=== PATIENT | male | born 1990 | race Caucasian/White ===

== ENCOUNTER 2021-10-15 11:33 | Emergency (ER) | payer SELFPAY ==
[2021-10-15 12:36] LABS: Basophils % 1.3 % (0-1.3); Hematocrit 43.5 % (39.6-49.0); Lymphocytes % 14.2 % (15.3-44.8); MPV 7.9 fL (7.6-11.3); RBC Red Blood Cell Count 4.84 M/uL (4.33-5.43)
--- NOTE | 2021-10-15 12:53 | RAD REPORT ---
EXAM DESCRIPTION: CT - Abdomen Pelvis W Contrast - 10/15/2021 12:36 pm CLINICAL HISTORY: Abdominal pain COMPARISON: none. TECHNIQUE: Computed axial tomography of the abdomen pelvis was obtained. 100 cc Isovue-300 was admin istered intravenously. Oral contrast was not requested which limits evaluation of bowel. All CT scans are performed using dose optimization technique as appropriate and may include automated exposure control or mA/KV adjustment according to patient size. FINDINGS: Mild fatty infiltration of the liver Spleen, pancreas, adrenal and kidneys appear unremarkable. There is no evidence of diverticulitis. Normal appendix 7 millimeter sclerosis right femoral neck. 14 millimeter sclerosis left acetabulum. Bladder is distended IMPRESSION: Sclerosis right femoral neck and left acetabulum is nonspecific. These may represent [place]. Blastic metastases can also have this appearance. This should be correlated clinically. Fo llowup x-ray in 3 months recommended to assess stability. Bladder distention
[2021-10-15 13:09] LABS: ALT/SGPT 154 U/L (12-78); AST/SGOT 71 U/L (15-37); Albumin 3.3 g/dL (3.4-5.0); Alkaline Phosphatase 190 U/L (45-117); BUN Blood Urea Nitrogen 8 mg/dL (7-18); Bicarbonate 29 mmol/L (21-32); Bilirubin Direct 0.2 mg/dL (0-0.2); Bilirubin Total 0.5 mg/dL (0.2-1.0); Glucose Level 101 mg/dL (74-106); Lipase 74 U/L (73-393); Potassium 3.7 mmol/L (3.5-5.1); Protein, Total 7.9 g/dL (6.4-8.2); Sodium Level 136 mmol/L (136-145)
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
--- NOTE | 2021-10-15 13:50 | EDPHYS ---
Physician Documentation [facility] Name: Sukhwinder Lorenzo Age: 31 yrs Sex: Male : 1990 Arrival Date: 10/15/2021 Time: 11:33 Bed 14 Private MD: ED Physician Raf Menon HPI: 10/15 17:09 This 31 yrs old Male presents to ER via Ambulatory with complaints of Swollen Glands, kb Abdominal Pain. 17:09 The patient presents with abdominal pain. Onset: The symptoms/episode began/occurred 2 kb day(s) ago. The symptoms do not radiate. Associated signs and symptoms: none. The symptoms are described as constant. Modifying factors: The symptoms are alleviated by nothing, the symptoms are aggravated by pressure. Severity of pain: At its worst the pain was moderate in the emergency department the pain is unchanged. The patient has not experienced similar symptoms in the past. The patient has not recently seen a physician. Pt reports LUQ pain that started 2 days ago. Concerned about abscess because he had one on the right side that felt similar. Historical: - Allergies: 11:43 No Known Allergies; vg1 - Home Meds: 11:43 None [Active]; vg1 - PMHx: 11:43 Hep C; vg1 - PSHx: 11:43 Abscess Drain from RUQ; vg1 - Immunization history:: Client reports receiving the 2nd dose of the Covid vaccine. - Social history:: Smoking status: Patient reports the use of cigarette tobacco products, smokes one-half pack cigarettes per day. ROS: 17:07 Constitutional: Negative for fever, chills, and weight loss. kb 17:07 Abdomen/GI: Positive for abdominal pain, Negative for nausea, vomiting, and diarrhea. 17:07 All other systems are negative. Exam: 17:07 Constitutional: This is a well developed, well nourished patient who is awake, alert, kb and in no acute distress. Head/Face: Normocephalic, atraumatic. ENT: Moist Mucous membranes Cardiovascular: Regular rate and rhythm with a normal S1 and S2. No gallops, murmurs, or rubs. No pulse deficits. Respiratory: Respirations even and unlabored. No increased work of breathing, no retractions or nasal flaring. Skin: Warm, dry with normal turgor. Normal color. MS/ Extremity: Pulses equal, no cyanosis. Neurovascular intact. Full, normal range of motion. Neuro: Awake and alert, GCS 15, oriented to person, place, time, and situation. Moves all extremities. Normal gait. Psych: Awake, alert, with orientation to person, place and time. Behavior, mood, and affect are within normal limits. 17:07 Abdomen/GI: Inspection: abdomen appears normal, Bowel sounds: normal, Palpation: soft, in all quadrants, moderate abdominal tenderness, in the left upper quadrant. Vital Signs: 11:41 BP 165 / 98; Pulse 89; Resp 16; Temp 97.9; Pulse Ox 100% ; Weight 62.6 kg; Height 5 ft. vg1 9 in. (175.26 cm); Pain 6/10; 12:43 BP 116 / 54; Pulse 77; Resp 18; Pulse Ox 100% ; Pain 8/10; jh6 11:41 Body Mass Index 20.38 (62.60 kg, 175.26 cm) vg1 MDM: 11:47 Patient medically screened. kb 17:07 Data reviewed: vital signs, nurses notes. Data interpreted: Pulse oximetry: on room air kb is 100 %. Interpretation: normal. Counseling: I had a detailed discussion with the patient and/or guardian regarding: the historical points, exam findings, and any diagnostic results supporting the discharge/admit diagnosis, lab results, radiology results, the need for outpatient follow up, a family practitioner, to return to the emergency department if symptoms worsen or persist or if there are any questions or concerns that arise at home. ED course: Discussed incidental finding of sclerosis and pt given copy of report. Pt educated to follow up with PCP for further evaluation. 10/15 12:00 Order name: Basic Metabolic Panel kb 10/15 12:00 Order name: CBC with Diff kb 10/15 12:00 Order name: Hepatic Function kb 10/15 12:00 Order name: Lipase kb 10/15 12:00 Order name: Basic Metabolic Panel; Complete Time: 13:13 EDMS 10/15 12:01 Order name: CBC with Automated Diff; Complete Time: 12:37 EDMS 10/15 12:00 Order name: IV Saline Lock; Complete Time: 12:23 kb 10/15 12:00 Order name: Labs collected and sent; Complete Time: 12:23 kb 10/15 12:00 Order name: CT Abd/Pelvis - IV Contrast Only; Complete Time: 12:54 kb 10/15 12:01 Order name: Liver (Hepatic) Function; Complete Time: 13:13 EDMS 10/15 12:01 Order name: Lipase; Complete Time: 13:13 EDMS Administered Medications: 13:50 CANCELLED (Patient Refused): morphine 4 mg IVP once; RASS on ADMIN: Combtv4, Very kb Agttd3, Agttd2, Rstlss1, AlertClm0, Drwsy-1, Lt Sdtn-2, Mod Sdtn-3, Dp Sdtn-4, UnArsble-5 14:00 Drug: Zofran (Ondansetron) 4 mg Route: IVP; Site: right antecubital; [facility] 14:10 Follow up: Response: No adverse reaction [facility] 14:00 Drug: Ketorolac 15 mg Route: IVP; Site: right antecubital; [facility] 14:10 Follow up: Response: No adverse reaction [facility] Disposition: 17:59 Co-signature as Attending Physician, Raf Menon MD I agree with the assessment and rn plan of care. Attestation: The patient's history, exam findings, diagnostics, and a summary of any interventions or procedures was reviewed in detail with Naty HELLER. Disposition Summary: 10/15/21 13:49 Discharge Ordered Location: Home kb Condition: Stable kb Diagnosis - Upper abdominal pain, unspecified kb Followup: kb - With: Emergency Department - When: As needed - Reason: Worsening of condition Followup: kb - With: Private Physician - When: 2 - 3 days - Reason: Recheck today's complaints, Continuance of care, Re-evaluation by your physician Discharge Instructions: - Discharge Summary Sheet kb - Abdominal Pain, Adult, Llyc-us-Ecph kb Forms: - Medication Reconciliation Form kb - Thank You Letter kb - Antibiotic Education kb - Prescription Opioid Use kb Prescriptions: - Diclofenac Sodium 75 mg Oral tablet,delayed release (DR/EC) - take 1 tablet by ORAL route 2 times per day As needed; 30 tablet; Refills: 0, kb Product Selection Permitted Signatures: Dispatcher [employer] Naty Campbell FNP-C FNP-Raf Guerrero MD MD rn Garcia, Victoria, RN RN [facility] Aminata Kelsey RN RN jh6 Corrections: (The following items were deleted from the chart) 13:50 13:33 morphine 4 mg IVP once; RASS on ADMIN: Combtv4, Very Agttd3, Agttd2, Rstlss1, kb AlertClm0, Drwsy-1, Lt Sdtn-2, Mod Sdtn-3, Dp Sdtn-4, UnArsble-5 ordered. kb
[2021-10-15] MEDS ORDERED: KETOROLAC 30 MG/ML INJ ONE (13:54)
[2021-10-15] MEDS ORDERED: ONDANSETRON 4 MG/2 ML VIAL ONE (13:54)
[2021-10-15 14:29] VITALS: TEMP 97.9; O2SAT 100
[2021-10-15 14:31] VITALS: BP 116/54
== END 2021-10-15 14:18 | disposition home or self-care (01) ==
LOC: ER 11:33
DX: R10.10 Upper abdominal pain, unspecified (principal); F17.210 Nicotine dependence, cigarettes, uncomplicated
CPT/HCPCS: 36415; 74177; 80048; 80076; 82565; 83690; 85025; 96374; 96375; 99284; J2405; Q9967

== ENCOUNTER 2021-11-12 03:02 | Emergency (ER) | payer SELFPAY ==
--- OUTSIDE RECORDS SUMMARY | 2021-11-12 03:05 | XMS REPORT | Continuity of Care Document ---
:[address] [facility] t Address [address] [place] [address] Care Team Providers Name Role Phone Pcp, Does Not Have A Primary Care Physician Therapy, Covid Infusion Attending Clinician Unavailable Braulio DRUMMOND, Lela Attending Clinician Lela RAMSEY Attending Clinician Unavailable Problems This patient has no known problems. Allergies, Adverse Reactions, Alerts Allergy Allergy Status Severity Reaction(s) Onset Inactive Treating Comm ents Source Name Type Date Date Clinician NO KNOWN Drug Active [facility] ALLERGIE Class ity of S [facility] Social History Social Habit Start Date Stop Date Quantity Comments Source Sex Assigned At [birth year] [facility] 00:00:00 00:00:00 [facility] Smoking Status Start Date Stop Date Source Unknown if ever smoked [facility] Medications Ordered Filled Start Stop Current Ordering Indication Dosage Frequency Signature Comments Components Source Medication Medication Date Date Medication? Clinician (SIG) Name Name casirivimab 2020-11- No [id number] 1200mg 1,200 mg, [facility] -imdevimab 12-28 Subcutaneo it y of (REGEN-COV 23:45: 22:33 [place], ONCE, [place] (EUA)) 00 :00 1 dose, On Medical injection [facility] (CO-FORMULA 10/27/21 TION) 1,200 at 1745, mg Routine Vital Signs Vital Name Observation Time Observation Value Comments Source Diastolic blood 2021-10-27 23:18:00 77 mm[Hg] Unive rsity of pressure [facility] Heart rate 2021-10-27 23:18:00 89 /min [facility] Body temperature 2021-10-27 23:18:00 37.22 [facility] 2021-10-27 23:18:00 20 /min [facility] Oxygen saturation in 2021-10-27 23:18:00 99 /min [facility] Arterial blood by [facility] Pulse oximetry [place] Systolic blood 2021-10-27 23:18:00 131 mm[Hg] Univer sity of pressure [facility] Body height 2021-10-27 22:30:00 170.2 cm [facility] Body weight 2021-10-27 22:30:00 61.689 kg [facility] BMI 2021-10-27 22:30:00 21.30 kg/m2 [facility] Procedures This patient has no known procedures. Encounters Start End Encounter Admission Attending Care Care Encounter Source Date/Time Date/Time Type Type Clinicians Facility Department ID 2021-10-27 2021-10-27 Nurse Therapy, Adc Covid Infusion [facility] [id number] [facility] 16:00:00 17:00:00 Visit Archie Ramsey [id number] ayden [facility] [id number] [facility] s SURGICAL [id number] [facility] [address] 2021-10-27 2021-10-27 Outpatient Rea RAMSEY [facility] [id number] [facility] 16:00:00 16:00:00 ARCHIE hensley [facility] Results This patient has no known results.
--- NOTE | 2021-11-12 04:57 | ER ---
Nurse's Notes [facility] Name: Sukhwinder Lorenzo Age: 31 yrs Sex: Male : 1990 Arrival Date: 11/12/2021 Time: 03:05 Bed Waiting Private MD: Diagnosis: ED Course: 11/12 03:05 Patient arrived in ED. 04:56 Patient's name was called from ER lobby. No response. Unable to locate patient. Will bb disposition as left without being seen by a provider. Administered Medications: No medications were administered Outcome: 04:56 Patient left the ED. bb Signatures: Yajaira Bullard RN RN bb Renetta Bejarano
== END 2021-11-12 04:56 | disposition left against medical advice (07) ==
LOC: ER 03:02
DX: Z02.89 Encounter for other administrative examinations (principal)

== ENCOUNTER 2021-11-13 12:09 | Emergency (ER) | payer SELFPAY ==
--- OUTSIDE RECORDS SUMMARY | 2021-11-13 12:12 | XMS REPORT | Continuity of Care Document ---
:1990 Author Organization [facility] t Address [address] [place] [address] Care Team Providers Name Role Phone Pcp, Does Not Have A Primary Care Physician Therapy, Covid Infusion Attending Clinician Unavailable Braulio DRUMMOND, Lela Attending Clinician Lela RAMSEY Attending Clinician Unavailable Problems This patient has no known problems. Allergies, Adverse Reactions, Alerts Allergy Allergy Status Severity Reaction(s) Onset Inactive Treating Comm ents Source Name Type Date Date Clinician NO KNOWN Drug Active [facility] ALLERGIE Class ity [facility] Social History Social Habit Start Date Stop Date Quantity Comments Source Sex Assigned At [birth year] [facility] 00:00:00 00:00:00 [facility] Smoking Status Start Date Stop Date Source Unknown if ever smoked [facility] Medications Ordered Filled Start Stop Current Ordering Indication Dosage Frequency Signature Comments Components Source Medication Medication Date Date Medication? Clinician (SIG) Name Name casirivimab 2020-11- No [id number] 1200mg 1,200 mg, [facility] -imdevimab 12-28 Subcutaneo it y of (REGEN-COV 23:45: 22:33 us, ONCE, [place] (EUA)) 00 :00 1 dose, On Medical injection [facility] (CO-FORMULA 10/27/21 TION) 1,200 at 1745, mg Routine Vital Signs Vital Name Observation Time Observation Value Comments Source Diastolic blood 2021-10-27 23:18:00 77 mm[Hg] Unive rsity of pressure [facility] Heart rate 2021-10-27 23:18:00 89 /min [facility] Body temperature 2021-10-27 23:18:[address] [facility] rate 2021-10-27 23:18:00 20 /min [facility] Oxygen saturation in 2021-10-27 23:18:00 99 /min [facility] Arterial blood by [facility] Pulse oximetry [place] Systolic blood 2021-10-27 23:18:00 131 mm[Hg] Univer sity of pressure [facility] Body height 2021-10-27 22:30:00 170.2 cm [facility] Body weight 2021-10-27 22:30:00 61.689 kg [facility] BMI 2021-10-27 22:30:00 21.30 kg/m2 [facility] Procedures This patient has no known procedures. Encounters Start End Encounter Admission Attending Care Care Encounter Source Date/Time Date/Time Type Type Clinicians Facility Department ID 2021-10-27 2021-10-27 Nurse Therapy, Adc Covid Infusion [facility] [id number] [facility] 16:00:00 17:00:00 Visit Archie Ramsey [id number] ayden [facility] [id number] [facility] SURGICAL [id number] [facility] [address] 2021-10-27 2021-10-27 Outpatient R BARULIO [facility] [id number] [facility] 16:00:00 16:00:00 ARCHIE hensley [facility] Results This patient has no known results.
[2021-11-13 13:35] LABS: Absolute Lymphocytes (CBC) 0.7 K/uL (0.7-4.9); Hematocrit 36.5 % (39.6-49.0); MPV 7.7 fL (7.6-11.3)
[2021-11-13 13:45] LABS: ALT/SGPT 138 U/L (12-78); AST/SGOT 102 U/L (15-37); Albumin 2.6 g/dL (3.4-5.0); Alkaline Phosphatase 415 U/L (45-117); BUN Blood Urea Nitrogen 11 mg/dL (7-18); Bicarbonate 26 mmol/L (21-32); Bilirubin Direct 0.5 mg/dL (0-0.2); Bilirubin Total 0.9 mg/dL (0.2-1.0); Glucose Level 91 mg/dL (74-106); Lipase 135 U/L (73-393); Potassium 3.8 mmol/L (3.5-5.1); Protein, Total 8.1 g/dL (6.4-8.2); Sodium Level 135 mmol/L (136-145)
[2021-11-13] MEDS ORDERED: MORPHINE 4 MG/ML SYR ONE (14:05)
[2021-11-13] MEDS ORDERED: ONDANSETRON 4 MG/2 ML VIAL ONE (14:06)
--- NOTE | 2021-11-13 14:26 | RAD REPORT ---
EXAM DESCRIPTION: CT - Soft Tissue Neck W/Contr CLINICAL HISTORY: thorat swelling COMPARISON: No comparisonsAbdomen Pelvis W Contrast dated 11/13/[address] scans are performed using dose optimization technique as appropriate and may includ e automated exposure control or mA/KV adjustment according to patient size. FINDINGS: Bilateral enlarged submental lymph nodes. Enlarged cervical chain lymph nodes noted as wel l. Example, there is a left level 2 cervical chain lymph node measuring 14 millimeters. A left submen juliana lymph node measures 15 millimeters. A right lower cervical chain/supraclavicular lymph node measu res 15 millimeters. Nasopharyngeal tissues are normal in appearance. Fossa Rosenmller are normal. Parapharyngeal fat triangles are symmetric. Tongue base structures are normal. Epiglottis and aryepiglottic folds are normal. Piriform sinuses are well aerated. The vocal cords are normal in appearance. Salivary glands are normal in appearance. Upper lung durant are clear. Included intracranial contents are unremarkable. IMPRESSION: Bilateral cervical chain lymphadenopathy which may refer either infection or inflammatio n versus a lymphoproliferative process.
--- NOTE | 2021-11-13 14:31 | RAD REPORT ---
EXAM DESCRIPTION: CTAbdomen Pelvis W Contrast - 11/13/2021 2:12 pm CLINICAL HISTORY: abdominal pain COMPARISON: Abdomen Pelvis W Contrast dated 10/15/2021 TECHNIQUE: CT of the abdomen and pelvis was performed. All CT scans are performed using dose optimization technique as appropriate and may include automated exposure control or mA/KV adjustment according to patient size. FINDINGS: Lower chest: Small lower lung pulmonary nodules, the largest measuring 4 millimeters in th e medial aspect of the right lower lobe. These are most certainly benign. Liver: No acute abnormality or suspicious lesions. Biliary: No biliary ductal dilatation. Stomach: No significant focal abnormality. Duodenum: No significant focal abnormality. Pancreas: No significant abnormality. Spleen: Borderline splenomegaly. Adrenal: No suspicious lesions. Kidney/ureter: No hydronephrosis. No renal calculi. Retroperitoneum: No retroperitoneal adenopathy. Vascular: No aneurysm. Bowel: No significant focal abnormality. Normal appendix. Peritoneum: No ascites or free air. Bladder: Grossly unremarkable. Reproductive: No adnexal masses. Bones: No acute fracture. Other: n/a IMPRESSION: No acute intra-abdominal or pelvic finding. Normal appendix.
--- NOTE | 2021-11-13 14:40 | EDPHYS ---
Physician Documentation [facility] Name: Sukhwinder Lorenzo Age: 31 yrs Sex: Male : 1990 Arrival Date: 11/13/2021 Time: 12:15 Bed DIS4 Private MD: ED Physician Darshan Yang HPI: 11/13 13:15 This 31 yrs old Male presents to ER via Ambulatory with complaints of Throat Swelling. jmm 13:15 The patient presents with abdominal pain. Onset: The symptoms/episode began/occurred. jmm The symptoms do not radiate. Associated signs and symptoms: Pertinent positives: nausea. The symptoms are described as achy. Modifying factors: The symptoms are alleviated by nothing, the symptoms are aggravated by nothing. The patient has experienced similar episodes in the past, chronically. Historical: - Allergies: 12:50 No Known Allergies; iw - Home Meds: 12:50 None [Active]; iw - PMHx: 12:50 HEP C; iw 14:31 Drug abuse; iw - PSHx: 12:50 Abscess Drain from RUQ; iw - Immunization history:: Client reports receiving the 2nd dose of the Covid vaccine. - Social history:: Smoking status: Patient reports the use of cigarette tobacco products. ROS: 13:15 Constitutional: Negative for fever, chills, and weight loss, Eyes: Negative for injury, jmm pain, redness, and discharge, ENT: Negative for injury, pain, and discharge, Neck: Negative for injury, pain, and swelling, Cardiovascular: Negative for chest pain, palpitations, and edema, Respiratory: Negative for shortness of breath, cough, wheezing, and pleuritic chest pain. 13:15 Skin: Negative for injury, rash, and discoloration, Neuro: Negative for headache, weakness, numbness, tingling, and seizure, Psych: Negative for depression, anxiety, suicide ideation, homicidal ideation, and hallucinations, Allergy/Immunology: Negative for hives, rash, and allergies. 13:15 Abdomen/GI: Positive for abdominal pain, nausea. 13:15 All other systems are negative. Exam: 13:15 Constitutional: This is a well developed, well nourished patient who is awake, alert, jmm and in no acute distress. Head/Face: atraumatic. Eyes: EOMI, no conjunctival erythema appreciated ENT: Moist Mucus Membranes Neck: Trachea midline, Supple Chest/axilla: Normal chest wall appearance and motion. Cardiovascular: Regular rate and rhythm. No edema appreciated Respiratory: Normal respirations, no respiratory distress appreciated 13:15 Back: Normal ROM Skin: General appearance color normal MS/ Extremity: Moves all extremities, no obvious deformities appreciated, no edema noted to the lower extremities Neuro: Awake and alert, normal gait Psych: Behavior is normal, Mood is normal, Patient is cooperative and pleasant 13:15 Abdomen/GI: Inspection: abdomen appears normal, Bowel sounds: normal, Palpation: soft, mild abdominal tenderness, in all quadrants. Vital Signs: 12:48 BP 138 / 80; Pulse 100; Resp 16; Temp 98.3; Pulse Ox 100% on R/A; Weight 62.14 kg; iw Height 5 ft. 8 in. (172.72 cm); 12:48 Body Mass Index 20.83 (62.14 kg, 172.72 cm) iw MDM: 13:22 Patient medically screened. zaira 14:38 Data reviewed: vital signs, nurses notes. Counseling: I had a detailed discussion with zaira the patient and/or guardian regarding: the historical points, exam findings, and any diagnostic results supporting the discharge/admit diagnosis, lab results, radiology results, the need for outpatient follow up, to return to the emergency department if symptoms worsen or persist or if there are any questions or concerns that arise at home. ED course: Is alert and nontoxic in appearance in the ED. Pain is decreased in the ED. Patient advised to follow gastroenterology for further evaluation. Lymph nodes could be secondary to immunocompromise state. Patient is otherwise given strict return precautions. Patient understood and agrees plan of care.. 11/13 13:15 Order name: Basic Metabolic Panel; Complete Time: 13:48 [facility] 11/13 13:15 Order name: CBC with Diff; Complete Time: 13:48 [facility] 11/13 13:15 Order name: Hepatic Function; Complete Time: 13:48 [facility] 11/13 13:15 Order name: Lipase; Complete Time: 13:48 [facility] 11/13 13:15 Order name: CT Soft Tissue Neck W/contr; Complete Time: 14:32 [facility] 11/13 13:15 Order name: CT Abd/Pelvis - IV Contrast Only; Complete Time: 14:32 [facility] 11/13 13:15 Order name: IV Saline Lock; Complete Time: 13:24 [facility] 11/13 13:15 Order name: Labs collected and sent; Complete Time: 13:24 [facility] Administered Medications: 14:26 Drug: morphine 4 mg Route: IVP; Site: left forearm; iw 14:50 Follow up: Response: No adverse reaction iw 14:26 Drug: Zofran (Ondansetron) 4 mg Route: IVP; Site: left forearm; iw 14:50 Follow up: Response: No adverse reaction iw Disposition: 18:53 Co-signature as Attending Physician, Darshan Yang MD I agree with the assessment and kdr plan of care. Disposition Summary: 11/13/21 14:39 Discharge Ordered Location: Home [facility] Condition: Stable [facility] Diagnosis - Abdominal pain, unspecified [facility] - Localized enlarged lymph nodes [facility] Followup: [facility] - With: Blanca Valencia MD - When: 2 - 3 days - Reason: Recheck today's complaints, Continuance of care, Re-evaluation by your physician Discharge Instructions: - Discharge Summary Sheet [facility] - Abdominal Pain, Adult jm - Lymphadenopathy [facility] Forms: - Medication Reconciliation Form [facility] - Thank You Letter [facility] - Antibiotic Education [facility] - Prescription Opioid Use [facility] Prescriptions: - ondansetron 4 mg Oral tablet,disintegrating - place 1 tablet by TRANSLINGUAL route every 4-6 hours; 20 tablet; Refills: 0, [facility] Product Selection Permitted - Pepcid 20 mg Oral Tablet - take 1 tablet by ORAL route every 12 hours for 10 days; 20 tablet; Refills: 0, [facility] Product Selection Permitted - Augmentin 875-125 mg Oral Tablet - take 1 tablet by ORAL route every 12 hours for 10 days; 20 tablet; Refills: 0, [facility] Product Selection Permitted - dicyclomine 20 mg Oral Tablet - take 1 tablet by ORAL route 4 times per day; 30 tablet; Refills: 0, Product [facility] Selection Permitted Signatures: Dispatcher [employer] Darshan Cox MD MD kdr Mickail, Joel, PA PA [facility] Amaya Patino RN RN iw
--- NOTE | 2021-11-13 14:40 | ER ---
Nurse's Notes [facility] Name: Sukhwinder Lorenzo Age: 31 yrs Sex: Male : 1990 Arrival Date: 11/13/2021 Time: 12:15 Bed DIS4 Private MD: Diagnosis: Abdominal pain, unspecified;Localized enlarged lymph nodes Presentation: 11/13 12:48 Chief complaint: Patient states: swelling to left side of neck started a week ago, is iw having chills, pain with swallowing, getting bigger , has been septic in past from and abscess under his ribs. Coronavirus screen: At this time, the client does not indicate any symptoms associated with coronavirus-19. Ebola Screen: Patient negative for fever greater than or equal to 101.5 degrees Fahrenheit, and additional compatible Ebola Virus Disease symptoms Patient denies exposure to infectious person. Patient denies travel to an Ebola-affected area in the 21 days before illness onset. No symptoms or risks identified at this time. Initial Sepsis Screen: Does the patient meet any 2 criteria? HR > 90 bpm. Does the patient have a suspected source of infection?. Risk Assessment: Do you want to hurt yourself or someone else? Patient reports no desire to harm self or others. Onset of symptoms was November 06, 2021. 12:48 Method Of Arrival: Ambulatory iw 12:48 Acuity: PARISA 3 iw Historical: - Allergies: 12:50 No Known Allergies; iw - Home Meds: 12:50 None [Active]; iw - PMHx: 12:50 HEP C; iw 14:31 Drug abuse; iw - PSHx: 12:50 Abscess Drain from RUQ; iw - Immunization history:: Client reports receiving the 2nd dose of the Covid vaccine. - Social history:: Smoking status: Patient reports the use of cigarette tobacco products. Screenin:42 Abuse screen: Denies threats or abuse. Denies injuries from another. Nutritional iw screening: No deficits noted. Tuberculosis screening: No symptoms or risk factors identified. Fall Risk IV access (20 points). Assessment: 13:41 General: Appears in no apparent distress. Behavior is calm, cooperative. Pain: iw Complains of pain in neck. Neuro: Level of Consciousness is awake, alert, obeys commands, Oriented to person, place, time, situation, Moves all extremities. Full function. Cardiovascular: Patient's skin is warm and dry. Respiratory: Respiratory effort is even, unlabored, Respiratory pattern is regular, symmetrical. Derm: Skin is intact, is healthy with good turgor. Vital Signs: 12:48 BP 138 / 80; Pulse 100; Resp 16; Temp 98.3; Pulse Ox 100% on R/A; Weight 62.14 kg; iw Height 5 ft. 8 in. (172.72 cm); 12:48 Body Mass Index 20.83 (62.14 kg, 172.72 cm) iw ED Course: 12:15 Patient arrived in ED. mr 12:28 John Fabian PA is PHCP. [facility] 12:28 Darshan Yang MD is Attending Physician. [facility] 12:50 Triage completed. iw 12:50 Arm band placed on. iw 13:25 Initial lab(s) drawn, by ms, sent to lab. Inserted saline lock: 20 gauge in left kj1 forearm, using aseptic technique. Blood collected. 13:41 Amaya Patino, RN is Primary Nurse. iw 13:41 Patient has correct armband on for positive identification. iw 14:12 CT Soft Tissue Neck W/contr In Process Unspecified. EDMS 14:12 CT Abd/Pelvis - IV Contrast Only In Process Unspecified. EDMS 14:38 Blanca Valencia MD is Referral Physician. [facility] 15:08 No provider procedures requiring assistance completed. Patient did not have IV access iw during this emergency room visit. Administered Medications: 14:26 Drug: morphine 4 mg Route: IVP; Site: left forearm; iw 14:50 Follow up: Response: No adverse reaction iw 14:26 Drug: Zofran (Ondansetron) 4 mg Route: IVP; Site: left forearm; iw 14:50 Follow up: Response: No adverse reaction iw Outcome: 14:39 Discharge ordered by . jmm 15:08 Discharged to home ambulatory, with family. iw 15:08 Condition: good 15:08 Discharge instructions given to patient, Instructed on discharge instructions, follow up and referral plans. Demonstrated understanding of instructions, follow-up care. 15:09 Patient left the ED. iw Signatures: Dispatcher [employer] EDMS John Fabian PA PA Zaira Rangel mr Amaya Patino, NELY RN iw Hannah Ying kj1
[2021-11-13 15:20] VITALS: BP 138/80; TEMP 98.3; O2SAT 100
== END 2021-11-13 15:09 | disposition home or self-care (01) ==
LOC: ER 12:09
DX: R10.9 Unspecified abdominal pain (principal); R59.0 Localized enlarged lymph nodes
CPT/HCPCS: 36415; 70491; 74177; 80048; 80076; 83690; 85025; 96374; 96375; 99284; J2405; Q9967

== ENCOUNTER 2021-11-14 15:34 | Emergency (ER) | payer SELFPAY ==
--- OUTSIDE RECORDS SUMMARY | 2021-11-14 15:37 | XMS REPORT | Continuity of Care Document ---
:1990 Author Organization [facility] t Address [address] [place] [address] Care Team Providers Name Role Phone Pcp, Does Not Have A Primary Care Physician Therapy, Covid Infusion Attending Clinician Unavailable Braulio DRUMMOND, Lela Attending Clinician Lela RAMSEY Attending Clinician Unavailable Problems This patient has no known problems. Allergies, Adverse Reactions, Alerts Allergy Allergy Status Severity Reaction(s) Onset Inactive Treating Comm ents Source Name Type Date Date Clinician NO KNOWN Drug Active [facility] ALLERGIE Class ity of S [facility] Social History Social Habit Start Date Stop Date Quantity Comments Source Sex Assigned At [birth year] [facility] 00:00:00 00:00:00 [facility] Smoking Status Start Date Stop Date Source Unknown if ever smoked [facility] Medications Ordered Filled Start Stop Current Ordering Indication Dosage Frequency Signature Comments Components Source Medication Medication Date Date Medication? Clinician (SIG) Name Name casirivimab 2020-11- No [id number] 1200mg 1,200 mg, Univers -imdevimab 12-28 Subcutaneo it y of (REGEN-COV 23:45: 22:33 [place], ONCE, [place] (EUA)) 00 :00 1 dose, On Medical injection [facility] (CO-FORMULA 10/27/21 TION) 1,200 at 1745, mg Routine Vital Signs Vital Name Observation Time Observation Value Comments Source Diastolic blood 2021-10-27 23:18:00 77 mm[Hg] Unive rsity of pressure [facility] Heart rate 2021-10-27 23:18:00 89 /min [facility] Body temperature 2021-10-27 23:18:00 37.22 [facility] Respiratory rate 2021-10-27 23:18:00 20 /min [facility] Oxygen saturation in 2021-10-27 23:18:00 99 /min [facility] Arterial blood by [facility] Pulse oximetry [place] Systolic blood 2021-10-27 23:18:00 131 mm[Hg] Univer sity of pressure [facility] Body height 2021-10-27 22:30:00 170.2 cm [facility] Body weight 2021-10-27 22:30:00 61.689 kg [facility] BMI 2021-10-27 22:30:00 21.30 kg/m2 [facility] Procedures This patient has no known procedures. Encounters Start End Encounter Admission Attending Care Care Encounter Source Date/Time Date/Time Type Type Clinicians Facility Department ID 2021-10-27 2021-10-27 Nurse Therapy, Adc Covid Infusion [facility] [[email or web address] [id number] [facility] 16:00:00 17:00:00 Visit Archie Ramsey [id number] ayden [facility] [id number] [facility] SURGICAL [id number] [facility] CENTER [address] 2021-10-27 2021-10-27 Outpatient Rea RAMSEY [facility] [id number] [facility] 16:00:00 16:00:00 ARCHIE hensley [facility] Results This patient has no known results.
[2021-11-14 17:53] LABS: Protime INR 1.19
[2021-11-14 18:02] LABS: Absolute Lymphocytes (CBC) 0.4 K/uL (0.7-4.9); Hematocrit 33.8 % (39.6-49.0); MPV 8.1 fL (7.6-11.3); RBC Red Blood Cell Count 3.71 M/uL (4.33-5.43)
[2021-11-14 18:08] LABS: ALT/SGPT 115 U/L (12-78); AST/SGOT 89 U/L (15-37); Albumin 2.4 g/dL (3.4-5.0); Alkaline Phosphatase 446 U/L (45-117); BUN Blood Urea Nitrogen 11 mg/dL (7-18); Bicarbonate 23 mmol/L (21-32); Bilirubin Direct 0.6 mg/dL (0-0.2); Glucose Level 142 mg/dL (74-106); NT PRO-BNP 190 pg/mL (<125); Potassium 3.9 mmol/L (3.5-5.1); Protein, Total 7.5 g/dL (6.4-8.2); Sodium Level 135 mmol/L (136-145); Troponin (Emerg Dept Use Only) < 0.02 ng/mL (0.0-0.045)
--- NOTE | 2021-11-14 18:08 | RAD REPORT ---
EXAM DESCRIPTION: RAD - Chest Single View - 11/14/2021 6:00 pm CLINICAL HISTORY: CHEST PAIN Chest pain. COMPARISON: No comparisons FINDINGS: Portable technique limits examination quality. Mild bilateral interstitial lung markings are seen suggesting a viral pneumonitis. The heart is darrell l in size. No displaced fractures.
[2021-11-14] MEDS ORDERED: NA CHLORIDE 0.9% 1,000 ML ONE (20:03)
[2021-11-14] MEDS ORDERED: KETOROLAC 30 MG/ML INJ ONE (20:03)
--- NOTE | 2021-11-14 20:36 | ER ---
Nurse's Notes [facility] Name: Sukhwinder Lorenzo Age: 31 yrs Sex: Male : 1990 Arrival Date: 11/14/2021 Time: 15:35 Bed 10 Private MD: Diagnosis: Abdominal pain, unspecified;Chest pain, unspecified Presentation: 11/14 15:58 Chief complaint: Patient states: upper abd pain that started 6 days ago and has gotten iw worse. Coronavirus screen: Vaccine status: Patient reports receiving the 2nd dose of the covid vaccine. Ebola Screen: Patient negative for fever greater than or equal to 101.5 degrees Fahrenheit, and additional compatible Ebola Virus Disease symptoms Patient denies exposure to infectious person. Patient denies travel to an Ebola-affected area in the 21 days before illness onset. No symptoms or risks identified at this time. Initial Sepsis Screen: Does the patient meet any 2 criteria? No. Patient's initial sepsis screen is negative. Does the patient have a suspected source of infection? No. Patient's initial sepsis screen is negative. Risk Assessment: Do you want to hurt yourself or someone else? Patient reports no desire to harm self or others. Onset of symptoms was November 09, 2021. 15:58 Method Of Arrival: Ambulatory iw 15:58 Acuity: PARISA 3 iw Triage Assessment: 16:00 General: Appears in no apparent distress. comfortable, Behavior is calm, cooperative. iw Pain: Complains of pain in right upper quadrant and left upper quadrant Pain currently is 8 out of 10 on a pain scale. GI:. GI: Reports upper abdominal pain. Historical: - Allergies: 15:59 No Known Allergies; iw - Home Meds: 15:59 None [Active]; iw - PMHx: 15:59 HEP C; drug abuse; iw - PSHx: 15:59 Abscess Drain from RUQ; iw - Immunization history:: Adult Immunizations up to date, Client reports receiving the 2nd dose of the Covid vaccine. - Social history:: Smoking status: Patient reports the use of cigarette tobacco products, smokes one-half pack cigarettes per day. Screenin:17 Abuse screen: Denies threats or abuse. Nutritional screening: No deficits noted. al4 Tuberculosis screening: No symptoms or risk factors identified. Fall Risk None identified. Assessment: 20:06 General: Appears in no apparent distress. comfortable, Behavior is calm, cooperative, al4 patient is complaining of pain in his abdomen that has been going on for 5-6 days. abdomen is flat, non tender. . Pain: Complains of pain in abdomen Pain currently is 8 out of 10 on a pain scale. Neuro: Level of Consciousness is awake, alert, obeys commands, Oriented to person, place, time. Cardiovascular: Heart tones present Capillary refill < 3 seconds Patient's skin is warm and dry. Respiratory: Airway is patent Respiratory effort is even, unlabored, Respiratory pattern is regular, symmetrical, Breath sounds are clear bilaterally. GI: Abdomen is non-distended, Bowel sounds present X 4 quads. Abd is soft and non tender. : No signs and/or symptoms were reported regarding the genitourinary system. EENT: No signs and/or symptoms were reported regarding the EENT system. Derm: No signs and/or symptoms reported regarding the dermatologic system. Musculoskeletal: No signs and/or symptoms reported regarding the musculoskeletal system. 20:59 Reassessment: No changes from previously documented assessment. Patient and/or family al4 updated on plan of care and expected duration. Pain level reassessed. Vital Signs: 16:01 BP 126 / 69; Pulse 118; Resp 20; Temp 99.3; Pulse Ox 100% ; Weight 62.14 kg; Height 5 iw ft. 8 in. (172.72 cm); Pain 8/10; 19:54 BP 101 / 56; Pulse 86; Resp 18; Pulse Ox 99% ; Pain 8/10; al4 20:59 BP 109 / 59; Pulse 87; Resp 18; Pulse Ox 100% ; al4 16:01 Body Mass Index 20.83 (62.14 kg, 172.72 cm) iw ED Course: 15:35 Patient arrived in ED. as 15:58 Triage completed. iw 16:00 Arm band placed on left wrist. iw 17:05 Jan Serna NP is PHCP. pm1 17:05 Bravo Mora MD is Attending Physician. pm1 17:35 Initial lab(s) drawn, by me, sent to lab. Inserted saline lock: 20 gauge in right kj1 antecubital area, using aseptic technique. Blood collected. 18:01 XRAY Chest (1 view) In Process Unspecified. EDMS 20:07 Patel Boyle is Primary Nurse. al4 21:17 Patient has correct armband on for positive identification. al4 21:17 No provider procedures requiring assistance completed. IV discontinued, intact, al4 bleeding controlled, No redness/swelling at site. Pressure dressing applied. Administered Medications: 20:06 Drug: NS 0.9% 1000 ml Route: IV; Rate: 1000 ml; Site: right antecubital; al4 21:22 Follow up: Response: No adverse reaction; IV Status: Completed infusion al4 20:06 Drug: Ketorolac 30 mg Route: IVP; Site: right antecubital; al4 21:22 Follow up: Response: No adverse reaction al4 20:59 Drug: GI Cocktail without - (Maalox Suspension 30 ml, Lidocaine Liquid 2 % 15 al4 ml) Route: PO; 21:22 Follow up: Response: No adverse reaction al4 Outcome: 20:35 Discharge ordered by MD. pm1 21:17 Discharged to home ambulatory, with ride al4 21:17 Condition: stable 21:17 Discharge instructions given to patient, friend, Instructed on discharge instructions, follow up and referral plans. Demonstrated understanding of instructions, follow-up care. 21:22 Patient left the ED. al4 Signatures: Dispatcher [employer] EDMS Mary Boone Irene, RN RN Jan Harris NP [employer] pm1 Hannah Ying kj1 Patel Boyle al4 Corrections: (The following items were deleted from the chart) 21:21 20:06 General: Appears in no apparent distress. comfortable, Behavior is calm, al4 cooperative, al4
--- NOTE | 2021-11-14 20:36 | EDPHYS ---
Physician Documentation [facility] Name: Sukhwinder Lorenzo Age: 31 yrs Sex: Male : 1990 Arrival Date: 11/14/2021 Time: 15:35 Bed 10 Private MD: ED Physician Bravo Mora HPI: 11/14 17:19 This 31 yrs old Male presents to ER via Ambulatory with complaints of Abdominal Pain. pm1 17:19 The patient presents with abdominal pain in the upper abdomen. Onset: The pm1 symptoms/episode began/occurred 3 day(s) ago. The symptoms do not radiate. Associated signs and symptoms: Pertinent positives: chest pain, Pertinent negatives: nausea, vomiting, and diarrhea, dysuria, fever, shortness of breath. The symptoms are described as sharp. Modifying factors: The symptoms are alleviated by nothing, the symptoms are aggravated by nothing. Severity of pain: in the emergency department the pain is actually worse. The patient has experienced similar episodes in the past, a few times. The patient has been recently seen at the [facility] Emergency Department, yesterday, for similar complaints labs were performed, CT scan was performed, was given a prescription for antibiotics, was given a prescription for pain medications. Historical: - Allergies: 15:59 No Known Allergies; iw - Home Meds: 15:59 None [Active]; iw - PMHx: 15:59 HEP C; drug abuse; iw - PSHx: 15:59 Abscess Drain from RUQ; iw - Immunization history:: Adult Immunizations up to date, Client reports receiving the 2nd dose of the Covid vaccine. - Social history:: Smoking status: Patient reports the use of cigarette tobacco products, smokes one-half pack cigarettes per day. ROS: 17:19 Constitutional: Negative for fever, chills, and weight loss. pm1 17:19 Respiratory: Negative for shortness of breath, cough, wheezing, and pleuritic chest pain. 17:19 Back: Negative for injury and pain, MS/Extremity: Negative for injury and deformity, Skin: Negative for injury, rash, and discoloration, Neuro: Negative for headache, weakness, numbness, tingling, and seizure. 17:19 Cardiovascular: Positive for chest pain, Negative for palpitations. 17:19 Abdomen/GI: Positive for abdominal pain, of the right upper quadrant and left upper quadrant, Negative for nausea, vomiting, and diarrhea, constipation. 17:19 All other systems are negative. Exam: 17:19 Constitutional: This is a well developed, well nourished patient who is awake, alert, pm1 and in no acute distress. Head/Face: Normocephalic, atraumatic. Chest/axilla: Normal chest wall appearance and motion. Nontender with no deformity. No lesions are appreciated. Cardiovascular: Regular rate and rhythm with a normal S1 and S2. No gallops, murmurs, or rubs. Normal PMI, no JVD. No pulse deficits. Respiratory: Lungs have equal breath sounds bilaterally, clear to auscultation and percussion. No rales, rhonchi or wheezes noted. No increased work of breathing, no retractions or nasal flaring. 17:19 Back: No spinal tenderness. No costovertebral tenderness. Full range of motion. Skin: Warm, dry with normal turgor. Normal color with no rashes, no lesions, and no evidence of cellulitis. MS/ Extremity: Pulses equal, no cyanosis. Neurovascular intact. Full, normal range of motion. 17:19 Abdomen/GI: Inspection: abdomen appears normal, Palpation: abdomen is soft and non-tender, in all quadrants. 17:19 Neuro: Exam negative for acute changes, Orientation: is normal, Mentation: is normal, Motor: is normal, moves all fours. Vital Signs: 16:01 BP 126 / 69; Pulse 118; Resp 20; Temp 99.3; Pulse Ox 100% ; Weight 62.14 kg; Height 5 iw ft. 8 in. (172.72 cm); Pain 8/10; 19:54 BP 101 / 56; Pulse 86; Resp 18; Pulse Ox 99% ; Pain 8/10; al4 20:59 BP 109 / 59; Pulse 87; Resp 18; Pulse Ox 100% ; al4 16:01 Body Mass Index 20.83 (62.14 kg, 172.72 cm) iw MDM: 17:10 ED course: Patient was seen in the ER yesterday with abdominal work up, which included pm1 CT abd/pelvis and labs. Patient no acute findings yesterday, elevated LFTs with history of hepatitis C and drug abuse. Patient reports continued abdominal pain and chest pain. Will repeat blood work and add cardiac evaluation. 17:26 Patient medically screened. pm1 20:20 Data reviewed: vital signs. pm1 20:33 ED course: Patient was discharged home with Bentyl, Pepcid, and Augmentin which are pm1 appropriate medications for the patient to go home with. Patient with history of drug abuse, therefore I will not prescribe the patient any narcotics. 11/14 17:07 Order name: Basic Metabolic Panel pm1 11/14 17:07 Order name: CBC with Diff pm1 11/14 17:07 Order name: LFT's pm1 11/14 17:07 Order name: Magnesium; Complete Time: 18:13 pm1 11/14 17:07 Order name: NT PRO-BNP; Complete Time: 18:13 pm1 11/14 17:07 Order name: PT-INR; Complete Time: 18:13 pm1 11/14 17:07 Order name: Troponin (emerg Dept Use Only); Complete Time: 18:13 pm1 11/14 17:07 Order name: XRAY Chest (1 view); Complete Time: 18:13 pm1 11/14 17:07 Order name: Burt Screen Profile; Complete Time: 18:39 pm1 11/14 17:08 Order name: Basic Metabolic Panel; Complete Time: 18:13 EDMS 11/14 17:08 Order name: CBC with Automated Diff; Complete Time: 18:13 EDMS 11/14 17:08 Order name: Liver (Hepatic) Function; Complete Time: 18:13 EDMS 11/14 17:07 Order name: EKG; Complete Time: 17:08 pm1 11/14 17:07 Order name: EKG - Nurse/Tech; Complete Time: 20:30 pm1 11/14 17:07 Order name: IV Saline Lock; Complete Time: 18:18 pm1 11/14 17:07 Order name: Labs collected and sent; Complete Time: 18:18 pm1 11/14 17:07 Order name: O2 Per Protocol; Complete Time: 20:07 pm1 11/14 17:07 Order name: O2 Sat Monitoring; Complete Time: 20:07 pm1 Administered Medications: 20:06 Drug: NS 0.9% 1000 ml Route: IV; Rate: 1000 ml; Site: right antecubital; al4 21:22 Follow up: Response: No adverse reaction; IV Status: Completed infusion al4 20:06 Drug: Ketorolac 30 mg Route: IVP; Site: right antecubital; al4 21:22 Follow up: Response: No adverse reaction al4 20:59 Drug: GI Cocktail without - (Maalox Suspension 30 ml, Lidocaine Liquid 2 % 15 al4 ml) Route: PO; 21:22 Follow up: Response: No adverse reaction al4 Disposition: 11/15 08:48 Co-signature as Attending Physician, Bravo Mora MD I agree with the assessment and tom plan of care. Disposition Summary: 11/14/21 20:35 Discharge Ordered Location: Home pm1 Problem: new pm1 Symptoms: have improved pm1 Condition: Stable pm1 Diagnosis - Abdominal pain, unspecified pm1 - Chest pain, unspecified pm1 Followup: pm1 - With: Emergency Department - When: As needed - Reason: Worsening of condition Followup: pm1 - With: Private Physician - When: 2 - 3 days - Reason: Recheck today's complaints, Continuance of care, Re-evaluation by your physician Discharge Instructions: - Discharge Summary Sheet pm1 - Abdominal Pain, Adult pm1 - Nonspecific Chest Pain, Adult pm1 Forms: - Medication Reconciliation Form pm1 - Thank You Letter pm1 - Antibiotic Education pm1 - Prescription Opioid Use pm1 Signatures: Dispatcher [employer] Bravo Carter MD MD cha Williams, Irene, RN RN iw Marinas, Patrick, NP BUSINESS CENTER MANAGER pm1 Patel Boyle al4
[2021-11-14] MEDS ORDERED: LIDOCAINE VISCOUS 2% SOLN 15 ML UDC ONE (20:52)
[2021-11-14] MEDS ORDERED: MAGNES/ALUMIN/SIMET 30ML UCUP ONE (20:52)
[2021-11-14 21:30] VITALS: TEMP 99.3
[2021-11-14 21:33] VITALS: BP 109/59; O2SAT 100
--- NOTE | 2021-11-15 11:16 | EKG ---
Test Date: 2021-11-14 Test Time: 20:30:34 Toy Maker: ALL MEASUREMENT RESULTS: Intervals: Rate: 75 HI: 110 QRSD: 76 QT: 360 QTc: 402 [place]: P: 64 HI: 110 QRS: 78 T: -4 INTERPRETIVE STATEMENTS: Sinus rhythm with short HI Septal infarct, age undetermined T wave abnormality, consider inferior ischemia Abnormal ECG No previous ECG available for comparison Electronically Signed On 11-15-21 11:14:09 [employer] by Robert Barragan
== END 2021-11-14 21:22 | disposition home or self-care (01) ==
LOC: ER 15:34
DX: R07.9 Chest pain, unspecified (principal); F17.210 Nicotine dependence, cigarettes, uncomplicated
CPT/HCPCS: 36415; 71045; 80048; 80076; 83735; 83880; 84484; 85025; 85610; 86308; 93005; 96361; 96374; 99284; J7030

== ENCOUNTER 2022-02-24 15:37 | Emergency (ER) | payer SELFPAY ==
--- OUTSIDE RECORDS SUMMARY | 2022-02-24 15:42 | XMS REPORT | Continuity of Care Document ---
:1990 Author Organization [facility] t Address [address] [place] [address] Care Team Providers Name Role Phone Pcp, Does Not Have A Primary Care Physician Arley DARNELL Attending Clinician GILBERTO ADDISON Attending Clinician Unavailable Patel DACSOTA, B Attending Clinician Forrest DRUMMOND, C Attending Clinician Gilberto Addison MD Attending Clinician Hunter Mendoza MD Attending Clinician Therapy, Covid Infusion Attending Clinician Unavailable Braulio DRUMMOND, Emely Attending Clinician Emely RAMSEY Attending Clinician Unavailable Doctor Unassigned, Name Attending Clinician Unavailable HUNTER MENDOZA Admitting Clinician Unavailable Hunter Mendoza MD Admitting Clinician Problems Condition Condition Condition Status Onset Resolution Last Treating Co mments Source Name Details Category Date Date Treatment Clinician Date Lip lesion Lip lesion Disease Active U nivers 1-11 ity of 00:00: [address] Syphilis, Syphilis, Disease Active Uni vers secondary secondary -07 ity of 00:00: [address] Chronic Chronic Disease Active Univers hepatitis hepatitis -07 ity of B virus B virus 00:00: [place] infection infection [address] [place] [address] Acute Acute Disease Active Univers hyponatrem hyponatrem -07 it y of ia ia 00:00: [address] 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 Chronic Chronic Disease Active [facility] hepatitis hepatitis 11-18 ity of C without C without 00:00: [place] m[place] hepatic hepatic [facility] coma coma Branch Reactive Reactive Disease Active Unive rs cervical cervical 11-17 ity of lymphadeno [place]adeno [place] alla alla [facility] Allergies, Adverse Reactions, Alerts Allergy Allergy Status Severity Reaction(s) Onset Inactive Treating Comm ents Source Name Type Date Date Clinician NO KNOWN Drug Active Univers ALLERGIE Class ity of S [facility] Social History Social Habit Start Date Stop Date Quantity Comments Source Exposure to Not sure [facility] SARS-CoV-2 (event) [facility] Sex Assigned At [birth year] [facility] 00:00:00 00:00:00 [facility] Smoking Status Start Date Stop Date Source Unknown if ever smoked [facility] Medications Ordered Filled Start Stop Current Ordering Indication Dosage Frequency Signature Comments Components Source Medication Medication Date Date Medication? Clinician (SIG) Name Name bisacodyL No 10mg 10 mg, Unive rs (DULCOLAX) 11-22 Rectal, ity o f suppository 20:45: 20:55 [place]CE[place] 1 [place] 10 [place] 00 :00 dose, On Medical [facility] 11/22/21 at 1445, Routine enoxaparin Yes 40mg 40 mg, Unive rs (LOVENOX) 11-22 Subcutaneo ity of injection 15:00: [place], [place]ILY, [place] 40 mg 00 First dose Medical on [facility] 11/22/21 at 0900, Until Discontinu ed, Routine acetaminoph 2021- No [id number] 1{tbl} Take 1 U nivers en-codeine 11-22 tablet by ity of 300-30 mg 00:00: 05:59 mouth [place] tablet 00 :00 every 8 Medical (eight) Branch hours as needed for Pain (scale 7-10) for up to 7 days. Indication s: acute pain acetaminoph 2021- No 4647 1{tbl} Take 1 U nivers en-codeine 11-22 tablet by ity of 300-30 mg 00:00: 05:59 mouth [place] tablet 00 :00 every 8 Medical (eight) Branch hours as needed for Pain (scale 7-10) for up to 7 days. Indication s: acute pain acyclovir 2021- No [id number] 400mg Take 2 Univers 200 mg 11-22 capsules ity of capsule 00:00: 05:59 by mouth [place] 00 :00 every 8 Medical (eight) Branch hours for 5 days. acyclovir 2021- No [id number] 400mg Take 2 Univers 200 mg 11-22 capsules ity of capsule 00:00: 05:59 by mouth [place] 00 :00 every 8 Medical (eight) Branch hours for 5 days. acyclovir 2021- No [id number] 400mg Take 2 Univers 200 mg 11-22 capsules ity of capsule 00:00: 00:00 by mouth [place] 00 :00 every 8 Medical (eight) Branch hours for 7 days. acetaminoph 2021-0 Yes 650mg 650 mg, Un nhi en 1-10 Oral, ity of (TYLENOL) 22:01: Q8HPRN, [place] tablet 650 04 Starting Medic al mg on Sun11/21/21 at 1601, Until Discontinu ed, Routine, Pain (scale 1-3) HYDROcodone 2021-0 Yes 1{tbl} 1 tablet, Univers -acetaminop 1-10 Oral, ity of hen (NORCO 22:00: Q6HPRN, [place] [facility] 5) 5-325 mg 00 Starting Medi jonathan tablet 1 on Sun tablet 11/21/21 at 1600, Until Discontinu ed, Routine, Pain (scale 4-6), Pain (scale 7-10) morpHINE 2021-0 Yes 4mg 4 mg, Slow Uni vers injection 4 1-10 IV Push, ity of mg 22:00: Q4HPRN, [place] 00 Starting Medical on Sun11/21/21 at 1600, Until Discontinu ed, Routine, can give w norco if neccesary for breakthrou gh pain glycerin/mi 2021-0 Yes 225mL 225 mL, Un nhi neral oil 1-10 Rectal, ity of (AGLO 21:58: PRN, [place] ENEMA) 57 Starting Medical (COMPOUNDED on Sun ) Enem 225 11/21/21 at mL 1558, Until Discontinu ed, Routine, Constipati on unresolved by oral medication s magnesium Yes 30mL 30 mL, Univer s hydroxide -10 Oral, BID, ity of (MILK OF 02:00: First dose [place] as MAGNESIA) 00 on [place] [facility] 400 mg/5 mL 11/20/21 at Bra [facility] suspension 2000, 30 mL Until Discontinu ed, Routine bisacodyL 2021- No 10mg 10 mg, Unive rs (DULCOLAX) 11-21- Oral, ity of tablet 10 00:45: 14:11 DAILY, 2 [place] as mg 00 :00 doses, Medical First dose Branch on [place] 11/20/21 at 1845, Last dose on [facility] 11/21/21 at 0900, Routine acyclovir Yes 400mg 400 mg, Univ ers (ZOVIRAX) 09 Oral, Q8H, ity of capsule 400 12:00: First dose [place] mg 00 on [facility] 11/20/21 at Branch 0600, Until Discontinu ed, VANGIE doxycycline No 100mg 100 mg, U nivers hyclate 11-2011 Oral, ity of (Vibramycin 12:00: 08:08 Q12HA2, [place] capsule 00 :27 First dose Medi jonathan 100 mg on [facility] 11/20/21 at 0600, Until Discontinu ed, VANGIE
Re ason for Anti-Infec tive: Documented Infection< br>Documen janey Infection Site: Other
O ther site: syphillis< br>Duratio n of Therapy: 10 days nicotine Yes 1{patch 1 Patch, Un nhi (NICODERM) -09 } Topical, ity o f 21 mg/24 hr 01:00: Administer [place] patch 1 00 over 24 Medical Patch Hours, Branch Q24H, First dose on 11/19/21 at 1900, Until Discontinu ed, Routine penicillin 2021-2021- No 310 3,000,000 U nivers GK 3 11-19 01-09 Units (3 ity of million 03:30: 05:37 Million [place] units in NS 00 :29 Units), IV Me dical 50 mL IV Piggyback, Branc h infusion Q4H ABX, (CNR) First dose on 11/18/21 at 2130, Until Discontinu ed, Administer over 60 Minutes, 50 mL
Reas on for Anti-Infec tive: Empiric Therapy for Suspected Infection< br>Empiric Therapy Site: Blood
D uration of therapy: 7 days bisacodyL No 5mg 5 mg, Univer s (DULCOLAX) 11-19 Oral, ity of tablet 5 mg 02:45: 13:52 DAILY, 2 [place] 00 :00 doses, Medical First dose Branch on Sun11/18/21 at 2045, Last dose on 11/19/21 at 0900, Routine lactated No 1000mL at 100 Univ ers ringers IV 11-19-09 mL/hr, ity of infusion 00:30: 00:29 1,000 mL, [place] as 1,000 mL 00 :00 IV Medical Infusion, Branch CONTINUOUS , Starting on Sun11/18/21 at 1830, Until 11/19/21 at 1829, VANGIE hydrOXYzine Yes 25mg 25 mg, Univ ers (ATARAX) 11-18 Oral, ity of tablet 25 23:27: Q6HPRN, [place] mg 50 Starting Medical on Fri Branch 11/18/21 at 1727, Until Discontinu ed, Routine, Anxiety FENTanyl PF No 50ug 50 mcg, Un nhi (SUBLIMAZE 11-18 Slow IV ity o f (PF)) 23:20: 00:14 Push, [place] injection 00 :00 ONCE, 1 Medical 50 mcg dose, On Branch 11/18/21 at 1730, Routine piperacilli 2021- No 4.5g 4.5 g, IV Univers n-tazobacta 11-18 Piggyback, i ty of m (ZOSYN) 22:45: 23:03 Q6H ABX, [place] 4.5 g in 00 :49 First dose Medic al NaCl 0.9% on Fri Branch (NS) 100 mL 11/18/21 at MINI-BAG 1645, Until Discontinu ed, Administer over 30 Minutes, 100 mL
Reas on for Anti-Infec tive: Documented Infection< br>Documen janey Infection Site: Abdominal< br>Duratio n of Therapy: 7 days sennosides- Yes 1{tbl} 1 tablet, Univers docusate 11-18 Oral, ity of sodium 21:45: DAILY, [place] (SENOKOT-S) 00 First dose Me dical 8.6-50 mg on Sun per tablet 11/18/21 at 1 tablet 1545, Until Discontinu ed, Routine polyethylen Yes 17g 17 g, Unive rs e glycol 07 Oral, BID, ity o f 3350 powder 21:45: First dose [place] [address] [facility] 11/18/21 at Branch 1545, Until Discontinu ed, Routine morpHINE 2021- No 6mg 6 mg, Slow Un nhi injection 6 11-1810 IV Push, ity of mg 21:31: 21:58 Q3HPRN, [place] 05 :01 Starting Medical on Sun Branch 11/18/21 at 1531, Until 11/21/21 at 1558, Routine, Pain (scale 4-6), Pain (scale 7-10), can give w norco if neccesary for breakthrou gh pain ondansetron Yes 4mg 4 mg, Slow Univers (ZOFRAN 11-18 IV Push, ity of (PF)) 21:30: Q6HPRN, [place] injection 4 02 Starting Medi jonathan mg on Sun Branch 11/18/21 at 1530, Until Discontinu ed, Routine, Nausea and Vomiting (N/V) morpHINE 2021- No PRN, Univers injection 11-18 Starting ity o f 19:16: 21:29 on Sun [place] 10 :46 11/18/21 at Medical 1316, Branch Until Sun11/18/21 at 1529, Routine tc 2021- No [id number] [facility] 10 [facility] 99m-mebrofe 11-18 millicurie i ty of amadeo 16:15: 17:45 , [place] injection 00 :00 Intravenou Medi jonathan 10 s, ONCE, 1 Branch millicurie dose, On 11/18/21 at 1015, Routine penicillin 2021- No 2.410 2.4 Unive rs g 11-18 Million ity of benzathine 06:15: 08:32 Units, [place] (BICILLIN 00 :00 Intramuscu Medi jonathan L-A) lar, ONCE, Branch injection 1 dose, On 2.4 Million 11/18/21 Units at 0015, VANGIE
Re ason for Anti-Infec tive: Documented Infection< br>Documen janey Infection Site: Blood
D uration of Therapy: Other (see Comments) HYDROcodone 2021- No 1{tbl} 1 tablet, Univers -acetaminop 11-18 Oral, Q6H, i ty of hen (NORCO 02:45: 21:58 First dose [place] 5) 5-325 mg 00 :01 on [facility] Medica l tablet 1 11/17/21 at [place] tablet 2044, Until Discontinu ed, Routine morpHINE 2021- No 5mg 5 mg, Slow Un hni injection 5 11-18 IV Push, ity of mg 02:32: 21:31 Q3HPRN, [place] 20 :17 Starting Medical on [place] Branch 11/17/21 at 203, Until Sun11/18/21 at 1531, Routine, Pain (scale 4-6), Pain (scale 7-10), can give w norco if neccesary for breakthrou gh pain ibuprofen Yes 600mg 600 mg, Univ ers (IBU) 11-18 Oral, ity of tablet 600 02:30: Q8HPRN, [place] mg 45 Starting Medical on [place] 11/17/21 at 2030, Until Discontinu ed, Routine, Temp > 38.5 C lidocaine 2021- No 10mL 10 mL, Unive rs PF 2% 11-18 Subcutaneo ity of (XYLOCAINE- 01:15: 01:15 us, ONCE [place] MPF) 00 :00 NOW, 1 Medical injection dose, On Branch 10 mL [place] 11/17/21 at 1915, Routine morpHINE 2021- No 4mg 4 mg, Slow Un nhi injection 4 11-1707 IV Push, ity of mg 18:47: 02:31 Q4HPRN, [place] 23 :29 Starting Medical on [place] Branch 11/17/21 at 1247, Until [facility] 11/17/21 at 2031, Routine, Pain (scale 7-10) acetaminoph 2021- No 650mg 650 mg, U nivers en 11-17 Oral, ity of (TYLENOL) 18:47: 22:01 Q8HPRN, [place] tablet 650 00 :15 Starting Medic al mg on [place] Branch 11/17/21 at 1247, Until [facility] 11/21/21 at 1601, Routine, Pain (scale 1-3), Temp > 38.5 C morpHINE 2021- No 2mg 2 mg, Slow Un nhi injection 2 11-17 IV Push, ity of mg 14:53: 18:47 Q4HPRN, [address] [place] [address] 08 :58 doses, Medical Starting Branch on [place] 11/17/21 at 0853, Until [facility] 11/17/21 at 1247, Routine, Pain (scale 7-10) heparin 2021- No 5000U 5,000 Univers (porcine) 11-17 Units, ity of injection 14:00: 21:59 Subcutaneo [place] 5,000 Units 00 :38 us, Q12H, Med ical First dose Branch on [place] 11/17/21 at 0800, Until Discontinu ed, Routine ibuprofen 2021- No 400mg 400 mg, Uni vers (IBU) 11-17 Oral, ity of tablet 400 10:14: 18:47 Q6HPRN, [place] mg 06 :58 Starting Medical on [place] Branch 11/17/21 at 0414, Until [facility] 11/17/21 at 1247, Routine, Pain (scale 1-3), Temp > 38.5 C ampicillin- 2021- No 3g 3 g, IV Un nhi sulbactam 11-17 Piggyback, ity of (UNASYN) 3 09:30: 04:58 Q6H ABX, [place] g in NaCl 00 :28 First dose Medi jonathan 0.9% (NS) on [place] 100 mL 11/17/21 at MINI-BAG 0330, Until Discontinu ed, Administer over 30 Minutes, 100 mL
Reas on for Anti-Infec tive: Empiric Therapy for Suspected Infection< br>Empiric Therapy Site: HEENT
D uration of therapy: 7 days traMADoL No 50mg 50 mg, Univer s (ULTRAM) 11-17 Oral, ity of tablet 50 08:25: 02:31 Q8HPRN, [place] mg 50 :29 Starting Medical on [place] Branch 11/17/21 at 0225, Until [place] 11/17/21 at 2031, Routine, Pain (scale 4-6) ibuprofen 2021- No 600mg 600 mg, Uni vers (IBU) 11-17 Oral, ity of tablet 600 04:00: 02:53 ONCE, 1 [place] mg 00 :00 dose, On Medical 11/16/21 Branch at 2200, VANGIE vancomycin 2021- No 1000mg 1,000 mg, Univers (VANCOCIN) 11-17 IV ity of 1,000 mg in 03:00: 03:53 PiggyArbon, [place] NaCl 0.9% 00 :00 ONCE, 1 Medical (NS) 250 mL dose, On [facility] VIAL-MATE 11/16/21 IV at 2100, piggyback Administer over 60 Minutes, 250 mL
Reas on for Anti-Infec tive: Empiric Therapy for Suspected Infection< br>Empiric Therapy Site: Blood
D uration of therapy: 72 hours cefTRIAXone No 1000mg 1,000 mg, Univers (ROCEPHIN) 11-17 IV ity of 1,000 mg in 03:00: 03:11 [place], [place] NaCl 0.9% 00 :00 ONCE, 1 Medical (NS) 50 mL dose, On [facility] h MINI-BAG 11/16/21 at 2100, Administer over 30 Minutes, 50 mL
R lynette for Anti-Infec tive: Empiric Therapy for Suspected Infection< br>Empiric Therapy Site: Blood
D uration of therapy: 72 hours iopamidol 2021- No [id number] 100mL 100 mL, Univers (ISOVUE 11-17 Intravenou ity o f 370-500 mL) 02:17: 02:18 s, ONCE, 1 [place] injection 00 :00 dose, On Medica l 100 mL Sun11/16/21 Branch at 2030, Routine morpHINE 2021- No 4mg 4 mg, Slow Un nhi injection 4 11-17 IV Push, ity of mg 02:15: 01:38 ONCE, 1 [place] 00 :00 dose, On Medical Sun11/16/21 Branch at 2015, STAT NaCl 0.9% 2021- No 1000mL at 999 Uni vers (NS) IV 11-17 mL/hr, IV ity of infusion 01:15: 01:46 Infusion, [place] as 1,000 mL 00 :00 ONCE, 1 Medical dose, On Branch Sun11/16/21 at 1915, Routine NaCl 0.9% 2021- No 1000mL at 999 Uni vers (NS) bolus 11-1606 mL/hr, ity of infusion 23:45: 00:14 1,000 mL, [place] as 1,000 mL 00 :00 IV Medical Infusion, Branch ONCE, 1 dose, On Sun11/16/21 at 1745, VANGIE ketorolac 2021- No 30mg 30 mg, Unive rs (TORADOL) 11-16 Slow IV ity of injection 23:26: 23:27 Push, [place] 30 mg 00 :00 ONCE, 1 Medical dose, On Branch Sun11/16/21 at 1730, VANGIE casirivimab 2020-11- No [id number] 1200mg 1,200 mg, Univers -imdevimab 12-28 Subcutaneo it y of (REGEN-COV 23:45: 22:33 us, ONCE, [place] (EUA)) 00 :00 1 dose, On Medical injection [place] Branch (CO-FORMULA 10/27/21 TION) 1,200 at 1745, mg Routine Vital Signs Vital Name Observation Time Observation Value Comments Source Systolic blood 2021-11-22 18:00:00 113 mm[Hg] Univer sity of pressure [facility] Diastolic blood 2021-11-22 18:00:00 69 mm[Hg] Unive rsity of pressure [facility] Heart rate 2021-11-22 18:00:00 83 /min Universi ty of [facility] Body temperature 2021-11-22 18:00:00 35.83 Christen Univ ersity of [facility] Oxygen saturation in 2021-11-22 18:00:00 99 /min University of Arterial blood by [place] [facility] jonathan Pulse oximetry Branch Respiratory rate 2021-11-22 09:55:00 16 /min Univ ersity of [facility] Body height 2021-11-17 07:45:00 170.2 cm Universi ty of [facility] Body weight 2021-11-17 07:45:00 65.318 kg Universi ty of [facility] BMI 2021-11-17 07:45:00 22.55 kg/m2 Universi ty of [facility] Systolic blood 2021-10-27 23:18:00 131 mm[Hg] Univer sity of pressure [facility] Diastolic blood 2021-10-27 23:18:00 77 mm[Hg] Unive rsity of pressure [facility] Heart rate 2021-10-27 23:18:00 89 /min Universi ty of [facility] Body temperature 2021-10-27 23:18:00 37.22 Christen Univ ersity of [facility] Respiratory rate 2021-10-27 23:18:00 20 /min Univ ersity of [facility] Oxygen saturation in 2021-10-27 23:18:00 99 /min University of Arterial blood by [place] [facility] jonathan Pulse oximetry Branch Body height 2021-10-27 22:30:00 170.2 cm Universi ty of [facility] Body weight 2021-10-27 22:30:00 61.689 kg Universi ty of [facility] BMI 2021-10-27 22:30:00 21.30 kg/m2 Universi ty of [facility] Procedures Procedure Date / Time Performing Clinician Source Performed XR KUB 2021-11-22 08:53:00 Lisa Fofana o [facility] GC & CHLAMYDIA AMPLIFIED 2021-11-20 16:21:00 Lisa Fofana [facility] GC & CHLAMYDIA AMPLIFIED 2021-11-20 16:19:00 FofanaLisa [facility] ASSAY [facility] COMP. METABOLIC PANEL 2021-11-20 12:36:00 Sheaantonio Bita [facility] ([id number]) Medical [place] GC & CHLAMYDIA AMPLIFIED 2021-11-20 07:24:00 FofanaRaymondah [facility] HSV 1&2, VZV NAAT 2021-11-20 07:24:00 Lisa Fofana [facility] US ABDOMEN LIMITED 2021-11-19 15:45:14 [facility] COMP. METABOLIC PANEL 2021-11-19 11:36:00 [facility] ([id number] CBC WITH DIFF 2021-11-19 11:36:00 [facility] HEPATITIS B VIRUS (HBV) 2021-11-19 11:36:00 [facility] BY QUANTITATIVE NAAT [facility] XR ABDOMEN 2 VW 2021-11-19 01:05:00 [facility] HB ECG ROUTINE & RHYTHM 2021-11-18 23:18:53 [facility] STRIP [facility] NM HEPATOBILIARY W 2021-11-18 20:00:00 [facility] INTERVENTION [facility] FERRITIN SERUM 2021-11-18 11:07:00 [facility] IRON 2021-11-18 11:07:00 [facility] BILI UNCONJUGATED/BILI 2021-11-18 11:07:00 [facility] CONJUG [facility] COMP. METABOLIC PANEL 2021-11-18 11:07:00 [facility] ([id number] CBC WITH DIFF 2021-11-18 11:07:00 Shun [place] o [place] [facility] [place] [facility] CEREBROSPINAL FLUID 2021-11-18 03:31:00 Junior Silva [facility] PROTEIN [facility] CEREBROSPINAL FLUID 2021-11-18 03:31:00 Junior Silva [facility] GLUCOSE [facility] BODY FLUID DIRECT COUNT 2021-11-18 03:31:00 Junior Silva [facility] CSF/OFFICE ADMINISTRATION SHUNT CULTURE 2021-11-18 03:31:00 Junior Silva [facility] FUNGUS (ROUTINE) CULTURE 2021-11-18 03:31:00 [facility] 2021-11-18 03:31:00 Junior Silva [facility] TRANSTHORACIC ECHO (TTE) 2021-11-17 21:37:[facility] BY [facility] 2021-11-17 15:25:00 Junior Silva [facility] GALV ONLY - SYPHILIS 2021-11-17 10:00:00 Junior Silva [facility] IGG/IGM [facility] HEPATITIS B SURFACE 2021-11-17 10:00:00 Junior Silva [facility] ANTIBODY [facility] RPR (QUANTITATIVE) 2021-11-17 10:00:00 Junior Silva [facility] MRSA / MSSA SCREEN BY 2021-11-17 09:25:00 Junior Silva [facility] PCR, NARES [facility] THROAT CULTURE 2021-11-17 09:16:00 Junior Silva [facility] HAPTOGLOBIN, SERUM 2021-11-17 09:13:00 [facility] C-REACTIVE PROTEIN 2021-11-17 09:13:00 Junior Silva [facility] HEPATIC FUNCTION PANEL 2021-11-17 09:13:00 Junior Silva [facility] ([id number]) (ALB,T.PRO,BILI [facility] T,BU/BC,ALT,AST,ALK PHOS) BASIC METABOLIC PANEL 2021-11-17 09:13:00 Junior Silva [facility] (NA, K, CL, CO2, GLUCOSE, Medica l Branch BUN, CREATININE, CA) SEDIMENTATION RATE 2021-11-17 09:13:00 Junior Silva [facility] DIFF CONSULT 2021-11-17 09:13:00 [facility] CBC WITH DIFF 2021-11-17 09:13:00 [facility] D-DIMER 2021-11-17 09:13:00 Junior Silva [facility] HEPATITIS B SURFACE 2021-11-17 09:13:00 Junior Silva [facility] ANTIGEN [facility] HCV ANTIBODY 2021-11-17 09:13:00 [facility] HEPATITIS A VIRUS 2021-11-17 09:13:00 Junior Silva [facility] ANTIBODY IGM [facility] HEPATITIS B CORE ANTIBODY 2021-11-17 09:13:00 Junior Silva [facility] IGM [facility] HEPATITIS C VIRUS (HCV) 2021-11-17 09:13:00 Junior Silva [facility] BY QUANTITATIVE NAAT [facility] QUANTIFERON-TB ASSAY 2021-11-17 09:13:00 Junior Silva [facility] TYPHUS FEVER AB, IGM 2021-11-17 09:13:00 Junior Silva [facility] URINE DRUG (IMMUNOASSAY) 2021-11-17 09:00:00 Junior Silva [facility] - COMPREHENSIVE DRUG [facility] SCREEN URINE DRUG (LCMSMS) - 2021-11-17 09:00:00 Junior Silva [facility] SYNTHETIC OPIATES PANEL Medical Branch CT ABDOMEN PELVIS W 2021-11-17 02:22:48 Javan Sweeney [facility] CONTRAST [facility] CT SOFT TISSUE NECK W 2021-11-17 02:22:48 Javan Sweeney [facility] CONTRAST [facility] CT CHEST PULMONARY 2021-11-17 02:22:48 Javan Sweeney [facility] ANGIOGRAM [facility] US GALL BLADDER 2021-11-17 01:24:40 Javan Sweeney [facility] XR CHEST 1 VW 2021-11-17 00:32:07 Javan Sweeney [facility] URINALYSIS 2021-11-16 23:30:00 Javan Sweeney [facility] URINE CULTURE 2021-11-16 23:30:00 Javan Sweeney [facility] HB ECG ROUTINE & RHYTHM 2021-11-16 23:28:50 Javan Sweeney [facility] ASSIGNMENT OF BENEFITS 2021-11-16 23:13:59 Doctor Unassigned, Un [facility] [place] [facility] LACTIC ACID WHOLE BLOOD 2021-11-16 23:08:00 Javan Sweeney [facility] BLOOD CULTURE SCREEN 2021-11-16 23:07:00 [facility] CREATINE KINASE 2021-11-16 23:07:00 Junior Silva [facility] LIPASE 2021-11-16 23:07:00 Dwayne Johns [place] o f [facility] TROPONIN I 2021-11-16 23:07:00 Javan Sweeney [facility] THYROID STIMULATING 2021-11-16 23:07:00 Junior Silva [facility] HORMONE [facility] COMP. METABOLIC PANEL 2021-11-16 23:07:00 [facility] ([id number] Branch ACETAMINOPHEN 2021-11-16 23:07:00 Junior Silva [facility] ETHANOL 2021-11-16 23:07:00 Junior Silva [facility] CBC WITH DIFF 2021-11-16 23:07:00 Javan Sweeney [facility] EBV-MONONUCLEOSIS SCREEN 2021-11-16 23:07:00 Dwayne Johns [facility] N-TERMINAL PRO-BNP 2021-11-16 23:07:00 Junior Silva [facility] HIV 1/2 AG-AB WITH REFLEX 2021-11-16 23:07:00 Junior Silva [facility] [place] [facility] RAPID INFLUENZA A/B 2021-11-16 23:06:00 Javan Sweeney [facility] COVID-19 (ID NOW RAPID 2021-11-16 23:06:00 Javan Sweeney [facility] TESTING) Medical [place] LAB ONLY COVID 2021-11-16 23:06:00 Javan Sweeney [facility] INTERPRETATION [facility] CONSENT/REFUSAL FOR 2021-11-16 22:25:40 Doctor Unassigned, [facility] DIAGNOSIS AND TREATMENT [place] [facility] NOTICE OF PRIVACY 2021-11-16 22:24:32 Doctor Unassigned, [facility] PRACTICES [place] [facility] [id number] CONSENT 2021-10-27 06:01:00 Doctor Unassigned, [facility] [place] [facility] Encounters Start End Encounter Admission Attending Care Care Encounter Source Date/Time Date/Time Type Type Clinicians Facility Department ID 2021-11-23 2021-11-23 Transition ZENON Tubbs 1.2.840.114 [id number] Univers 00:00:00 00:00:00 of Care Angelika LAMAS 350.1.13.10 [facility] 4.2.7.2.686 [facility] [id number] [place] [address] Branch 2021-11-16 2021-11-22 Inpatient X NICK ADDISON [facility] IVA [id number] Univers 16:45:00 16:48:00 [facility] 2021-11-16 2021-11-22 [facility] Javan Sweeney 1.2.840. 114 [id number] Univers 16:45:00 16:48:00 Encounter Gelacio Clayton [facility]1.1 3.10 [facility] 4.2.7.2.686 Lencho De Leon [phone] Medical 096 Branch 2021-10-27 2021-10-27 Nurse Therapy, Adc Covid Infusion [facility] [id number] Univers 16:00:00 17:00:00 Visit Archie Ramsey 350.1.13.10 [place] [id number] [place] [id number] Branch 2021-10-27 2021-10-27 Outpatient R BRAULIO [facility] [id number] Univers 16:00:00 16:00:00 ARCHIE ity of [facility] 2021-10-27 2021-10-27 Orders Doctor LALO [id number] Univers 00:00:00 00:00:00 Only Unassigned, SHAHRIAR 350.1.13.10 ity of [place] [facility] 4.2.7.2.686 Brendon as [id number] [address] Results Test Description Test Time Test Comments Results Result Comments Source Blood Culture - Peripheral # 1 2021-11-22 00:01:47 Test Item Value Reference Range Interpretation Comme nts Blood Culture-Aerobic (test No organisms isolated No growth Previous preliminary code = 65843-8) verified res ult was Culture In Prog ress on 11/16/2021 at 210 1 CSTPrevious pre liminary verified result was No growth at 24 ho urs on 11/17/2021 at 180 1 CSTPrevious pre liminary verified result was No growth at 48 ho urs on 11/18/2021 at 180 1 CSTPrevious pre liminary verified result was No growth at 72 ho urs on 11/19/2021 at 180 1 DATA CONSULTANT Blood Culture-Anaerobic No organisms isolated No growth Previous preliminary (test code = 88018-3) verifi ed result was Culture In Prog ress on 11/16/2021 at 210 1 CSTPrevious pre liminary verified result was No growth at 24 ho urs on 11/17/2021 at 180 1 CSTPrevious pre liminary verified result was No growth at 48 ho urs on 11/18/2021 at 180 1 CSTPrevious pre liminary verified result was No growth at 72 ho urs on 11/19/2021 at 180 1 DATA CONSULTANT Lab Interpretation (test Normal code = 10464-4) [facility] # [id number] 00:01:47 Test Item Value Reference Range Interpretation Comments Blood Culture-Aerobic No organisms No growth Previo us (test code = 06383-2) isolated prelim inary verified result was Culture In Progress on 11/16/2021 at 210 1 CSTPrevious preliminary verified result was No growth a t 24 hours on 11/17/2021 at 180 1 CSTPrevious preliminary verified result was No growth a t 48 hours on 11/18/2021 at 180 1 CSTPrevious preliminary verified result was No growth a t 72 hours on 11/19/2021 at 180 1 DATA CONSULTANT Blood No organisms No growth Previous Culture-Anaerobic isolated preliminar y (test code = 65386-7) verifi ed result was Culture In Progress on 11/16/2021 at 210 1 CSTPrevious preliminary verified result was No growth a t 24 hours on 11/17/2021 at 180 1 CSTPrevious preliminary verified result was No growth a t 48 hours on 11/18/2021 at 180 1 CSTPrevious preliminary verified result was No growth a t 72 hours on 11/19/2021 at 180 1 DATA CONSULTANT Lab Interpretation Normal (test code = 73234-4) [facility] (HCV) BY QUANTITATIVE NAAT 2021-11-20 21:17:20 Test Item Value Reference Range Interpretation Comments HCV Quantitative NAAT <1.00 Not Detected log - log IU/mL (test code IU/mL = 88068-6) HCV Quantitative NAAT <10 Not Detected - IU/mL (test code = IU/mL 20294-1) HCV Quantitative Detected, not Not Detected A Interpretation (test Quantifiable code = 6819535839) STAR (test code = STAR) The Aptima HCV Quant Dx assay is an FDA-approved real-time emergency medical service coordinator-mediated amplification (TMA) test used for both detection and quantitation of hepatitis C virus (HCV) RNA in human serum and plasma from HCV-infected individuals. ?It is intended for use as an aid in the diagnosis of active HCV infection and the management of HCV-infected patients undergoing HCV antiviral drug therapy. ?It is not approved for use as a screening test for the presence of HCV RNA in blood or blood products. The quantitative range of this assay is 1.00 - 8.00 log IU/mL or 10 - 100,000,000 IU/mL. An interpretation of "Not Detected" does not rule out the presence of inhibitors in the patient specimen or HCV RNA concentration below the level of detection of the test. ?Care should be taken when interpreting any single viral load determination. Detected, not Quantifiable: HCV RNA detected, but at a level below 10 IU/mL (1.0 log IU/mL). ?HCV RNA concentration is below the lower limit of quantitation of the assay. Indeterminate: Error indicated in the generation of the result. ?Please submit a new specimen for repeat testing if clinically indicated. Lab Interpretation Abnormal (test code = 68131-5) [facility] Alice[facility]ANTIFERON-TB [id number] 19:50:52 Test Item Value Reference Range Interpretation Comments Nil (test code = IU/mL 37580-0) TB1 minus Nil (test IU/mL code = 87504-2) TB2 minus Nil (test IU/mL code = 6870724234) Mitogen minus Nil IU/mL (test code = 71693-0) QFT Gold Plus Negative Negative Result (test code = 18343-2) STAR (test code = The QuantiFERON? TB Gold STAR) Plus (in Tube) assay is intended for use as an aid in diagnosis of TB infection. A qualitative result (i.e., Negative, Positive, or Indeterminate) is based on interpretation of the four values, Nil, TB1 minus Nil, TB2 minus Nil, and Mitogen minus Nil. ?The Nil value represents nonspecific reactivity produced by the patient specimen. ?The TB1 minus Nil value indicates the interferon-gamma response of CD4+ T lymphocytes, specifically stimulated by the TB1 antigens. ?The TB2 minus Nil value indicates interferon-gamma response of both CD4+ and CD8+ T lymphocytes, stimulated by TB2 antigens. ?The Mitogen minus Nil value serves as the positive control, demonstrating the successful responsiveness of the T lymphocytes in patient specimen. A negative result suggests that M. tuberculosis infection is unlikely. ?However, in patients with high suspicion of exposure, a negative test should be repeated on a new sample. A positive result indicates an interferon-gamma response to M. tuberculosis antigens, suggesting infection with M. tuberculosis. Positive results in patients at low-risk for tuberculosis should be interpreted with caution and repeat testing on a new sample is advised. ?If repeat testing is positive, treatment may be indicated. ?Consult Infectious Disease Services for further recommendations. False positive results may occur in patients with prior infection with M. marinum, M. szulgai, or M. kansasii. For an indeterminate result, the likelihood of determining infection with M. tuberculosis cannot be determined. ?If clinically indicated, repeat testing on a new sample is advised. For further information, refer to http://www.cdc.gov/mmwr/pd f/rr/wn9958.pdf and https://doi.org/10.1093/ci d/rip124. [facility] Alice[facility]. METABOLIC PANEL ([id number])2021-11-20 13:01:28 Test Item Value Reference Range Interpretation Comments NA (test code = 135 mmol/L 135-145 7803273735) K (test code = 4.4 mmol/L 3.5-5.0 3381569004) CL (test code = 102 mmol/L 98-108 5906723955) CO2 TOTAL (test code = 29 mmol/L 23-31 5659788073) AGAP (test code = 2-16 0093366760) BUN (test code = 10 mg/dL 7-23 0496091026) GLUCOSE (test code = 86 mg/dL 70-110 1653941168) CREATININE (test code = 0.67 mg/dL 0.60-1.25 4023168119) TOTAL BILI (test code = 2.1 mg/dL 0.1-1.1 H 9408609568) CALCIUM (test code = 8.2 mg/dL 8.6-10.6 L 6717476657) T PROTEIN (test code = 7.4 g/dL 6.3-8.2 7207025646) ALBUMIN (test code = 3.2 g/dL 3.5-5.0 L 8755550525) ALK PHOS (test code = 443 U/L 34-122 H 9283426046) ALTv (test code = 120 U/L 5-50 H 1742-6) AST(SGOT) (test code = 107 U/L 13-40 H 0574844086) eGFR (test code = mL/min/1.73m2 1163306462) STAR (test code = STAR) Association of Glomerular Filtration Rate (GFR) and Staging of Kidney Disease* + --+ --+ ------+| GFR (mL/min/1.73 m2) ?| With Kidney Damage ?| ?Without Kidney Damage+ --------+ --------+ +| ?>90 ?| ?Stage one ?| ? Normal ?+ ---+ ---+ -------+| ?60-89 ?| ?Stage two ?| ? Decreased GFR ? + --+ --+ ------+| ?30-59 ?| ?Stage three ?| ? Stage three ? + --+ --+ ------+| ?15-29 ?| ?Stage four ? | ? Stage four ?+ ---+ ---+ -------+| ?<15 (or dialysis) ? ?| ?Stage five ? | ? Stage five ?+ ---+ ---+ -------+ *Each stage assumes the associated GFR level has been in effect for at least three months. ?Stages 1 to 5, with or without kidney disease, indicate chronic kidney disease. Notes: Determination of stages one and two (with eGFR >59mL/min/1.73 m2) requires estimation of kidney damage for at least three months as defined by structural or functional abnormalities of the kidney, manifested by either:Pathological abnormalities or Markers of kidney damage (including abnormalities in the composition of the blood or urine or abnormalities in imaging tests). Lab Interpretation Abnormal (test code = 42880-2) [facility] Alice[facility]phus Fever Ab, [id number] 04:58:33 Test Item Value Reference Range Interpretation Comments Typhus Fever Ab, IgM <1:64 See_Comment INTERPR ETIVE INFORMATION: (test code = 5325-6) Typhus Fever Antibody, IgM ?Less than 1:64 ...... Negative-No sig nificant level of ?IgM antibody detected. ?1:64 or venturae r ..... Positive-Presen ce of IgM antibody ?detected, wh ich may indicate a ?current or recent infection; ?however, l ow levels of IgM ?antibodies may occasionally persist ?for more tiffanie n 12 months ?post-infection . Antibody reactivity to R ickettsia typhi antigen s hould be considered grou p-reactive for the Typhus Fever group, which includes Rickettsia prowazekii. Se roconversion between acute a nd convalescent se ra is considered stro ng evidence of recent infec tion. The best evidence i s a significant tom nge (fourfold difference in t iter) on two appropriately t imed specimens, wher e both tests are done in the same laboratory at t he same time. Acute-phase spe cimens are collected durin g the first week of illness and convalescent-ph ase samples are generally o btained 2-4 weeks after res olution of illness. Ideall y these samples should be tested simultaneously at the same facility. If th e sample submitted was c ollected during the actu e-phase of illness, submit a marked convalescent sa mple within 25 days for andrez red testing.Perform ed By: [employer] [place] [id number] Director: Yola Agustin MD [Automated mess age] The system which ge nerated this result transmit janey reference range: <1:64. T he reference range was not u sed to interpret this result as normal/abnormal . [facility] (HBV) BY QUANTITATIVE NAAT 2021-11-19 22:42:32 Test Item Value Reference Range Interpretation Comments HBV Quantitative NAAT Not Detected log - log IU/mL (test code IU/mL = 5850439082) HBV Quantitative NAAT Not Detected IU/ml (test code = IU/mL 64341-1) HBV Quantitative Detected Not Detected A Interpretation (test code = 95775-4) STAR (test code = STAR) The Aptima HBV Quant assay is an FDA-approved in vitro nucleic acid amplification test for the quantitation of hepatitis B virus (HBV) DNA in human plasma and serum. ?It is intended for use as an aid in the management of patients with chronic HBV infections undergoing HBV antiviral drug therapy. ?It is not approved for use as a screening test for the presence of HBV DNA in blood or blood products or as a diagnostic test to confirm the presence of HBV infection. The quantitative range of this assay is 1.00 - 9.00 log IU/mL or 10 - 1,000,000,000 IU/mL. An interpretation of "Not Detected" does not rule out the presence of inhibitors in the patient specimen or HBV DNA concentration below the level of detection of the test. ?Care should be taken when interpreting any single viral load determination. Detected, not Quantifiable: HBV DNA detected, but at a level below 10 IU/mL (1.0 log IU/mL). ?HBV DNA concentration is below the lower limit of quantitation of the assay. Indeterminate: Error indicated in the generation of the result. ?Please submit a new specimen for repeat testing if clinically indicated. Lab Interpretation Abnormal (test code = 35294-9) [facility] METABOLIC PANEL ([id number])2021-11-19 12:29:46 Test Item Value Reference Range Interpretation Comments NA (test code = 131 mmol/L 135-145 L 3542493725) K (test code = 4.1 mmol/L 3.5-5.0 2483737796) CL (test code = 98 mmol/L 98-108 0012135956) CO2 TOTAL (test code = 27 mmol/L 23-31 6151823960) AGAP (test code = 2-16 6094281481) BUN (test code = 9 mg/dL 7-23 3721668867) GLUCOSE (test code = 90 mg/dL 70-110 0664605394) CREATININE (test code = 0.79 mg/dL 0.60-1.25 0052073801) TOTAL BILI (test code = 2.3 mg/dL 0.1-1.1 H 0163139832) CALCIUM (test code = 8.1 mg/dL 8.6-10.6 L 9722491872) T PROTEIN (test code = 7.7 g/dL 6.3-8.2 4276827123) ALBUMIN (test code = 3.3 g/dL 3.5-5.0 L 3115988365) ALK PHOS (test code = 508 U/L 34-122 H 2723120041) ALTv (test code = 138 U/L 5-50 H 1742-6) AST(SGOT) (test code = 121 U/L 13-40 H 5280388557) eGFR (test code = mL/min/1.73m2 8343345500) STAR (test code = STAR) Association of Glomerular Filtration Rate (GFR) and Staging of Kidney Disease* + --+ --+ ------+| GFR (mL/min/1.73 m2) ?| With Kidney Damage ?| ?Without Kidney Damage+ --------+ --------+ +| ?>90 ?| ?Stage one ?| ? Normal ?+ ---+ ---+ -------+| ?60-89 ?| ?Stage two ?| ? Decreased GFR ? + --+ --+ ------+| ?30-59 ?| ?Stage three ?| ? Stage three ? + --+ --+ ------+| ?15-29 ?| ?Stage four ? | ? Stage four ?+ ---+ ---+ -------+| ?<15 (or dialysis) ? ?| ?Stage five ? | ? Stage five ?+ ---+ ---+ -------+ *Each stage assumes the associated GFR level has been in effect for at least three months. ?Stages 1 to 5, with or without kidney disease, indicate chronic kidney disease. Notes: Determination of stages one and two (with eGFR >59mL/min/1.73 m2) requires estimation of kidney damage for at least three months as defined by structural or functional abnormalities of the kidney, manifested by either:Pathological abnormalities or Markers of kidney damage (including abnormalities in the composition of the blood or urine or abnormalities in imaging tests). Lab Interpretation Abnormal (test code = 25750-4) [facility] WITH [id number] 12:04:01 Test Item Value Reference Range Interpretation Comments WBC (test code = See_Comment [Automated 2190-2) message] The sy stem which generated this result transmitted reference range : 4.20 - 10.70 10*3/?L. The reference range was not used to interpret this result as normal/abnormal . RBC (test code = See_Comment L [Automated 599-8) message] The sy stem which generated this result transmitted reference range : 4.26 - 5.52 10*6/?L. The reference range was not used to interpret this result as normal/abnormal . HGB (test code = 9.7 g/dL 12.2-16.4 L 718-7) HCT (test code = 29.2 % 38.4-49.3 L 4544-3) MCV (test code = 89.6 fL 81.7-95.6 787-2) MCH (test code = 29.8 pg 26.1-32.7 785-6) MCHC (test code = 33.2 g/dL 31.2-35.0 786-4) RDW-SD (test code = 55.9 fL 38.5-51.6 H 10779-4) RDW-CV (test code = 17.0 % 12.1-15.4 H 788-0) PLT (test code = See_Comment H [Automated 777-3) message] The sy stem which generated this result transmitted reference range : 150 - 328 10*3/ ?L. The reference r jalyn was not used to interpret this result as normal/abnormal . MPV (test code = 9.5 fL 9.8-13.0 L 37868-0) NRBC/100 WBC (test See_Comment [Automat ed code = 9984137343) message] The system which generated this result transmitted reference range : 0.0 - 10.0 /100 WBCs. The refer ence range was not u sed to interpret th is result as normal/abnormal . NRBC x10^3 (test code <0.01 See_Comment [Auto mated = 9446354409) message] The s ystem which generated this result transmitted reference range : 10*3/?L. The reference range was not used to interpret this result as normal/abnormal . GRAN MAT (NEUT) % 77.6 % (test code = 770-8) IMM GRAN % (test code 0.90 % = 2567174203) LYMPH % (test code = 9.7 % 736-9) MONO % (test code = 9.5 % 5905-5) EOS % (test code = 1.8 % 713-8) BASO % (test code = 0.5 % 706-2) GRAN MAT x10^3(ANC) 5.99 10*3/uL 1.99-6.95 (test code = 2932442290) IMM GRAN x10^3 (test 0.07 10*3/uL 0.00-0.06 H code = 6778970924) LYMPH x10^3 (test code 0.75 10*3/uL 1.09-3.23 L = 731-0) MONO x10^3 (test code 0.73 10*3/uL 0.36-1.02 = 742-7) EOS x10^3 (test code = 0.14 10*3/uL 0.06-0.53 711-2) BASO x10^3 (test code 0.04 10*3/uL 0.01-0.09 = 704-7) Lab Interpretation Abnormal (test code = 92755-1) [facility] BY [id number] 21:33:53 Test Item Value Reference Range Interpretation Comments Specimen Tested Plasma (test code = 5844511960) CMV PCR - log <2.5 See_Comment [Automated IU/mL (test message] The code = 84350-4) system which generated this result transmitted reference range : <2.5 log IU/mL. The reference range was not used to interpr et this result as normal/abnormal . CMV PCR - IU/mL <300 See_Comment [Automated (test code = message] The 33762-0) system which generated this result transmitted reference range : <300 IU/mL. The reference range was not used to interpret this result as normal/abnormal . CMV PCR - log <2.7 See_Comment [Automated copies/mL (test message] The code = 49733-8) system which generated this result transmitted reference range : <2.7 log copies/mL. The reference range was not used to interpret this result as normal/abnormal . CMV PCR - <516 See_Comment [Automated copies/mL (test message] The code = 40882-6) system which generated this result transmitted reference range : <516 copies/mL. The reference range was not used to interpr et this result as normal/abnormal . STAR (test code Test Information: = STAR) Cytomegalovirus (CMV) DNA, Quantitation. The quantitative range of this assay is 2.5 - 6.5 log IU/mL (300 - 3,000,000 IU/mL) ?or 2.7 - 6.7 log copies/mL (516 - 5,160,000 copies/mL). ?One IU/mL of CMV DNA is approximately 1.72 copies/mL. ?A negative result (less than 2.5 log IU/mL or less than 300 IU/mL) does not rule out the presence of PCR inhibitors in the patient specimen or CMV DNA concentrations below the level of detection by the assay. Inhibition may also lead to underestimation of viral quantitation. ?The limit of quantification for this DNA assay is 2.5 log IU/mL (300 IU/mL) or 2.7 log copies/mL (516 copies/mL). ?If the assay DID NOT DETECT the virus, the test result will be reported as "<2.5 log IU/mL (<300 IU/mL)" and "<2.7 log copies/mL (<516 copies/mL)." ?If the assay DETECTED the presence of the virus but was not able to accurately quantify the number of copies, the test result will be reported as "Detected, not quantifiable." Indeterminate: ?Unable to generate a valid test result on this specimen. ?Please submit a new specimen for repeat testing if clinically indicated. This is a laboratory-developed test using a still runner labeled ASR (Analyte Specific Reagent) as the reagent providing the specificity of the assay. ?This test was developed and its performance characteristics determined by [facility] Clinical Microbiology Laboratory. It has not been cleared or approved by the U.S. Food and Drug Administration; however, the FDA has determined that such clearance or approval is not necessary. This test is used for clinical purposes. It should not be regarded as investigational or for research. This laboratory is certified under the Clinical Laboratory Improvement Amendments of 1988 (CLIA-88) as qualified to perform high complexity clinical laboratory testing. [facility] Alice[facility]APTOGLOBIN, [id number] 19:59:34 Test Item Value Reference Range Interpretation Comments HAPTOGLOB (test code = 9850547537) 234 mg/dL 16-200 H Lab Interpretation (test code = Abnormal 18379-3) [facility] AliceFERRITIN [id number] 17:58:12 Test Item Value Reference Range Interpretation Comments FERRITIN (test code = 135.0 ng/mL 18.0-464.0 3002453991) STAR (test code = STAR) Biotin has been reported to cause a negative bias, interpret results relative to patient's use of biotin. Lab Interpretation (test Normal code = 23608-3) [facility] AliceIRON2022-01-07 17:19:26 Test Item Value Reference Range Interpretation Comments IRON (test code = 6984852515) 50 ug/dL 50-160 Lab Interpretation (test code = Normal 80315-0) [facility]. METABOLIC PANEL ([id number])2021-11-18 11:54:31 Test Item Value Reference Range Interpretation Comments NA (test code = 132 mmol/L 135-145 L 9753007433) K (test code = 3.6 mmol/L 3.5-5.0 6952178041) CL (test code = 101 mmol/L 98-108 9090196473) CO2 TOTAL (test code = 24 mmol/L 23-31 0458549195) AGAP (test code = 2-16 9872801043) BUN (test code = 8 mg/dL 7-23 3360732617) GLUCOSE (test code = 115 mg/dL 70-110 H 6384963935) CREATININE (test code = 0.75 mg/dL 0.60-1.25 0789803463) TOTAL BILI (test code = 1.8 mg/dL 0.1-1.1 H 2643428778) CALCIUM (test code = 7.9 mg/dL 8.6-10.6 L 0826364435) T PROTEIN (test code = 7.2 g/dL 6.3-8.2 1674468503) ALBUMIN (test code = 3.1 g/dL 3.5-5.0 L 5046064182) ALK PHOS (test code = 471 U/L 34-122 H 3312942726) ALTv (test code = 128 U/L 5-50 H 1742-6) AST(SGOT) (test code = 104 U/L 13-40 H 4518093154) eGFR (test code = mL/min/1.73m2 1927536246) STAR (test code = STAR) Association of Glomerular Filtration Rate (GFR) and Staging of Kidney Disease* + --+ --+ ------+| GFR (mL/min/1.73 m2) ?| With Kidney Damage ?| ?Without Kidney Damage+ --------+ --------+ +| ?>90 ?| ?Stage one ?| ? Normal ?+ ---+ ---+ -------+| ?60-89 ?| ?Stage two ?| ? Decreased GFR ? + --+ --+ ------+| ?30-59 ?| ?Stage three ?| ? Stage three ? + --+ --+ ------+| ?15-29 ?| ?Stage four ? | ? Stage four ?+ ---+ ---+ -------+| ?<15 (or dialysis) ? ?| ?Stage five ? | ? Stage five ?+ ---+ ---+ -------+ *Each stage assumes the associated GFR level has been in effect for at least three months. ?Stages 1 to 5, with or without kidney disease, indicate chronic kidney disease. Notes: Determination of stages one and two (with eGFR >59mL/min/1.73 m2) requires estimation of kidney damage for at least three months as defined by structural or functional abnormalities of the kidney, manifested by either:Pathological abnormalities or Markers of kidney damage (including abnormalities in the composition of the blood or urine or abnormalities in imaging tests). Lab Interpretation Abnormal (test code = 57682-4) [facility]I [id number] 11:54:31 Test Item Value Reference Range Interpretation Comments BILI CONJ (test code = 2089005547) 0.1 mg/dL 0.0-0.3 BILI UNCON (test code = 5484530936) 0.5 mg/dL 0.1-1.1 Lab Interpretation (test code = Normal 86768-7) [facility] WITH [id number] 11:27:05 Test Item Value Reference Range Interpretation Comments WBC (test code = See_Comment [Automated 7090-2) message] The sy stem which generated this result transmitted reference range : 4.20 - 10.70 10*3/?L. The reference range was not used to interpret this result as normal/abnormal . RBC (test code = See_Comment L [Automated 149-8) message] The sy stem which generated this result transmitted reference range : 4.26 - 5.52 10*6/?L. The reference range was not used to interpret this result as normal/abnormal . HGB (test code = 9.6 g/dL 12.2-16.4 L 718-7) HCT (test code = 29.3 % 38.4-49.3 L 4544-3) MCV (test code = 89.1 fL 81.7-95.6 787-2) MCH (test code = 29.2 pg 26.1-32.7 785-6) MCHC (test code = 32.8 g/dL 31.2-35.0 786-4) RDW-SD (test code = 55.4 fL 38.5-51.6 H 51688-3) RDW-CV (test code = 17.0 % 12.1-15.4 H 788-0) PLT (test code = See_Comment H [Automated 777-3) message] The sy stem which generated this result transmitted reference range : 150 - 328 10*3/ ?L. The reference r jalyn was not used to interpret this result as normal/abnormal . MPV (test code = 9.3 fL 9.8-13.0 L 74558-1) NRBC/100 WBC (test See_Comment [Automat ed code = 6577084005) message] The system which generated this result transmitted reference range : 0.0 - 10.0 /100 WBCs. The refer ence range was not u sed to interpret th is result as normal/abnormal . NRBC x10^3 (test code <0.01 See_Comment [Auto mated = 9057883892) message] The s ystem which generated this result transmitted reference range : 10*3/?L. The reference range was not used to interpret this result as normal/abnormal . GRAN MAT (NEUT) % 66.5 % (test code = 770-8) IMM GRAN % (test code 1.70 % = 2309242951) LYMPH % (test code = 14.9 % 736-9) MONO % (test code = 14.3 % 5905-5) EOS % (test code = 1.9 % 713-8) BASO % (test code = 0.7 % 706-2) GRAN MAT x10^3(ANC) 4.99 10*3/uL 1.99-6.95 (test code = 8590412966) IMM GRAN x10^3 (test 0.13 10*3/uL 0.00-0.06 H code = 8897703067) LYMPH x10^3 (test code 1.12 10*3/uL 1.09-3.23 = 731-0) MONO x10^3 (test code 1.07 10*3/uL 0.36-1.02 H = 742-7) EOS x10^3 (test code = 0.14 10*3/uL 0.06-0.53 711-2) BASO x10^3 (test code 0.05 10*3/uL 0.01-0.09 = 704-7) Lab Interpretation Abnormal (test code = 36662-0) [facility] [id number] 20:30:26 Test Item Value Reference Range Interpretation Comments CRP (test code = 9460277739) 8.4 mg/dL <0.8 H Lab Interpretation (test code = Abnormal 67207-6) [facility] PALLIDUM PARTICLE [id number] 20:05:03 Test Item Value Reference Range Interpretation Comments T. pallidum Particle Reactive Nonreactive A Agglutination (test code = 4341495572) STAR (test code = STAR) Based on IgG/IgM, RPR, and TPPA results, probable active T. pallidum infection. ? Lab Interpretation (test Abnormal code = 87684-9) [facility] Alice[facility] (QUANTITATIVE)2021-11-17 19:56:12 Test Item Value Reference Range Interpretation Comments RPR (Quantitative) (test code = 1:256 Nonreactive A 33678-5) Lab Interpretation (test code = Abnormal 69556-7) [facility] AliceDIFF CONSULT [id number] 19:03:09 LEUKOCYTES ARE UNREMARKABLE. FEW REACTIVE LYMPHOCYTES IDENTIFIED. MILD NORMOCYTIC NORMOCHROMIC ANEMIA. PLATELETS ARE UNREMARKABLE.[facility] AliceGALV ONLY - SYPHILIS [id number] 16:58:56 Test Item Value Reference Range Interpretation Comments Syphilis IgG/IgM (test Reactive Non-reactive A code = 36003-1) STAR (test code = STAR) Non-reactive - No serologic evidence of T. pallidum infection. Cannot exclude incubating or early syphilis. Submit a second specimen in 2-4 weeks if syphilis is clinically suspected. Equivocal - Further testing to follow. Reactive - Further testing to follow. Lab Interpretation (test Abnormal code = 37192-9) [facility] AliceHCV [id number] 15:42:39 Test Item Value Reference Range Interpretation Comments HCV Ab (test code = Positive 50550-7) HCV Semi-Quantitative (test code = 62713-1) APRI (test code = 5624882675) STAR (test code = Positive for HCV antibody STAR) with a high signal to cutoff ratio (s/c). ?Supplementary test for Hepatitis C Virus RNA Real-Time PCR is recommended if clinically indicated. ?If any questions, please contact Clinical Chemistry Director piped buttonhole machine operator at [phone].APRI score < 0.5: Suggestive of little to no fibrosisAPRI score > 1.5: Suggestive of moderate to severe fibrosisAPRI score > 2.0: Highly suggestive of cirrhosis. [facility] WITH [id number] 14:43:40 Test Item Value Reference Range Interpretation Comments WBC (test code = See_Comment [Automated 6690-2) message] The sy stem which generated this result transmitted reference range : 4.20 - 10.70 10*3/?L. The reference range was not used to interpret this result as normal/abnormal . RBC (test code = See_Comment L [Automated 789-8) message] The sy stem which generated this result transmitted reference range : 4.26 - 5.52 10*6/?L. The reference range was not used to interpret this result as normal/abnormal . HGB (test code = 11.8 g/dL 12.2-16.4 L 718-7) HCT (test code = 34.7 % 38.4-49.3 L 4544-3) MCV (test code = 89.0 fL 81.7-95.6 787-2) MCH (test code = 30.3 pg 26.1-32.7 785-6) MCHC (test code = 34.0 g/dL 31.2-35.0 786-4) RDW-SD (test code = 57.9 fL 38.5-51.6 H 43497-4) RDW-CV (test code = 18.0 % 12.1-15.4 H 788-0) PLT (test code = See_Comment [Automated 777-3) message] The sy stem which generated this result transmitted reference range : 150 - 328 10*3/ ?L. The reference r jalyn was not used to interpret this result as normal/abnormal . MPV (test code = 10.8 fL 9.8-13.0 36833-1) NRBC/100 WBC (test See_Comment [Automat ed code = 9231470562) message] The system which generated this result transmitted reference range : 0.0 - 10.0 /100 WBCs. The refer ence range was not u sed to interpret th is result as normal/abnormal . NRBC x10^3 (test code <0.01 See_Comment [Auto mated = 5461184637) message] The s ystem which generated this result transmitted reference range : 10*3/?L. The reference range was not used to interpret this result as normal/abnormal . GRAN MAT (NEUT) % 68.8 % (test code = 770-8) IMM GRAN % (test code 1.20 % = 2327798926) LYMPH % (test code = 16.6 % 736-9) MONO % (test code = 11.0 % 5905-5) EOS % (test code = 1.6 % 713-8) BASO % (test code = 0.8 % 706-2) GRAN MAT x10^3(ANC) 5.06 10*3/uL 1.99-6.95 (test code = 0720735871) IMM GRAN x10^3 (test 0.09 10*3/uL 0.00-0.06 H code = 0392260265) LYMPH x10^3 (test code 1.22 10*3/uL 1.09-3.23 = 731-0) MONO x10^3 (test code 0.81 10*3/uL 0.36-1.02 = 742-7) EOS x10^3 (test code = 0.12 10*3/uL 0.06-0.53 711-2) BASO x10^3 (test code 0.06 10*3/uL 0.01-0.09 = 704-7) Lab Interpretation Abnormal (test code = 07483-2) [facility] AliceHEPATITIS B SURFACE [id number] 11:33:57 Test Item Value Reference Range Interpretation Comments HBsAB (test code = Negative 6801942525) HBsAb mIU/mL Semi-Quantitative (test code = 6728073471) STAR (test code = Interpretation: STAR) ?Hepatitis B Surface Antibody ? Negative - Patient is considered to be not immune to infection with HBV. ? ? Positive - Anti-HBs detected at greater than or equal to 12 mIU/mL. ?Patient is considered to be immune to infection with HBV. ? [facility] [id number] 10:57:13 Test Item Value Reference Range Interpretation Comments HBCM Negative Semi-Quantitative (test code = 26090-1) STAR (test code = Biotin has been reported STAR) to cause a negative bias, interpret results relative to patient's use of biotin. [facility] AliceHETRISTAR [facility] A VIRUS ANTIBODY [id number] 10:57:13 Test Item Value Reference Range Interpretation Comments HAVM Negative Semi-Quantitative (test code = 81391-9) STAR (test code = HAVAb IgM Interpretative STAR) Information: Reactive greater than or equal to 1.2 Biotin has been reported to cause a negative bias, interpret results relative to patient's use of biotin. [facility] B SURFACE [id number] 10:52:05 Test Item Value Reference Range Interpretation Comments HBsAg Semi-Quantitative (test code = Positive Negative A 5195-3) Lab Interpretation (test code = Abnormal 93400-6) [facility] AliceSEDIMENTATION [id number] 10:30:25 Test Item Value Reference Range Interpretation Comments ESR (test code = See_Comment H [Automated message] 3613784633) The system [employer] generated this result transmitted ref erence range: 0 - 10 m m/HR. The reference r jalyn was not used to interpret this result as normal/abnor mal. Lab Interpretation (test Abnormal code = 03003-5) [facility] AliceHIV 1/2 AG-AB WITH [id number] 10:27:44 Test Item Value Reference Range Interpretation Comments HIV Negative Negative Semi-quantitative (test code = 07455-6) STAR (test code = Non-reactive for HIV-1 STAR) antigen and HIV-1/HIV-2 antibodies. ?No laboratory evidence of HIV infection. ?Repeat in 2-4 weeks if acute HIV infection is suspected. [facility] AliceHEPATIC FUNCTION PANEL (52470) (ALB,T.PRO,BILI T,BU/BC,ALT,AST,ALK PHOS)2021-11-17 10:06:02 Test Item Value Reference Range Interpretation Comments TOTAL BILI (test code = 5810769477) 2.1 mg/dL 0.1-1.1 H BILI UNCON (test code = 5986353997) 0.5 mg/dL 0.1-1.1 BILI CONJ (test code = 0833929556) 0.4 mg/dL 0.0-0.3 H T PROTEIN (test code = 8451701229) 7.7 g/dL 6.3-8.2 ALBUMIN (test code = 2233181174) 3.3 g/dL 3.5-5.0 L ALK PHOS (test code = 8683786620) 544 U/L 34-122 H ALTv (test code = 1742-6) 150 U/L 5-50 H AST(SGOT) (test code = 5927237551) 153 U/L 13-40 H Lab Interpretation (test code = Abnormal 11404-7) [facility] METABOLIC PANEL (NA, K, CL, CO2, GLUCOSE, BUN, CREATININE, CA)2021-11-17 10:06:02 Test Item Value Reference Range Interpretation Comments NA (test code = 136 mmol/L 135-145 3612068756) K (test code = 4.2 mmol/L 3.5-5.0 1646941358) CL (test code = 106 mmol/L 98-108 4989635115) CO2 TOTAL (test code = 23 mmol/L 23-31 5355950592) AGAP (test code = 2-16 5086663472) BUN (test code = 10 mg/dL 7-23 7953037189) GLUCOSE (test code = 74 mg/dL 70-110 0987897625) CREATININE (test code = 0.78 mg/dL 0.60-1.25 5374169383) CALCIUM (test code = 7.9 mg/dL 8.6-10.6 L 9529563032) eGFR (test code = mL/min/1.73m2 6910649793) STAR (test code = STAR) Association of Glomerular Filtration Rate (GFR) and Staging of Kidney Disease* + --+ --+ ------+| GFR (mL/min/1.73 m2) ?| With Kidney Damage ?| ?Without Kidney Damage+ --------+ --------+ +| ?>90 ?| ?Stage one ?| ? Normal ?+ ---+ ---+ -------+| ?60-89 ?| ?Stage two ?| ? Decreased GFR ? + --+ --+ ------+| ?30-59 ?| ?Stage three ?| ? Stage three ? + --+ --+ ------+| ?15-29 ?| ?Stage four ? | ? Stage four ?+ ---+ ---+ -------+| ?<15 (or dialysis) ? ?| ?Stage five ? | ? Stage five ?+ ---+ ---+ -------+ *Each stage assumes the associated GFR level has been in effect for at least three months. ?Stages 1 to 5, with or without kidney disease, indicate chronic kidney disease. Notes: Determination of stages one and two (with eGFR >59mL/min/1.73 m2) requires estimation of kidney damage for at least three months as defined by structural or functional abnormalities of the kidney, manifested by either:Pathological abnormalities or Markers of kidney damage (including abnormalities in the composition of the blood or urine or abnormalities in imaging tests). Lab Interpretation Abnormal (test code = 06405-2) [facility] AliceD-[id number] 09:54:02 Test Item Value Reference Interpretation Comments Range D-DIMER (test code = See_Comment H [Autom ated 0805488779) message] The system which generated this result transmitted reference range : <0.50 ?g/mL (FEU). The reference range was not used to interpret this result as normal/abnormal . STAR (test code = This test may be STAR) used in conjunction with a clinical pretest probability (PTP) assessment model to exclude venous thromboembolism (VTE) in patients suspected of deep venous thrombosis (DVT) and pulmonary embolism (PE) A D-Dimer value less than 0.50 ?g/ml (FEU) has a negative predicative value of 96 to 100% (95% CI)and 97 to 100% (95% CI) as an aid in the diagnosis of deep vein thrombosis (DVT) and pulmonary embolism when there is low or moderate pretest probability of PE or DVT. D-Dimer values are expressed in initial fibrinogen equivalent units (FEU)" The assay results should be used with other information, including the clinical context, in forming a diagnosis. Lab Interpretation Abnormal (test code = 55117-9) [facility] AliceCREATINE [id number] 09:42:22 Test Item Value Reference Range Interpretation Comments CK (test code = 8778511098) <20 33-194 L Lab Interpretation (test code = Abnormal 57773-9) [facility] AliceTHYROID STIMULATING [id number] 08:58:33 Test Item Value Reference Range Interpretation Comments TSH (test code = See_Comment [Automated message] 3842962477) The system [employer] generated this result transmitted ref erence range: 0.45 - 4 .70 mIU/L. The refe rence range was not u sed to interpret this result as normal/abnor mal. Lab Interpretation (test Normal code = 25132-5) [facility] AliceN-TERMINAL [id number] 08:37:09 Test Item Value Reference Range Interpretation Comments NT-proBNP (test code 373 pg/mL See_Comment H [Autom ated = 4813501029) message] The system which generated this result transmitted reference range : <=125. The reference range was not used to interpret this result as normal/abnormal . STAR (test code = STAR) Biotin has been reported to cause a negative bias, interpret results relative to patient's use of biotin. Lab Interpretation Abnormal (test code = 10937-1) [facility] AliceETHANOL2022-01-06 08:34:12 Test Item Value Reference Range Interpretation Comments ALCOHOL (test code = <10 mg/dL 7670800796) STAR (test code = Toxic Greater than or STAR) equal to 80 mg/dL. NOTE: Whole blood values are approximately 10% to 15% lower than serum and plasma. [facility] AliceACETAMINOPHEN2022-01-06 08:34:02 Test Item Value Reference Range Interpretation Comments ACETAMINOP (test code = <10.0 10.0-30.0 L 3896503189) STAR (test code = STAR) Toxic: Greater than 200 ug/mL @ 4 hour post ingestion or greater than 50 ug/mL @ 12 hour post ingestion Lab Interpretation (test Abnormal code = 90176-7) [facility] AliceLIPASE2022-01-06 02:53:35 Test Item Value Reference Range Interpretation Comments LIPASE (test code = 6303607036) 160 U/L 0-220 Lab Interpretation (test code = Normal 26876-7) [facility] AliceEBV-MONONUCLEOSIS [id number] 02:03:45 Test Item Value Reference Range Interpretation Comments EBV Mononucleosis Screen (test code Negative Negative = 7333098911) Lab Interpretation (test code = Normal 02623-5) [facility] AliceTROPONIN [id number] 23:56:57 Test Item Value Reference Interpretation Comments Range TROPONIN I (test 0.001 ng/mL See_Comment [Automated code = 2493260041) message] The system which generated this result transmitted reference range : <=0.034. The reference range was not used to interpret this result as normal/abnormal . STAR (test code = Reference (Normal) STAR) Range (defined by the 99th percentile reference limit): <= 0.034 ng/mL Note: Cardiac troponin begins to rise 3-4 hours after the onset of ischemia. Repeat in 4-6 hours if the sample was drawn within 3-4 hours of the onset of the symptom and found normal. Diagnosis of myocardial injury is made with acute changes in cTn concentrations with at least one serial sample above the 99th percentile upper reference limit (URL), taken together with the patient's clinical presentation. Biotin has been reported to cause a negative bias, interpret results relative to patient's use of biotin. Lab Interpretation Normal (test code = 76998-2) [facility]. METABOLIC PANEL (65953)2021-11-16 23:45:32 Test Item Value Reference Range Interpretation Comments NA (test code = 133 mmol/L 135-145 L 5977588020) K (test code = 4.3 mmol/L 3.5-5.0 8437310185) CL (test code = 102 mmol/L 98-108 9379409118) CO2 TOTAL (test code = 23 mmol/L 23-31 5529330315) AGAP (test code = 2-16 3857701475) BUN (test code = 14 mg/dL 7-23 1529332860) GLUCOSE (test code = 112 mg/dL 70-110 H 0487403333) CREATININE (test code = 0.74 mg/dL 0.60-1.25 8420201477) TOTAL BILI (test code = 1.2 mg/dL 0.1-1.1 H 4546783865) CALCIUM (test code = 7.9 mg/dL 8.6-10.6 L 6560386614) T PROTEIN (test code = 7.4 g/dL 6.3-8.2 8868635249) ALBUMIN (test code = 3.2 g/dL 3.5-5.0 L 9701941161) ALK PHOS (test code = 602 U/L 34-122 H 6276177622) ALTv (test code = 154 U/L 5-50 H 1742-6) AST(SGOT) (test code = 207 U/L 13-40 H 8336175369) eGFR (test code = mL/min/1.73m2 9625562113) STAR (test code = STAR) Association of Glomerular Filtration Rate (GFR) and Staging of Kidney Disease* + --+ --+ ------+| GFR (mL/min/1.73 m2) ?| With Kidney Damage ?| ?Without Kidney Damage+ --------+ --------+ +| ?>90 ?| ?Stage one ?| ? Normal ?+ ---+ ---+ -------+| ?60-89 ?| ?Stage two ?| ? Decreased GFR ? + --+ --+ ------+| ?30-59 ?| ?Stage three ?| ? Stage three ? + --+ --+ ------+| ?15-29 ?| ?Stage four ? | ? Stage four ?+ ---+ ---+ -------+| ?<15 (or dialysis) ? ?| ?Stage five ? | ? Stage five ?+ ---+ ---+ -------+ *Each stage assumes the associated GFR level has been in effect for at least three months. ?Stages 1 to 5, with or without kidney disease, indicate chronic kidney disease. Notes: Determination of stages one and two (with eGFR >59mL/min/1.73 m2) requires estimation of kidney damage for at least three months as defined by structural or functional abnormalities of the kidney, manifested by either:Pathological abnormalities or Markers of kidney damage (including abnormalities in the composition of the blood or urine or abnormalities in imaging tests). Lab Interpretation Abnormal (test code = 98216-7) [facility] WITH [id number] 23:28:46 Test Item Value Reference Range Interpretation Comments WBC (test code = See_Comment [Automated 6690-2) message] The sy stem which generated this result transmitted reference range : 4.20 - 10.70 10*3/?L. The reference range was not used to interpret this result as normal/abnormal . RBC (test code = See_Comment L [Automated 789-8) message] The sy stem which generated this result transmitted reference range : 4.26 - 5.52 10*6/?L. The reference range was not used to interpret this result as normal/abnormal . HGB (test code = 11.3 g/dL 12.2-16.4 L 718-7) HCT (test code = 34.0 % 38.4-49.3 L 4544-3) MCV (test code = 90.9 fL 81.7-95.6 787-2) MCH (test code = 30.2 pg 26.1-32.7 785-6) MCHC (test code = 33.2 g/dL 31.2-35.0 786-4) RDW-SD (test code = 59.5 fL 38.5-51.6 H 43679-1) RDW-CV (test code = 17.9 % 12.1-15.4 H 788-0) PLT (test code = See_Comment H [Automated 777-3) message] The sy stem which generated this result transmitted reference range : 150 - 328 10*3/ ?L. The reference r jalyn was not used to interpret this result as normal/abnormal . MPV (test code = 9.8 fL 9.8-13.0 08494-6) NRBC/100 WBC (test See_Comment [Automat ed code = 2609446322) message] The system which generated this result transmitted reference range : 0.0 - 10.0 /100 WBCs. The refer ence range was not u sed to interpret th is result as normal/abnormal . NRBC x10^3 (test code <0.01 See_Comment [Auto mated = 8606563569) message] The s ystem which generated this result transmitted reference range : 10*3/?L. The reference range was not used to interpret this result as normal/abnormal . GRAN MAT (NEUT) % 74.8 % (test code = 770-8) IMM GRAN % (test code 1.20 % = 7476770116) LYMPH % (test code = 13.3 % 736-9) MONO % (test code = 8.4 % 5905-5) EOS % (test code = 1.5 % 713-8) BASO % (test code = 0.8 % 706-2) GRAN MAT x10^3(ANC) 5.58 10*3/uL 1.99-6.95 (test code = 9981133692) IMM GRAN x10^3 (test 0.09 10*3/uL 0.00-0.06 H code = 6008565267) LYMPH x10^3 (test code 0.99 10*3/uL 1.09-3.23 L = 731-0) MONO x10^3 (test code 0.63 10*3/uL 0.36-1.02 = 742-7) EOS x10^3 (test code = 0.11 10*3/uL 0.06-0.53 711-2) BASO x10^3 (test code 0.06 10*3/uL 0.01-0.09 = 704-7) Lab Interpretation Abnormal (test code = 38630-1) [facility]
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
[2022-02-24 17:19] LABS: Absolute Lymphocytes (CBC) 2.7 K/uL (0.7-4.9); Hematocrit 45.5 % (39.6-49.0); Lymphocytes % 21.4 % (15.3-44.8); RBC Red Blood Cell Count 5.07 M/uL (4.33-5.43)
[2022-02-24 17:23] LABS: Protime INR 1.04
[2022-02-24] MEDS ORDERED: MORPHINE 4 MG/ML SYR ONE (17:23)
[2022-02-24] MEDS ORDERED: ONDANSETRON 4 MG/2 ML VIAL ONE (17:23)
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
[2022-02-24 17:34] LABS: Albumin 4.1 g/dL (3.4-5.0); Bilirubin Total 0.8 mg/dL (0.2-1.0); Potassium 3.8 mmol/L (3.5-5.1); Protein, Total 8.6 g/dL (6.4-8.2)
[2022-02-24] MEDS ORDERED: LEVETIRACETAM 500 MG/5 ML VIAL IV ONE (17:35)
[2022-02-24] MEDS ORDERED: NA CHLORIDE 0.9% 100 ML IV ONE (17:36)
[2022-02-24] MEDS ORDERED: Nicardipine/NS 25 MG/250 ML KIT IV ONE (18:12)
[2022-02-24] MEDS ORDERED: FENTANYL CITR 100 MCG/2 ML ONE (18:18)
[2022-02-24 19:41] VITALS: TEMP 98
[2022-02-24 19:43] VITALS: O2SAT 100
[2022-02-24 19:51] VITALS: BP 158/106
== END 2022-02-24 18:38 | disposition short-term general hospital (02) ==
LOC: ER 15:37
DX: S06.4X0A Epidural hemorrhage without loss of consciousness, initial encounter (principal); Y04.2XXA Assault by strike against or bumped into by another person, initial encounter; F17.210 Nicotine dependence, cigarettes, uncomplicated
CPT/HCPCS: 36415; 70450; 70486; 72125; 76377; 80053; 85025; 85610; 93005; 96365; 96367; 96375; 99285; J1953; J2405; J3010

== ENCOUNTER 2022-02-28 05:48 | Emergency (ER) | payer SELFPAY ==
--- OUTSIDE RECORDS SUMMARY | 2022-02-28 05:53 | XMS REPORT | Continuity of Care Document ---
:1990 Author Organization [facility] t Address [address] [place] [address] Care Team Providers Name Role Phone Pcp, Does Not Have A Primary Care Physician Arley DARNELL Attending Clinician GILBERTO ADDISON Attending Clinician Unavailable Patel DACOSTA, B Attending Clinician Forrest DRUMMOND, C Attending [...] Active U nivers 1-11 ity of 00:00: [address] Syphilis, Syphilis, Disease Active Uni vers secondary secondary -07 ity of 00:00: [address] Chronic Chronic Disease Active Univers hepatitis hepatitis -07 ity of B virus B virus 00:00: [place] infection infection [address] [place] [address] Acute Acute Disease Active Univers hyponatrem hyponatrem -07 it y of ia ia 00:00: [address] 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 11-17 ity of lymphadeno [place]adeno [place] [facility] Allergies, Adverse Reactions, Alerts Allergy Allergy Status Severity Reaction(s) Onset Inactive Treating Comm ents Source Name Type Date Date Clinician NO KNOWN Drug Active Univers ALLERGIE Class ity of S [facility] Social History Social Habit Start Date Stop Date Quantity Comments Source Exposure to Not sure [facility] SARS-CoV-2 (event) [facility] Sex Assigned At [birth year] [facility] 00:00:00 00:00:[address] [facility] Smoking Status Start Date Stop Date Source Unknown if ever smoked [facility] Medications Ordered Filled Start Stop Current Ordering Indication Dosage Frequency Signature Comments Components Source Medication Medication Date Date Medication? Clinician (SIG) Name Name bisacodyL No 10mg 10 mg, Unive rs (DULCOLAX) 11-22 Rectal, ity o f suppository 20:45: 20:55 [place]CE[place] 1 [place] 10 mg 00 :00 dose, On Medical [facility] 11/22/21 at 1445, Routine enoxaparin Yes 40mg 40 mg, Unive rs (LOVENOX) 11-22 Subcutaneo ity of injection 15:00: [place]ILY[place] 40 mg 00 First dose Medical on [facility] 11/22/21 at 0900, Until Discontinu ed, Routine [...] Indication s: acute pain acyclovir 2021- No [id number] 400mg Take 2 Univers 200 mg 11-22 capsules ity of capsule 00:00: 05:59 by mouth [place] 00 :00 every 8 Medical (eight) Branch hours for 5 days. acyclovir 2021- No [id number] 400mg Take 2 Univers 200 mg 11-22 capsules ity of capsule 00:00: 05:59 by mouth [place] 00 :00 every 8 Medical (eight) Branch hours for 5 days. acyclovir 2021- No [id number] 400mg Take 2 Univers 200 mg 11-22 capsules ity of capsule 00:00: 00:00 by mouth [place] 00 :00 every 8 Medical (eight) Branch hours for 7 days. acetaminoph 2021-0 Yes 650mg 650 mg, Un nhi en 1-10 Oral, ity of (TYLENOL) 22:01: Q8HPRN, [place] tablet 650 04 Starting Medic al mg on Sun11/21/21 at 1601, Until Discontinu ed, Routine, Pain (scale 1-3) HYDROcodone 2021-0 Yes 1{tbl} 1 tablet, Univers -acetaminop 1-10 Oral, ity of hen (NORCO 22:00: Q6HPRN, [facility]) 5-325 mg 00 Starting Medi jonathan tablet 1 on Sun tablet 11/21/21 at 1600, Until Discontinu ed, Routine, Pain (scale 4-6), Pain (scale 7-10) morpHINE 2021-0 Yes 4mg 4 mg, Slow Uni vers injection 4 1-10 IV Push, ity of mg 22:00: Q4HPRN, [place] 00 Starting Medical on Sun11/21/21 at 1600, Until Discontinu ed, Routine, can give w norco if neccesary for breakthrou gh pain glycerin/mi 2021-0 Yes 225mL 225 mL, Un nhi neral oil 1-10 Rectal, ity of (AGLO 21:58: PRN, [place] ENEMA) 57 Starting Medical (COMPOUNDED on Sun ) Enem 225 11/21/21 at mL 1558, Until Discontinu ed, Routine, Constipati on unresolved by oral medication s magnesium Yes 30mL 30 mL, Univer s hydroxide -10 Oral, BID, ity of (MILK OF 02:00: First dose [place] as MAGNESIA) 00 on [place] [facility] 400 mg/5 mL 11/20/21 at [facility] suspension 2000, 30 mL Until Discontinu ed, Routine bisacodyL 2021- No 10mg 10 mg, Unive rs (DULCOLAX) 11-21- Oral, ity of tablet 10 00:45: 14:11 DAILY, 2 [place] as mg 00 :00 doses, Medical First dose Branch on [place] 11/20/21 at 1845, Last dose on [facility] 11/21/21 at 0900, Routine acyclovir Yes 400mg 400 mg, Univ ers (ZOVIRAX) 09 Oral, Q8H, ity of capsule 400 12:00: First dose [place] mg 00 on [facility] 11/20/21 at Branch 0600, Until Discontinu ed, VANGIE doxycycline No 100mg 100 mg, U nivers hyclate 11-2011 Oral, ity of (Vibramycin 12:00: 08:08 Q12HA2, [place] capsule 00 :27 First dose Medi jonathan 100 mg on [facility] 11/20/21 at 0600, Until Discontinu ed, VANGIE
[...] dose [place] 17 g 00 on Sun [facility] 11/18/21 at Branch 1545, Until Discontinu ed, Routine morpHINE 2021- No 6mg 6 mg, Slow Un nhi injection 6 11-1810 IV Push, ity of mg 21:31: 21:58 Q3HPRN, [place] 05 :01 Starting Medical on Sun Branch 11/18/21 at 1531, Until 11/21/21 at 1558, Routine, Pain (scale 4-6), Pain (scale 7-10), can give w norco if neccesary for breakthrou gh pain ondansetron Yes 4mg 4 mg, Slow Univers (ZOFRAN 11-18 IV Push, ity of (PF)) 21:30: Q6HPRN, [place] injection 4 02 Starting Medi jonathan mg on Sun Branch 11/18/21 at 1530, Until Discontinu ed, Routine, Nausea and Vomiting (N/V) morpHINE 2021- No PRN, Univers injection 11-18 Starting ity o f 19:16: 21:29 on Sun [place] 10 :46 11/18/21 at Medical 1316, Branch Until Sun11/18/21 at 1529, Routine tc 2021- No [id number] [facility] 10 [facility] 99m-mebrofe 11-18 millicurie i ty of [...] Hospital Medica l tablet 1 11/17/21 at [place] tablet 2044, Until Discontinu ed, Routine morpHINE 2021- No 5mg 5 mg, Slow Un nhi injection 5 11-18 IV Push, ity of [...] on [place] Branch 11/17/21 at 1247, Until [facility] 11/21/21 at 1601, Routine, Pain (scale 1-3), Temp > 38.5 C morpHINE 2021- No 2mg 2 mg, Slow Un nhi injection 2 11-17 IV Push, ity of mg 14:53: 18:47 Q4HPRN, [address] [place] [address] 08 :58 doses, Medical Starting Branch on [...] ity of 1,000 mg in 03:00: 03:53 [place], [place] NaCl 0.9% 00 :00 ONCE, 1 Medical (NS) 250 mL dose, On [facility] VIAL-MATE 11/16/21 IV at 2100, piggyback Administer over 60 Minutes, 250 mL
Reas on for Anti-Infec tive: Empiric Therapy for Suspected Infection< br>Empiric Therapy Site: Blood
D uration of therapy: 72 hours cefTRIAXone No 1000mg 1,000 mg, Univers (ROCEPHIN) 11-17 IV ity of 1,000 mg in 03:00: 03:11 [place], [place] NaCl 0.9% 00 :00 ONCE, 1 Medical (NS) 50 mL dose, On [facility] h MINI-BAG 11/16/21 at 2100, Administer over 30 Minutes, 50 mL
R lynette for Anti-Infec tive: Empiric Therapy for Suspected Infection< br>Empiric Therapy Site: Blood
D uration of therapy: 72 hours iopamidol 2021- No [id number] 100mL 100 mL, Univers (ISOVUE 11-17 Intravenou [...] Sun11/16/21 at 1730, VANGIE casirivimab 2020-11- No [id number] 1200mg 1,200 mg, Univers -imdevimab 12-28 Subcutaneo it y of (REGEN-COV 23:45: 22:33 us, ONCE, [place] (EUA)) 00 :00 1 dose, On Medical injection [place] Branch (CO-FORMULA 10/27/21 TION) 1,200 at 1745, mg Routine Vital Signs Vital Name Observation Time Observation Value Comments Source Systolic blood 2021-11-22 18:00:00 113 mm[Hg] Univer sity of pressure [facility] Diastolic blood 2021-11-22 18:00:00 69 mm[Hg] Unive rsity of pressure [facility] Heart rate 2021-11-22 18:00:00 83 /min Universi ty of [facility] Body temperature 2021-11-22 18:00:00 35.83 Christen Univ ersity of [facility] Oxygen saturation in 2021-11-22 18:00:00 99 /min University of Arterial blood by [place] [employer] jonathan Pulse oximetry Branch Respiratory rate 2021-11-22 09:55:00 16 /min Univ ersity of [facility] Body height 2021-11-17 07:45:00 170.2 cm Universi ty of [facility] Body weight 2021-11-17 07:45:00 65.318 kg Universi ty of [facility] BMI 2021-11-17 07:45:00 22.55 kg/m2 Universi ty of [facility] Systolic blood 2021-10-27 23:18:00 131 mm[Hg] Univer sity of pressure [facility] Diastolic blood 2021-10-27 23:18:00 77 mm[Hg] Unive rsity of pressure [facility] Heart rate 2021-10-27 23:18:00 89 /min Universi ty of [facility] Body temperature 2021-10-27 23:18:00 37.22 Christen Univ ersity of [facility] Respiratory rate 2021-10-27 23:18:00 20 /min Univ ersity of [facility] Oxygen saturation in 2021-10-27 23:18:00 99 /min University of Arterial blood by [place] [employer] jonathan Pulse oximetry Branch Body height 2021-10-27 22:30:00 170.2 cm Universi ty of [facility] Body weight 2021-10-27 22:30:00 61.689 kg Universi ty of [facility] BMI 2021-10-27 22:30:00 21.30 kg/m2 Universi ty of [facility] Procedures Procedure Date / Time Performing Clinician Source Performed XR KUB 2021-11-22 08:53:00 Lisa Fofana o [facility] GC & CHLAMYDIA AMPLIFIED 2021-11-20 16:21:00 Lisa Fofana [facility] GC & CHLAMYDIA AMPLIFIED 2021-11-20 16:19:00 FofanaLisa [facility] ASSAY [facility] COMP. METABOLIC PANEL 2021-11-20 12:36:00 Sheaantonio Bita [facility] ([id number]) Medical [place] GC & CHLAMYDIA AMPLIFIED 2021-11-20 07:24[facility] HSV 1&2, VZV NAAT 2021-11-20 07:24:00 Lisa Fofana [facility] US ABDOMEN LIMITED 2021-11-19 15:45:14 [facility] COMP. METABOLIC PANEL 2021-11-19 11:36:00 [facility] ([id number] CBC WITH DIFF 2021-11-19 11:36:00 [facility] HEPATITIS B VIRUS (HBV) 2021-11-19 11:36:00 [facility] BY QUANTITATIVE NAAT [facility] XR ABDOMEN 2 VW 2021-11-19 01:05:00 [facility] HB ECG ROUTINE & RHYTHM 2021-11-18 23:18:53 [facility] NM HEPATOBILIARY W 2021-11-18 20:00:00 [facility] INTERVENTION [facility] FERRITIN SERUM 2021-11-18 11:07:00 [facility] IRON 2021-11-18 11:07:00 [facility] BILI UNCONJUGATED/BILI 2021-11-18 11:07:00 [facility] CONJUG [facility] COMP. METABOLIC PANEL 2021-11-18 11:07:00 [facility] ([id number] CBC WITH DIFF 2021-11-18 11:07:00 Shun Brownfield o f [facility] CEREBROSPINAL FLUID 2021-11-18 03:31:00 Junior Silva [facility] PROTEIN [facility] CEREBROSPINAL FLUID 2021-11-18 03:31:00 Junior Silva [facility] GLUCOSE [facility] BODY FLUID DIRECT COUNT 2021-11-18 03:31:00 Junior Silva [facility] CSF/BOARDING SPECIALIST SHUNT CULTURE 2021-11-18 03:31:00 Junior Silva [facility] FUNGUS (ROUTINE) CULTURE 2021-11-18 03:31:00 [facility] 2021-11-18 03:31:00 Jnuior Silva [facility] TRANSTHORACIC ECHO (TTE) 2021-11-17 21:37:[facility] BY [facility] 2021-11-17 15:25:00 Junior Silva [facility] GALV ONLY - SYPHILIS 2021-11-17 10:00:00 Junior Silva [facility] IGG/IGM [facility] HEPATITIS B SURFACE 2021-11-17 10:00:00 Junior Silva [facility] ANTIBODY [facility] RPR (QUANTITATIVE) 2021-11-17 10:00:00 Junior Silva [facility] MRSA / MSSA SCREEN BY 2021-11-17 09:25:00 Junior Silva [facility] PCR, NARES [facility] THROAT CULTURE 2021-11-17 09:16:00 Junior Silva [facility] HAPTOGLOBIN, SERUM 2021-11-17 09:13:00 [facility] C-REACTIVE PROTEIN 2021-11-17 09:13:00 Junior Silva [facility] HEPATIC FUNCTION PANEL 2021-11-17 09:13:00 Junior Silva [facility] ([id number]) (ALB,T.PRO,BILI [facility] T,BU/BC,ALT,AST,ALK PHOS) BASIC METABOLIC PANEL 2021-11-17 09:13:00 Junior Silva [facility] (NA, K, CL, CO2, GLUCOSE, Medica l Branch BUN, CREATININE, CA) SEDIMENTATION RATE 2021-11-17 09:13:00 Junior Silva [facility] DIFF CONSULT 2021-11-17 09:13:00 [facility] CBC WITH DIFF 2021-11-17 09:13:00 [facility] D-DIMER 2021-11-17 09:13:00 Junior Silva [facility] HEPATITIS B SURFACE 2021-11-17 09:13:00 Junior Silva [facility] ANTIGEN [facility] HCV ANTIBODY 2021-11-17 09:13:00 [facility] HEPATITIS A VIRUS 2021-11-17 09:13:00 Junior Silva [facility] ANTIBODY IGM [facility] HEPATITIS B CORE ANTIBODY 2021-11-17 09:13:00 Junior Silva [facility] IGM [facility] HEPATITIS C VIRUS (HCV) 2021-11-17 09:13:00 Junior Silva [facility] BY QUANTITATIVE NAAT [facility] QUANTIFERON-TB ASSAY 2021-11-17 09:13:00 Junior Silva [facility] TYPHUS FEVER AB, IGM 2021-11-17 09:13:00 Junior Silva [facility] URINE DRUG (IMMUNOASSAY) 2021-11-17 09:00:00 Junior Silva [facility] - COMPREHENSIVE DRUG [facility] SCREEN URINE DRUG (LCMSMS) - 2021-11-17 09:00:00 Junior Silva [facility] SYNTHETIC OPIATES PANEL Medical Branch CT ABDOMEN PELVIS W 2021-11-17 02:22:48 Javan Sweeney [facility] CONTRAST [facility] CT SOFT TISSUE NECK W 2021-11-17 02:22:48 Javan Sweeney [facility] CONTRAST [facility] CT CHEST PULMONARY 2021-11-17 02:22:48 Javan Sweeney [facility] ANGIOGRAM [facility] US GALL BLADDER 2021-11-17 01:24:40 Javan Sweeney [facility] XR CHEST 1 VW 2021-11-17 00:32:07 Javan Sweeney [facility] URINALYSIS 2021-11-16 23:30:00 Javan Sweeney [facility] URINE CULTURE 2021-11-16 23:30:00 Javan Sweeney [facility] HB ECG ROUTINE & RHYTHM 2021-11-16 23:28:50 Javan Sweeney [facility] ASSIGNMENT OF BENEFITS 2021-11-16 23:13:59 Doctor Unassigned, Un [facility] [place] [facility] LACTIC ACID WHOLE BLOOD 2021-11-16 23:08:00 Javan Sweeney [facility] BLOOD CULTURE SCREEN 2021-11-16 23:07:[address] [facility] CREATINE KINASE 2021-11-16 23:07:00 Junior Silva [facility] LIPASE 2021-11-16 23:07:00 Dwayne Johns [place] o f [facility] TROPONIN I 2021-11-16 23:07:00 Javan Sweeney [facility] THYROID STIMULATING 2021-11-16 23:07:00 Junior Silva [facility] HORMONE [facility] COMP. METABOLIC PANEL 2021-11-16 23:07:[address] ([id number]) [facility] ACETAMINOPHEN 2021-11-16 23:07:00 Junior Silva [facility] ETHANOL 2021-11-16 23:07:00 Junior Silva [facility] CBC WITH DIFF 2021-11-16 23:07:00 Javan Sweeney [facility] EBV-MONONUCLEOSIS SCREEN 2021-11-16 23:07:00 Dwayne Johns [facility] N-TERMINAL PRO-BNP 2021-11-16 23:07:00 Junior Silva [facility] HIV 1/2 AG-AB WITH REFLEX 2021-11-16 23:07:00 Junior Silva [facility] RAPID INFLUENZA A/B 2021-11-16 23:06:00 Javan Sweeney [facility] COVID-19 (ID NOW RAPID 2021-11-16 23:06:00 Javan Sweeney [facility] TESTING) Medical [place] [facility] ONLY COVID 2021-11-16 23:06:00 Javan Sweeney [facility] INTERPRETATION [facility] CONSENT/REFUSAL FOR 2021-11-16 22:25:40 Doctor Unassigned, [facility] DIAGNOSIS AND TREATMENT [place] [facility] NOTICE OF PRIVACY 2021-11-16 22:24:32 Doctor Unassigned, [facility] PRACTICES [place] [facility] IMMTRAC2 CONSENT 2021-10-27 06:01:00 Doctor Unassigned, [facility] [place] [facility] Encounters Start End Encounter Admission Attending Care Care Encounter Source Date/Time Date/Time Type Type Clinicians Facility Department ID 2021-11-23 2021-11-23 Transition ZENON Tubbs [id number] Univers 00:00:00 00:00:00 of Care Angelika LAMAS [id number] [facility] [id number] [facility] [id number] [place] [address] Branch 2021-11-16 2021-11-22 Inpatient X NICK ADDISON [facility] [place] [id number] Univers 16:45:00 16:48:00 [facility] 2021-11-16 2021-11-22 [facility] Javan Sweeney [id number]. [id number] Univers 16:45:00 16:48:00 Encounter Gelacio Clayton 350.1.1 3.10 [facility] [id number] Lencho De Leon [id number] Medical 096 Branch 2021-10-27 2021-10-27 Nurse Therapy, Adc Covid Infusion [facility] [id number] Univers 16:00:00 17:00:00 Visit Archie Ramsey [id number] ity of [place] 4.2.7.2.686 [place] SURGICAL [id number] [place] [id number] Branch 2021-10-27 2021-10-27 Outpatient R BRAULIO [facility] [id number] Univers 16:00:00 16:00:00 ARCHIE ity of [facility] 2021-10-27 2021-10-27 Orders Doctor LALO [id number] Univers 00:00:00 00:00:00 Only Unassigned, SHAHRIAR [id number] ity of [place] [facility] 4.2.7.2.686 Brend[place] as [id number] [address] Results Test Description Test Time Test Comments Results Result Comments Source Blood Culture - Peripheral # 1 2021-11-22 00:01:47 Test Item Value Reference Range Interpretation Comme nts Blood Culture-Aerobic (test No organisms isolated No growth Previous preliminary code = 32399-0) verified res ult was Culture In Prog [...] ho urs on 11/19/2021 at 180 1 STOCK CLERK Blood Culture-Anaerobic No organisms isolated No growth Previous preliminary (test code = 92283-7) verifi ed result was Culture In Prog [...] ho urs on 11/19/2021 at 180 1 STOCK CLERK Lab Interpretation (test Normal code = 21423-6) [facility] - Peripheral # [id number] 00:01:47 Test Item Value Reference Range Interpretation Comments Blood Culture-Aerobic No organisms No growth Previo us (test code = 21012-6) isolated prelim inary verified result was Culture In Progress on 11/16/2021 at 210 1 CSTPrevious preliminary verified result was No growth a t 24 hours on 11/17/2021 at 180 1 CSTPrevious preliminary verified result was No growth a t 48 hours on 11/18/2021 at 180 1 CSTPrevious preliminary verified result was No growth a t 72 hours on 11/19/2021 at 180 1 STOCK CLERK Blood No organisms No growth Previous Culture-Anaerobic isolated preliminar y (test code = 75137-8) verifi ed result was Culture In Progress on 11/16/2021 at 210 1 CSTPrevious preliminary verified result was No growth a t 24 hours on 11/17/2021 at 180 1 CSTPrevious preliminary verified result was No growth a t 48 hours on 11/18/2021 at 180 1 CSTPrevious preliminary verified result was No growth a t 72 hours on 11/19/2021 at 180 1 STOCK CLERK Lab Interpretation Normal (test code = 19757-8) [facility] VIRUS (HCV) BY QUANTITATIVE NAAT 2021-11-20 21:17:20 Test Item Value Reference Range Interpretation Comments HCV Quantitative NAAT <1.00 Not Detected log - log IU/mL (test code IU/mL = 56156-8) HCV Quantitative NAAT <10 Not Detected - IU/mL (test code = IU/mL 44351-0) HCV Quantitative Detected, not Not Detected A Interpretation (test Quantifiable code = 4937255729) STAR (test code = STAR) The Aptima HCV Quant Dx assay is an FDA-approved real-time nursery hand-mediated amplification (TMA) test used for both detection [...] indicated. Lab Interpretation Abnormal (test code = 15307-8) [facility]ANT[facility]-TB [id number] 19:50:52 Test Item Value Reference Range Interpretation Comments Nil (test code = IU/mL 37515-0) TB1 minus Nil (test IU/mL code = 08077-3) TB2 minus Nil (test IU/mL code = 2902717611) Mitogen minus Nil IU/mL (test code = 87036-3) QFT Gold Plus Negative Negative Result (test code = 96162-2) STAR (test code = The QuantiFERON? TB [...] advised. For further information, refer to http://www.cdc.gov/mmwr/pd f/rr/oz3610.pdf and https://doi.org/10.1093/ci d/xrk237. [facility]. METABOLIC PANEL (29672)2021-11-20 13:01:28 Test Item Value Reference Range Interpretation Comments NA (test code = 135 mmol/L 135-145 0870980897) K (test code = 4.4 mmol/L 3.5-5.0 4924994411) CL (test code = 102 mmol/L 98-108 8631078779) CO2 TOTAL (test code = 29 mmol/L 23-31 1279488427) AGAP (test code = 2-16 1543773968) BUN (test code = 10 mg/dL 7-23 2506432525) GLUCOSE (test code = 86 mg/dL 70-110 7660364219) CREATININE (test code = 0.67 mg/dL 0.60-1.25 3205196611) TOTAL BILI (test code = 2.1 mg/dL 0.1-1.1 H 5475604002) CALCIUM (test code = 8.2 mg/dL 8.6-10.6 L 9048576827) T PROTEIN (test code = 7.4 g/dL 6.3-8.2 8304229246) ALBUMIN (test code = 3.2 g/dL 3.5-5.0 L 8223374393) ALK PHOS (test code = 443 U/L 34-122 H 4994804155) ALTv (test code = 120 U/L 5-50 H 1742-6) AST(SGOT) (test code = 107 U/L 13-40 H 8241141146) eGFR (test code = mL/min/1.73m2 2551696023) STAR (test code = STAR) Association of [...] tests). Lab Interpretation Abnormal (test code = 66679-1) [facility]ie[facility]ph[facility] Fever Ab, [id number] 04:58:33 Test Item Value Reference Range Interpretation [...] days for andrez red testing.Perform ed By: [employer] [place] [address] [id number] Director: Yola Agustin MD [Automated mess age] The system which ge nerated this result transmit janey reference range: <1:64. T he reference range was not u sed to interpret this result as normal/abnormal . [facility] VIRUS (HBV) BY QUANTITATIVE NAAT 2021-11-19 22:42:32 Test Item Value Reference Range Interpretation Comments HBV Quantitative NAAT Not Detected log - log IU/mL (test code IU/mL = 3339859724) HBV Quantitative NAAT Not Detected IU/ml (test code = IU/mL 50273-4) HBV Quantitative Detected Not Detected A Interpretation (test code = 11165-1) STAR (test code = STAR) The Aptima [...] indicated. Lab Interpretation Abnormal (test code = 82062-0) [facility] METABOLIC PANEL ([id number])2021-11-19 12:29:46 Test Item Value Reference Range Interpretation Comments NA (test code = 131 mmol/L 135-145 L 5770383808) K (test code = 4.1 mmol/L 3.5-5.0 1892867131) CL (test code = 98 mmol/L 98-108 2966614170) CO2 TOTAL (test code = 27 mmol/L 23-31 4935648659) AGAP (test code = 2-16 3485041930) BUN (test code = 9 mg/dL 7-23 0573898696) GLUCOSE (test code = 90 mg/dL 70-110 2659212757) CREATININE (test code = 0.79 mg/dL 0.60-1.25 9521622304) TOTAL BILI (test code = 2.3 mg/dL 0.1-1.1 H 3563365051) CALCIUM (test code = 8.1 mg/dL 8.6-10.6 L 3946032067) T PROTEIN (test code = 7.7 g/dL 6.3-8.2 5469263559) ALBUMIN (test code = 3.3 g/dL 3.5-5.0 L 2902592278) ALK PHOS (test code = 508 U/L 34-122 H 5673341664) ALTv (test code = 138 U/L 5-50 H 1742-6) AST(SGOT) (test code = 121 U/L 13-40 H 5275388611) eGFR (test code = mL/min/1.73m2 0354849067) STAR (test code = STAR) Association of [...] tests). Lab Interpretation Abnormal (test code = 46870-3) [facility] WITH [id number] 12:04:01 Test Item Value Reference Range Interpretation Comments WBC (test code = See_Comment [Automated 1490-2) message] The sy stem which generated this result transmitted reference range : 4.20 - 10.70 10*3/?L. The reference range was not used to interpret this result as normal/abnormal . RBC (test code = See_Comment L [Automated 669-8) message] The sy stem which generated this [...] (test code = 55.9 fL 38.5-51.6 H 45899-8) RDW-CV (test code = 17.0 % 12.1-15.4 H 788-0) PLT (test code = See_Comment H [Automated 777-3) message] The sy stem which generated this result transmitted reference range : 150 - 328 10*3/ ?L. The reference r jalyn was not used to interpret this result as normal/abnormal . MPV (test code = 9.5 fL 9.8-13.0 L 95146-7) NRBC/100 WBC (test See_Comment [Automat ed code = 1080732202) message] The system which generated this result transmitted reference range : 0.0 - 10.0 /100 WBCs. The refer ence range was not u sed to interpret th is result as normal/abnormal . NRBC x10^3 (test code <0.01 See_Comment [Auto mated = 7244393981) message] The s ystem which generated this result transmitted reference range : 10*3/?L. The reference range was not used to interpret this result as normal/abnormal . GRAN MAT (NEUT) % 77.6 % (test code = 770-8) IMM GRAN % (test code 0.90 % = 6342024550) LYMPH % (test code = 9.7 % 736-9) MONO % (test code = 9.5 % 5905-5) EOS % (test code = 1.8 % 713-8) BASO % (test code = 0.5 % 706-2) GRAN MAT x10^3(ANC) 5.99 10*3/uL 1.99-6.95 (test code = 3555007193) IMM GRAN x10^3 (test 0.07 10*3/uL 0.00-0.06 H code = 8059147009) LYMPH x10^3 (test code 0.75 10*3/uL 1.09-3.23 L = 731-0) MONO x10^3 (test code 0.73 10*3/uL 0.36-1.02 = 742-7) EOS x10^3 (test code = 0.14 10*3/uL 0.06-0.53 711-2) BASO x10^3 (test code 0.04 10*3/uL 0.01-0.09 = 704-7) Lab Interpretation Abnormal (test code = 70789-0) [facility]CMV BY [id number] 21:33:53 Test Item Value Reference Range Interpretation Comments Specimen Tested Plasma (test code = 0151158234) CMV PCR - log <2.5 See_Comment [Automated IU/mL (test message] The code = 04609-1) system which generated this result transmitted reference range : <2.5 log IU/mL. The reference range was not used to interpr et this result as normal/abnormal . CMV PCR - IU/mL <300 See_Comment [Automated (test code = message] The 46801-9) system which generated this result transmitted reference range : <300 IU/mL. The reference range was not used to interpret this result as normal/abnormal . CMV PCR - log <2.7 See_Comment [Automated copies/mL (test message] The code = 45907-5) system which generated this result transmitted reference range : <2.7 log copies/mL. The reference range was not used to interpret this result as normal/abnormal . CMV PCR - <516 See_Comment [Automated copies/mL (test message] The code = 88793-4) system which generated this result transmitted reference [...] This is a laboratory-developed test using a ballistics expert labeled ASR (Analyte Specific Reagent) as the reagent providing the specificity of the assay. ?This test was developed and its performance characteristics determined by [facility] Clinical Microbiology Laboratory. It has not been [...] to perform high complexity clinical laboratory testing. [facility]achieHAPTOGLOBIN, [id number] 19:59:34 Test Item Value Reference Range Interpretation Comments HAPTOGLOB (test code = 0190936686) 234 mg/dL 16-200 H Lab Interpretation (test code = Abnormal 33305-3) [facility]ieFERRITIN [id number] 17:58:12 Test Item Value Reference Range Interpretation Comments FERRITIN (test code = 135.0 ng/mL 18.0-464.0 1431059372) STAR (test code = STAR) Biotin has been reported to cause a negative bias, interpret results relative to patient's use of biotin. Lab Interpretation (test Normal code = 64591-1) [facility]ieIRON2022-01-07 17:19:26 Test Item Value Reference Range Interpretation Comments IRON (test code = 1955390603) 50 ug/dL 50-160 Lab Interpretation (test code = Normal 25298-6) [facility]. METABOLIC PANEL (71748)2021-11-18 11:54:31 Test Item Value Reference Range Interpretation Comments NA (test code = 132 mmol/L 135-145 L 7856035102) K (test code = 3.6 mmol/L 3.5-5.0 8097824122) CL (test code = 101 mmol/L 98-108 3524209014) CO2 TOTAL (test code = 24 mmol/L 23-31 8264237931) AGAP (test code = 2-16 7226583341) BUN (test code = 8 mg/dL 7-23 2878706057) GLUCOSE (test code = 115 mg/dL 70-110 H 0621947950) CREATININE (test code = 0.75 mg/dL 0.60-1.25 8381111843) TOTAL BILI (test code = 1.8 mg/dL 0.1-1.1 H 0017737169) CALCIUM (test code = 7.9 mg/dL 8.6-10.6 L 5806084157) T PROTEIN (test code = 7.2 g/dL 6.3-8.2 9231105762) ALBUMIN (test code = 3.1 g/dL 3.5-5.0 L 5598785638) ALK PHOS (test code = 471 U/L 34-122 H 3929070408) ALTv (test code = 128 U/L 5-50 H 1742-6) AST(SGOT) (test code = 104 U/L 13-40 H 9313312837) eGFR (test code = mL/min/1.73m2 5687592783) STAR (test code = STAR) Association of [...] tests). Lab Interpretation Abnormal (test code = 66744-7) [facility] [id number] 11:54:31 Test Item Value Reference Range Interpretation Comments BILI CONJ (test code = 8239990159) 0.1 mg/dL 0.0-0.3 BILI UNCON (test code = 6669412609) 0.5 mg/dL 0.1-1.1 Lab Interpretation (test code = Normal 89628-4) [facility] WITH [id number] 11:27:05 Test Item Value Reference Range Interpretation Comments WBC (test code = See_Comment [Automated 2290-2) message] The sy stem which generated this result transmitted reference range : 4.20 - 10.70 10*3/?L. The reference range was not used to interpret this result as normal/abnormal . RBC (test code = See_Comment L [Automated 499-8) message] The sy stem which generated this [...] (test code = 55.4 fL 38.5-51.6 H 21307-5) RDW-CV (test code = 17.0 % 12.1-15.4 H 788-0) PLT (test code = See_Comment H [Automated 777-3) message] The sy stem which generated this result transmitted reference range : 150 - 328 10*3/ ?L. The reference r jalyn was not used to interpret this result as normal/abnormal . MPV (test code = 9.3 fL 9.8-13.0 L 39981-5) NRBC/100 WBC (test See_Comment [Automat ed code = 0622974109) message] The system which generated this result transmitted reference range : 0.0 - 10.0 /100 WBCs. The refer ence range was not u sed to interpret th is result as normal/abnormal . NRBC x10^3 (test code <0.01 See_Comment [Auto mated = 6598364381) message] The s ystem which generated this result transmitted reference range : 10*3/?L. The reference range was not used to interpret this result as normal/abnormal . GRAN MAT (NEUT) % 66.5 % (test code = 770-8) IMM GRAN % (test code 1.70 % = 5054675323) LYMPH % (test code = 14.9 % 736-9) MONO % (test code = 14.3 % 5905-5) EOS % (test code = 1.9 % 713-8) BASO % (test code = 0.7 % 706-2) GRAN MAT x10^3(ANC) 4.99 10*3/uL 1.99-6.95 (test code = 4392032892) IMM GRAN x10^3 (test 0.13 10*3/uL 0.00-0.06 H code = 6547364089) LYMPH x10^3 (test code 1.12 10*3/uL 1.09-3.23 = 731-0) MONO x10^3 (test code 1.07 10*3/uL 0.36-1.02 H = 742-7) EOS x10^3 (test code = 0.14 10*3/uL 0.06-0.53 711-2) BASO x10^3 (test code 0.05 10*3/uL 0.01-0.09 = 704-7) Lab Interpretation Abnormal (test code = 57880-7) [facility]ieC-REACTIVE [id number] 20:30:26 Test Item Value Reference Range Interpretation Comments CRP (test code = 5400374341) 8.4 mg/dL <0.8 H Lab Interpretation (test code = Abnormal 83663-9) [facility]achieT. PALLIDUM PARTICLE [id number] 20:05:03 Test Item Value Reference Range Interpretation Comments T. pallidum Particle Reactive Nonreactive A Agglutination (test code = 7920982365) STAR (test code = STAR) Based on IgG/IgM, RPR, and TPPA results, probable active T. pallidum infection. ? Lab Interpretation (test Abnormal code = 17683-5) [facility]achieRPR (QUANTITATIVE)2021-11-17 19:56:12 Test Item Value Reference Range Interpretation Comments RPR (Quantitative) (test code = 1:256 Nonreactive A 39640-6) Lab Interpretation (test code = Abnormal 48177-3) [facility]ieDIFF CONSULT [id number] 19:03:09 LEUKOCYTES ARE UNREMARKABLE. FEW REACTIVE LYMPHOCYTES IDENTIFIED. MILD NORMOCYTIC NORMOCHROMIC ANEMIA. PLATELETS ARE UNREMARKABLE.[facility]ieGALV ONLY - SYPHILIS [id number] 16:58:56 Test Item Value Reference Range Interpretation Comments Syphilis IgG/IgM (test Reactive Non-reactive A code = 30894-9) STAR (test code = STAR) Non-reactive - No serologic evidence of T. pallidum infection. Cannot exclude incubating or early syphilis. Submit a second specimen in 2-4 weeks if syphilis is clinically suspected. Equivocal - Further testing to follow. Reactive - Further testing to follow. Lab Interpretation (test Abnormal code = 48676-1) [facility]achieHCV [id number] 15:42:39 Test Item Value Reference Range Interpretation Comments HCV Ab (test code = Positive 78981-1) HCV Semi-Quantitative (test code = 77329-3) APRI (test code = 8661612286) STAR (test code = Positive for HCV antibody STAR) with a high signal to cutoff ratio (s/c). ?Supplementary test for Hepatitis C Virus RNA Real-Time PCR is recommended if clinically indicated. ?If any questions, please contact Clinical Chemistry Director production department supervisor at [phone].APRI score < 0.5: Suggestive of little to no fibrosisAPRI score > 1.5: Suggestive of moderate to severe fibrosisAPRI score > 2.0: Highly suggestive of cirrhosis. [facility] WITH [id number] 14:43:40 Test Item Value Reference Range Interpretation [...] (test code = 57.9 fL 38.5-51.6 H 34801-2) RDW-CV (test code = 18.0 % 12.1-15.4 H 788-0) PLT (test code = See_Comment [Automated 777-3) message] The sy stem which generated this result transmitted reference range : 150 - 328 10*3/ ?L. The reference r jalyn was not used to interpret this result as normal/abnormal . MPV (test code = 10.8 fL 9.8-13.0 28051-5) NRBC/100 WBC (test See_Comment [Automat ed code = 8636067165) message] The system which generated this result transmitted reference range : 0.0 - 10.0 /100 WBCs. The refer ence range was not u sed to interpret th is result as normal/abnormal . NRBC x10^3 (test code <0.01 See_Comment [Auto mated = 8555681789) message] The s ystem which generated this result transmitted reference range : 10*3/?L. The reference range was not used to interpret this result as normal/abnormal . GRAN MAT (NEUT) % 68.8 % (test code = 770-8) IMM GRAN % (test code 1.20 % = 7482837943) LYMPH % (test code = 16.6 % 736-9) MONO % (test code = 11.0 % 5905-5) EOS % (test code = 1.6 % 713-8) BASO % (test code = 0.8 % 706-2) GRAN MAT x10^3(ANC) 5.06 10*3/uL 1.99-6.95 (test code = 7297321017) IMM GRAN x10^3 (test 0.09 10*3/uL 0.00-0.06 H code = 8138087036) LYMPH x10^3 (test code 1.22 10*3/uL 1.09-3.23 = 731-0) MONO x10^3 (test code 0.81 10*3/uL 0.36-1.02 = 742-7) EOS x10^3 (test code = 0.12 10*3/uL 0.06-0.53 711-2) BASO x10^3 (test code 0.06 10*3/uL 0.01-0.09 = 704-7) Lab Interpretation Abnormal (test code = 97077-4) [facility]ieHEPATITIS B SURFACE [id number] 11:33:57 Test Item Value Reference Range Interpretation Comments HBsAB (test code = Negative 1968396237) HBsAb mIU/mL Semi-Quantitative (test code = 2382829247) STAR (test code = Interpretation: STAR) ?Hepatitis B Surface Antibody ? Negative - Patient is considered to be not immune to infection with HBV. ? ? Positive - Anti-HBs detected at greater than or equal to 12 mIU/mL. ?Patient is considered to be immune to infection with HBV. ? [facility]ieHECOMM[facility]UL[facility] B CORE ANTIBODY [id number] 10:57:13 Test Item Value Reference Range Interpretation Comments HBCM Negative Semi-Quantitative (test code = 07833-8) STAR (test code = Biotin has been reported STAR) to cause a negative bias, interpret results relative to patient's use of biotin. [facility]ieHESA[facility] STERLINGTIS A VIRUS ANTIBODY [id number] 10:57:13 Test Item Value Reference Range Interpretation Comments HAVM Negative Semi-Quantitative (test code = 79635-8) STAR (test code = HAVAb IgM Interpretative STAR) Information: Reactive greater than or equal to 1.2 Biotin has been reported to cause a negative bias, interpret results relative to patient's use of biotin. [facility] B SURFACE [id number] 10:52:05 Test Item Value Reference Range Interpretation Comments HBsAg Semi-Quantitative (test code = Positive Negative A 5195-3) Lab Interpretation (test code = Abnormal 63932-7) [facility]achieSEDIMENTATION [id number] 10:30:25 Test Item Value Reference Range Interpretation Comments ESR (test code = See_Comment H [Automated message] 1529574962) The system SMRxT generated this result transmitted ref erence range: 0 - 10 m m/HR. The reference r jalyn was not used to interpret this result as normal/abnor mal. Lab Interpretation (test Abnormal code = 49115-9) [facility]ieHIV 1/2 AG-AB WITH [id number] 10:27:44 Test Item Value Reference Range Interpretation Comments HIV Negative Negative Semi-quantitative (test code = 31295-8) STAR (test code = Non-reactive for HIV-1 STAR) antigen and HIV-1/HIV-2 antibodies. ?No laboratory evidence of HIV infection. ?Repeat in 2-4 weeks if acute HIV infection is suspected. [facility]ieHEPATIC FUNCTION PANEL (62342) (ALB,T.PRO,BILI T,BU/BC,ALT,AST,ALK PHOS)2021-11-17 10:06:02 Test Item Value Reference Range Interpretation Comments TOTAL BILI (test code = 1643616397) 2.1 mg/dL 0.1-1.1 H BILI UNCON (test code = 3505901934) 0.5 mg/dL 0.1-1.1 BILI CONJ (test code = 9272501763) 0.4 mg/dL 0.0-0.3 H T PROTEIN (test code = 4953127498) 7.7 g/dL 6.3-8.2 ALBUMIN (test code = 5418077950) 3.3 g/dL 3.5-5.0 L ALK PHOS (test code = 7495030177) 544 U/L 34-122 H ALTv (test code = 1742-6) 150 U/L 5-50 H AST(SGOT) (test code = 0358682078) 153 U/L 13-40 H Lab Interpretation (test code = Abnormal 88413-1) [facility] METABOLIC PANEL (NA, K, CL, CO2, GLUCOSE, BUN, CREATININE, CA)2021-11-17 10:06:02 Test Item Value Reference Range Interpretation Comments NA (test code = 136 mmol/L 135-145 9966080124) K (test code = 4.2 mmol/L 3.5-5.0 6492468567) CL (test code = 106 mmol/L 98-108 4805378448) CO2 TOTAL (test code = 23 mmol/L 23-31 5769686641) AGAP (test code = 2-16 3761008919) BUN (test code = 10 mg/dL 7-23 2443596948) GLUCOSE (test code = 74 mg/dL 70-110 9386791608) CREATININE (test code = 0.78 mg/dL 0.60-1.25 8461598815) CALCIUM (test code = 7.9 mg/dL 8.6-10.6 L 5203458916) eGFR (test code = mL/min/1.73m2 4384821334) STAR (test code = STAR) Association of [...] tests). Lab Interpretation Abnormal (test code = 59461-6) [facility]achieD-[id number] 09:54:02 Test Item Value Reference Interpretation Comments Range D-DIMER (test code = See_Comment H [Autom ated 0110701817) message] The system which generated this result [...] diagnosis. Lab Interpretation Abnormal (test code = 58620-5) [facility]achieCREATINE [id number] 09:42:22 Test Item Value Reference Range Interpretation Comments CK (test code = 0541969261) <20 33-194 L Lab Interpretation (test code = Abnormal 45075-7) [facility]achieTHYROID STIMULATING [id number] 08:58:33 Test Item Value Reference Range Interpretation Comments TSH (test code = See_Comment [Automated message] 9890641420) The system SMRxT generated this result transmitted ref erence range: 0.45 - 4 .70 mIU/L. The refe rence range was not u sed to interpret this result as normal/abnor mal. Lab Interpretation (test Normal code = 88050-3) [facility]achieN-TERMINAL [id number] 08:37:09 Test Item Value Reference Range Interpretation Comments NT-proBNP (test code 373 pg/mL See_Comment H [Autom ated = 6369211719) message] The system which generated this result transmitted reference range : <=125. The reference range was not used to interpret this result as normal/abnormal . STAR (test code = STAR) Biotin has been reported to cause a negative bias, interpret results relative to patient's use of biotin. Lab Interpretation Abnormal (test code = 15821-4) [facility]ieETHANOL2022-01-06 08:34:12 Test Item Value Reference Range Interpretation Comments ALCOHOL (test code = <10 mg/dL 1075654279) STAR (test code = Toxic Greater than or STAR) equal to 80 mg/dL. NOTE: Whole blood values are approximately 10% to 15% lower than serum and plasma. [facility]achieACETAMINOPHEN2022-01-06 08:34:02 Test Item Value Reference Range Interpretation Comments ACETAMINOP (test code = <10.0 10.0-30.0 L 0233083006) STAR (test code = STAR) Toxic: Greater than 200 ug/mL @ 4 hour post ingestion or greater than 50 ug/mL @ 12 hour post ingestion Lab Interpretation (test Abnormal code = 49255-5) [facility]achieLIPASE2022-01-06 02:53:35 Test Item Value Reference Range Interpretation Comments LIPASE (test code = 5555520025) 160 U/L 0-220 Lab Interpretation (test code = Normal 85193-0) [facility]achieEBV-MONONUCLEOSIS [id number] 02:03:45 Test Item Value Reference Range Interpretation Comments EBV Mononucleosis Screen (test code Negative Negative = 4695689901) Lab Interpretation (test code = Normal 85719-4) [facility]achieTROPONIN [id number] 23:56:57 Test Item Value Reference Interpretation Comments Range TROPONIN I (test 0.001 ng/mL See_Comment [Automated code = 6075828564) message] The system which generated this result [...] biotin. Lab Interpretation Normal (test code = 14766-5) [facility]. METABOLIC PANEL (65758)2021-11-16 23:45:32 Test Item Value Reference Range Interpretation Comments NA (test code = 133 mmol/L 135-145 L 6399922012) K (test code = 4.3 mmol/L 3.5-5.0 6740473643) CL (test code = 102 mmol/L 98-108 7951666946) CO2 TOTAL (test code = 23 mmol/L 23-31 5757186301) AGAP (test code = 2-16 6632741625) BUN (test code = 14 mg/dL 7-23 6861419854) GLUCOSE (test code = 112 mg/dL 70-110 H 5452619835) CREATININE (test code = 0.74 mg/dL 0.60-1.25 3104048066) TOTAL BILI (test code = 1.2 mg/dL 0.1-1.1 H 8665327740) CALCIUM (test code = 7.9 mg/dL 8.6-10.6 L 8383515454) T PROTEIN (test code = 7.4 g/dL 6.3-8.2 5489465572) ALBUMIN (test code = 3.2 g/dL 3.5-5.0 L 6260575579) ALK PHOS (test code = 602 U/L 34-122 H 0683705399) ALTv (test code = 154 U/L 5-50 H 1742-6) AST(SGOT) (test code = 207 U/L 13-40 H 9937569999) eGFR (test code = mL/min/1.73m2 1209892457) STAR (test code = STAR) Association of [...] tests). Lab Interpretation Abnormal (test code = 79683-1) [facility] WITH [id number] 23:28:46 Test Item Value Reference Range Interpretation [...] (test code = 59.5 fL 38.5-51.6 H 29689-2) RDW-CV (test code = 17.9 % 12.1-15.4 H 788-0) PLT (test code = See_Comment H [Automated 777-3) message] The sy stem which generated this result transmitted reference range : 150 - 328 10*3/ ?L. The reference r jalyn was not used to interpret this result as normal/abnormal . MPV (test code = 9.8 fL 9.8-13.0 55161-8) NRBC/100 WBC (test See_Comment [Automat ed code = 5367981064) message] The system which generated this result transmitted reference range : 0.0 - 10.0 /100 WBCs. The refer ence range was not u sed to interpret th is result as normal/abnormal . NRBC x10^3 (test code <0.01 See_Comment [Auto mated = 0345518022) message] The s ystem which generated this result transmitted reference range : 10*3/?L. The reference range was not used to interpret this result as normal/abnormal . GRAN MAT (NEUT) % 74.8 % (test code = 770-8) IMM GRAN % (test code 1.20 % = 1129168305) LYMPH % (test code = 13.3 % 736-9) MONO % (test code = 8.4 % 5905-5) EOS % (test code = 1.5 % 713-8) BASO % (test code = 0.8 % 706-2) GRAN MAT x10^3(ANC) 5.58 10*3/uL 1.99-6.95 (test code = 8877907356) IMM GRAN x10^3 (test 0.09 10*3/uL 0.00-0.06 H code = 0532301266) LYMPH x10^3 (test code 0.99 10*3/uL 1.09-3.23 L = 731-0) MONO x10^3 (test code 0.63 10*3/uL 0.36-1.02 = 742-7) EOS x10^3 (test code = 0.11 10*3/uL 0.06-0.53 711-2) BASO x10^3 (test code 0.06 10*3/uL 0.01-0.09 = 704-7) Lab Interpretation Abnormal (test code = 23591-0) [facility]
[2022-02-28 06:57] LABS: Absolute Lymphocytes (CBC) 0.4 K/uL (0.7-4.9); Hematocrit 37.7 % (39.6-49.0); Lymphocytes % 5.1 % (15.3-44.8); MPV 7.8 fL (7.6-11.3); Protime INR 1.13; RBC Red Blood Cell Count 4.25 M/uL (4.33-5.43)
[2022-02-28 07:10] LABS: BUN Blood Urea Nitrogen 7 mg/dL (7-18); Bicarbonate 27 mmol/L (21-32); Glucose Level 137 mg/dL (74-106); Potassium 4.1 mmol/L (3.5-5.1); Sodium Level 136 mmol/L (136-145)
[2022-02-28] MEDS ORDERED: ONDANSETRON 4 MG/2 ML VIAL ONE (08:16)
[2022-02-28] MEDS ORDERED: NA CHLORIDE 0.9% 1,000 ML ONE (08:16)
[2022-02-28] MEDS ORDERED: MORPHINE 4 MG/ML SYR ONE (08:16)
--- NOTE | 2022-02-28 08:26 | RAD REPORT ---
EXAM DESCRIPTION: CT - CTHCSPWOC - 02/28/2022 7:16 am CLINICAL HISTORY: Trauma, head and neck injury. head injury COMPARISON: Head C Spine Mpr Wo Con dated 02/24/2022; Soft Tissue Neck W/Contr dated 11/13/2021 TECHNIQUE: Axial 5 mm thick images of the head were obtained. Axial 2 mm thick images of the cervical spine were obtained with sagittal and coronal reconstruction images generated and reviewed. All CT scans are performed using dose optimization technique as appropriate and may include automated exposure control or mA/KV adjustment according to patient size. FINDINGS: CT HEAD WITHOUT CONTRAST: Again noted is a acute hematoma in the right middle cranial fossa anteriorly measuring 14 mm in thick ness. Along the inferior margin additional areas of hemorrhage are present in the anterior right temp oral lobe measuring up to 7 mm. This appears similar to comparative study.There continues to be sligh t right to left midline shift is 3-4 mm. Fracture of the right petrous temporal bone extending to the skullbase again seen. Facial bone fracture is again present and noted in along with mild hemorrhagic material noted in the right maxillary antrum. CT CERVICAL SPINE WITHOUT CONTRAST: No fracture or subluxation.No prevertebral soft tissues swelling is identified. IMPRESSION: No new traumatic finding is suspected since the 02/24/2022 prior study.Hematoma anterior right temporal tip is again seen with slight right to left midline shift again noted. Extensive facial fractures and right temporal bone fractures unchanged.
--- NOTE | 2022-02-28 08:27 | RAD REPORT ---
EXAM DESCRIPTION: US - UPPER EXTREMITY VENOUS UNILATE - 02/28/2022 7:07 am CLINICAL HISTORY: Pain Arm pain and swelling COMPARISON: No comparisons FINDINGS: Left upper extremity venous system was interrogated with Doppler technique. Thrombus is no janey in the left basilic vein. Elsewhere, no left upper extremity DVT seen IMPRESSION: Positive for thrombus in the left basilic vein.
[2022-02-28 08:49] LABS: Blood Morphology Comment NOT SEEN (NOT SEEN); Platelet Estimate ADEQ
--- NOTE | 2022-02-28 08:55 | RAD REPORT ---
EXAM DESCRIPTION: RAD - Forearm Left - 02/28/2022 6:42 am CLINICAL HISTORY: SWELLING Pain and swelling COMPARISON: No comparisons FINDINGS: No fracture or dislocation is seen.
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
[2022-02-28 14:49] VITALS: TEMP 98.9
[2022-02-28 14:51] VITALS: BP 127/75; O2SAT 99
== END 2022-02-28 10:26 | disposition home or self-care (01) ==
LOC: ER 05:48
DX: I80.8 Phlebitis and thrombophlebitis of other sites (principal); F17.210 Nicotine dependence, cigarettes, uncomplicated
CPT/HCPCS: 36415; 70450; 72125; 80048; 85025; 85610; 93971; 96374; 96375; 99284; J2405; J7030

== ENCOUNTER 2022-03-03 07:48 | Inpatient (IN) | payer SELFPAY ==
--- OUTSIDE RECORDS SUMMARY | 2022-03-03 07:52 | XMS REPORT | Continuity of Care Document ---
:1990 Author Organization [facility] t Address 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 00:00: [place] 00 [facility] Chronic Chronic Disease Active [facility] hepatitis hepatitis 11-18 ity of C without C without 00:00: [place] hepatic hepatic [facility] coma coma Branch Reactive Reactive Disease Active Unive rs cervical cervical 11-17 ity of lymphadeno [place]adeno [place] [facility] Allergies, Adverse Reactions, Alerts Allergy Allergy Status Severity Reaction(s) Onset Inactive Treating Comm ents Source Name Type Date Date Clinician NO KNOWN Drug Active Univers ALLERGIE Class ity of S [facility] Social History Social Habit Start Date Stop Date Quantity Comments Source Exposure to Not sure [facility] SARS-CoV-2 (event) [facility] Sex Assigned At [birth year] [facility] 00:00:00 00:00:00 [facility] Smoking Status Start Date Stop Date Source Unknown if ever smoked [facility] Medications Ordered Filled Start Stop Current Ordering Indication Dosage Frequency Signature Comments Components Source Medication Medication Date Date Medication? Clinician (SIG) Name Name bisacodyL No 10mg 10 mg, Unive rs (DULCOLAX) 11-22 Rectal, ity o f suppository 20:45: 20:55 [place]CE[place] 1 [place] 10 mg 00 :00 dose, On Medical [facility] 11/22/21 at 1445, Routine enoxaparin Yes 40mg 40 mg, Unive rs (LOVENOX) 11-22 Subcutaneo ity of injection 15:00: [place]ILY[place] 40 mg 00 First dose Medical on [facility] 11/22/21 at 0900, Until Discontinu ed, Routine [...] Indication s: acute pain acyclovir 2021- No [id number] 400mg Take 2 Univers 200 mg 11-22 capsules ity of capsule 00:00: 05:59 by mouth [place] 00 :00 every 8 Medical (eight) Branch hours for 5 days. acyclovir 2021- No [id number] 400mg Take 2 Univers 200 mg 11-22 capsules ity of capsule 00:00: 05:59 by mouth [place] 00 :00 every 8 Medical (eight) Branch hours for 5 days. acyclovir 2021- No [id number] 400mg Take 2 Univers 200 mg 11-22 capsules ity of capsule 00:00: 00:00 by mouth [place] 00 :00 every 8 Medical (eight) Branch hours for 7 days. acetaminoph 2021-0 Yes 650mg 650 mg, Un nhi en 1-10 Oral, ity of (TYLENOL) 22:01: Q8HPRN, [place] tablet 650 04 Starting Medic al mg on Sun11/21/21 at 1601, Until Discontinu ed, Routine, Pain (scale 1-3) HYDROcodone 2021-0 Yes 1{tbl} 1 tablet, Univers -acetaminop 1-10 Oral, ity of hen (NORCO 22:00: [facility]6HPRN, [facility]) 5-325 mg 00 Starting Medi jonathan tablet 1 on Sun tablet 11/21/21 at 1600, Until Discontinu ed, Routine, Pain (scale 4-6), Pain (scale 7-10) morpHINE 2021-0 Yes 4mg 4 mg, Slow Uni vers injection 4 1-10 IV Push, ity of mg 22:00: Q4HPRN, [place] 00 Starting Medical on Sun11/21/21 at 1600, Until Discontinu ed, Routine, can give w norco if neccesary for breakthrou gh pain glycerin/mi 2021-0 Yes 225mL 225 mL, Un nhi neral oil 1-10 Rectal, ity of (AGLO 21:58: PRN, [place] ENEMA) 57 Starting Medical (COMPOUNDED on Sun ) Enem 225 11/21/21 at mL 1558, Until Discontinu ed, Routine, Constipati on unresolved by oral medication s magnesium Yes 30mL 30 mL, Univer s hydroxide -10 Oral, BID, ity of (MILK OF 02:00: First dose [place] as MAGNESIA) 00 on [place] [facility] 400 mg/5 mL 11/20/21 at [facility] suspension 2000, 30 mL Until Discontinu ed, Routine bisacodyL 2021- No 10mg 10 mg, Unive rs (DULCOLAX) 11-21- Oral, ity of tablet 10 00:45: 14:11 DAILY, 2 [place] as mg 00 :00 doses, Medical First dose Branch on [place] 11/20/21 at 1845, Last dose on [facility] 11/21/21 at 0900, Routine acyclovir Yes 400mg 400 mg, Univ ers (ZOVIRAX) 09 Oral, Q8H, ity of capsule 400 12:00: First dose [place] mg 00 on Count Includes [facility] 11/20/21 at Branch 0600, Until Discontinu ed, VANGIE doxycycline No 100mg 100 mg, U nivers hyclate 11-2011 Oral, ity of (Vibramycin 12:00: 08:08 Q12HA2, [place] capsule 00 :27 First dose Medi jonathan 100 mg on [facility] 11/20/21 at 0600, Until Discontinu ed, VANGIE
[...] dose [place] 17 g 00 on Sun [facility] 11/18/21 at Branch 1545, Until Discontinu ed, Routine morpHINE 2021- No 6mg 6 mg, Slow Un nhi injection 6 11-1810 IV Push, ity of mg 21:31: 21:58 Q3HPRN, [place] 05 :01 Starting Medical on Sun Branch 11/18/21 at 1531, Until 11/21/21 at 1558, Routine, Pain (scale 4-6), Pain (scale 7-10), can give w norco if neccesary for breakthrou gh pain ondansetron Yes 4mg 4 mg, Slow Univers (ZOFRAN 11-18 IV Push, ity of (PF)) 21:30: Q6HPRN, [place] injection 4 02 Starting Medi jonathan mg on Sun Branch 11/18/21 at 1530, Until Discontinu ed, Routine, Nausea and Vomiting (N/V) morpHINE 2021- No PRN, Univers injection 11-18 Starting ity o f 19:16: 21:29 on Sun [place] 10 :46 11/18/21 at Medical 1316, Branch Until Sun11/18/21 at 1529, Routine tc 2021- No [id number] [facility] 10 [facility] 99m-mebrofe 11-18 millicurie i ty of [...] [place] 5) 5-325 mg 00 :01 on [facility] Medica l tablet 1 11/17/21 at [place] tablet 2044, Until Discontinu ed, Routine morpHINE [...] on [place] Branch 11/17/21 at 1247, Until [facility] 11/17/21 at 2031, Routine, Pain (scale 7-10) acetaminoph 2021- No 650mg 650 mg, U nivers en 11-17 Oral, ity of (TYLENOL) 18:47: 22:01 Q8HPRN, [place] tablet 650 00 :15 Starting Medic al mg on [place] 11/17/21 at 1247, Until [facility] 11/21/21 at 1601, Routine, Pain (scale 1-3), Temp > 38.5 C morpHINE 2021- No 2mg 2 mg, Slow Un nhi injection 2 11-17 IV Push, ity of mg 14:53: 18:47 Q4HPRN, [address] [place] [address] 08 :58 doses, Medical Starting Branch on [place] 11/17/21 at 0853, Until [facility] 11/17/21 at 1247, Routine, Pain (scale [...] on [place] 11/17/21 at 0414, Until [facility] 11/17/21 at 1247, Routine, Pain (scale [...] ity of 1,000 mg in 03:00: 03:53 [place], [place] NaCl 0.9% 00 :00 ONCE, 1 Medical (NS) 250 mL dose, On [facility] VIAL-MATE 11/16/21 IV at 2100, piggyback Administer over 60 Minutes, 250 mL
Reas on for Anti-Infec tive: Empiric Therapy for Suspected Infection< br>Empiric Therapy Site: Blood
D uration of therapy: 72 hours cefTRIAXone No 1000mg 1,000 mg, Univers (ROCEPHIN) 11-17 IV ity of 1,000 mg in 03:00: 03:11 [place], [place] NaCl 0.9% 00 :00 ONCE, 1 Medical (NS) 50 mL dose, On [facility] h MINI-BAG 11/16/21 at 2100, Administer over 30 Minutes, 50 mL
R lynette for Anti-Infec tive: Empiric Therapy for Suspected Infection< br>Empiric Therapy Site: Blood
D uration of therapy: 72 hours iopamidol 2021- No [id number] 100mL 100 mL, Univers (ISOVUE 11-17 Intravenou [...] Sun11/16/21 at 1730, VANGIE casirivimab 2020-11- No [id number] 1200mg 1,200 mg, Univers -imdevimab 12-28 Subcutaneo it y of (REGEN-COV 23:45: 22:33 us, ONCE, [place] (EUA)) 00 :00 1 dose, On Medical injection [place] (CO-FORMULA 10/27/21 TION) 1,200 at 1745, mg Routine Vital Signs Vital Name Observation Time Observation Value Comments Source Systolic blood 2021-11-22 18:00:00 113 mm[Hg] Univer sity of pressure [facility] Diastolic blood 2021-11-22 18:00:00 69 mm[Hg] Unive rsity of pressure [facility] Heart rate 2021-11-22 18:00:00 83 /min Universi ty of [facility] Body temperature 2021-11-22 18:00:00 35.83 Christen Univ ersity of [facility] Oxygen saturation in 2021-11-22 18:00:00 99 /min University of Arterial blood by [place] [employer] jonathan Pulse oximetry Branch Respiratory rate 2021-11-22 09:55:00 16 /min Univ ersity of [facility] Body height 2021-11-17 07:45:00 170.2 cm Universi ty of [facility] Body weight 2021-11-17 07:45:00 65.318 kg Universi ty of [facility] BMI 2021-11-17 07:45:00 22.55 kg/m2 Universi ty of [facility] Systolic blood 2021-10-27 23:18:00 131 mm[Hg] Univer sity of pressure [facility] Diastolic blood 2021-10-27 23:18:00 77 mm[Hg] Unive rsity of pressure [facility] Heart rate 2021-10-27 23:18:00 89 /min Universi ty of [facility] Body temperature 2021-10-27 23:18:00 37.22 Christen Univ ersity of [facility] Respiratory rate 2021-10-27 23:18:00 20 /min Univ ersity of [facility] Oxygen saturation in 2021-10-27 23:18:00 99 /min University of Arterial blood by [place] [employer] jonathan Pulse oximetry Branch Body height 2021-10-27 22:30:00 170.2 cm Universi ty of [facility] Body weight 2021-10-27 22:30:00 61.689 kg Universi ty of [facility] BMI 2021-10-27 22:30:00 21.30 kg/m2 Universi ty of [facility] Procedures Procedure Date / Time Performing Clinician Source Performed XR KUB 2021-11-22 08:53:00 Lisa Fofana o [facility] GC & CHLAMYDIA AMPLIFIED 2021-11-20 16:21:[address] [facility] GC & CHLAMYDIA AMPLIFIED 2021-11-20 16:19:00 FofanaLisa [facility] ASSAY [facility] COMP. METABOLIC PANEL 2021-11-20 12:36:00 Sheaantonio Bita [facility] ([id number]) Medical [place] GC & CHLAMYDIA AMPLIFIED 2021-11-20 07:24:00 FofanaRaymondah [facility] HSV 1&2, VZV NAAT 2021-11-20 07:24:00 Lisa Fofana [facility] US ABDOMEN LIMITED 2021-11-19 15:45:14 [facility] COMP. METABOLIC PANEL 2021-11-19 11:36:00 [id number] CBC WITH DIFF 2021-11-19 11:36:00 [facility] HEPATITIS B VIRUS (HBV) 2021-11-19 11:36:00 [facility] BY QUANTITATIVE NAAT [facility] XR ABDOMEN 2 VW 2021-11-19 01:05:00 [facility] HB ECG ROUTINE & RHYTHM 2021-11-18 23:18:53 [facility] NM HEPATOBILIARY W 2021-11-18 20:00:00 [facility] INTER[facility] FERRITIN SERUM 2021-11-18 11:07:00 [facility] IRON 2021-11-18 11:07:00 [facility] BILI UNCONJUGATED/BILI 2021-11-18 11:07:00 [facility] CON[facility]UG [facility] COMP. METABOLIC PANEL 2021-11-18 11:07:00 [facility] ([id number] CBC WITH DIFF 2021-11-18 11:07:00 [place] f [facility] CEREBROSPINAL FLUID 2021-11-18 03:31:00 Junior Silva [facility] PROTEIN [facility] CEREBROSPINAL FLUID 2021-11-18 03:31:00 Junior Silva [facility] GLUCOSE [facility] BODY FLUID DIRECT COUNT 2021-11-18 03:31:00 Junior Silva [facility] CSF/SHIFT LAB TECHNICIAN SHUNT CULTURE 2021-11-18 03:31:00 Junior Silva [facility] FUNGUS (ROUTINE) CULTURE 2021-11-18 03:31:00 [facility] 2021-11-18 03:31:00 Junior Silva [facility] TRANSTHORACIC ECHO (TTE) 2021-11-17 21:37:48 [facility] [place] CMV BY PCR 2021-11-17 15:25:00 Junior Silva [facility] GALV ONLY - SYPHILIS 2021-11-17 10:00:00 Junior Silva [facility] IGG/IGM [facility] HEPATITIS B SURFACE 2021-11-17 10:00:00 Junior Silva [facility] ANTIBODY [facility] RPR (QUANTITATIVE) 2021-11-17 10:00:00 Junior Silva [facility] MRSA / MSSA SCREEN BY 2021-11-17 09:25:00 Junior Silva [facility] PCR, NARES [facility] THROAT CULTURE 2021-11-17 09:16:00 Junior Silva [facility] HAPTOGLOBIN, SERUM 2021-11-17 09:13:00 [facility] C-REACTIVE PROTEIN 2021-11-17 09:13:00 Junior Silva [facility] HEPATIC FUNCTION PANEL 2021-11-17 09:13:00 Junior Silva [facility] ([id number]) (ALB,T.PRO,BILI [facility] T,BU/BC,ALT,AST,ALK PHOS) BASIC METABOLIC PANEL 2021-11-17 09:13:00 Junior Silva [facility] (NA, K, CL, CO2, GLUCOSE, Medica l Branch BUN, CREATININE, CA) SEDIMENTATION RATE 2021-11-17 09:13:00 Junior Silva [facility] DIFF CONSULT 2021-11-17 09:13:00 [facility] CBC WITH DIFF 2021-11-17 09:13:00 [facility] D-DIMER 2021-11-17 09:13:00 Junior Silva [facility] HEPATITIS B SURFACE 2021-11-17 09:13:00 Junior Silva [facility] ANTIGEN [facility] HCV ANTIBODY 2021-11-17 09:13:00 [facility] HEPATITIS A VIRUS 2021-11-17 09:13:00 Junior Silva [facility] ANTIBODY IGM [facility] HEPATITIS B CORE ANTIBODY 2021-11-17 09:13:00 Junior Silva [facility] IGM [facility] HEPATITIS C VIRUS (HCV) 2021-11-17 09:13:00 Junior Silva [facility] BY QUANTITATIVE NAAT [facility] QUANTIFERON-TB ASSAY 2021-11-17 09:13:00 Junior Silva [facility] TYPHUS FEVER AB, IGM 2021-11-17 09:13:00 Junior Silva [facility] URINE DRUG (IMMUNOASSAY) 2021-11-17 09:00:00 Junior Silva [facility] - COMPREHENSIVE DRUG [facility] SCREEN URINE DRUG (LCMSMS) - 2021-11-17 09:00:00 Junior Silva [facility] SYNTHETIC OPIATES PANEL Medical Branch CT ABDOMEN PELVIS W 2021-11-17 02:22:48 Javan Sweeney [facility] CONTRAST [facility] CT SOFT TISSUE NECK W 2021-11-17 02:22:48 Javan Sweeney [facility] CONTRAST [facility] CT CHEST PULMONARY 2021-11-17 02:22:48 Javan Sweeney [facility] ANGIOGRAM [facility] US GALL BLADDER 2021-11-17 01:24:40 Javan Sweeney [facility] XR CHEST 1 VW 2021-11-17 00:32:07 Javan Sweeney [facility] URINALYSIS 2021-11-16 23:30:00 Javan Sweeney [facility] URINE CULTURE 2021-11-16 23:30:00 Javan Sweeney [facility] HB ECG ROUTINE & RHYTHM 2021-11-16 23:28:50 Javan Sweeney [facility] ASSIGNMENT OF BENEFITS 2021-11-16 23:13:59 Doctor Unassigned, Un [facility] [place] [facility] LACTIC ACID WHOLE BLOOD 2021-11-16 23:08:00 Javan Sweeney [facility] BLOOD CULTURE SCREEN 2021-11-16 23:07:00 [facility] CREATINE KINASE 2021-11-16 23:07:00 Junior Silva [facility] LIPASE 2021-11-16 23:07:00 Dwayne [place] o [place] [facility] TROPONIN I 2021-11-16 23:07:00 Javan Sweeney [facility] THYROID STIMULATING 2021-11-16 23:07:00 Junior Silva [facility] HORMONE [facility] COMP. METABOLIC PANEL 2021-11-16 23:07:00 [facility]ween[facility] ([id number]) [facility] ACETAMINOPHEN 2021-11-16 23:07:00 Junior Silva [facility] ETHANOL 2021-11-16 23:07:00 Junior Silva [facility] CBC WITH DIFF 2021-11-16 23:07:00 Javan Sweeney [facility] EBV-MONONUCLEOSIS SCREEN 2021-11-16 23:07:00 Dwayne Johns [facility] N-TERMINAL PRO-BNP 2021-11-16 23:07:00 Junior Silva [facility] HIV 1/2 AG-AB WITH REFLEX 2021-11-16 23:07:00 Junior Silva [facility] RAPID INFLUENZA A/B 2021-11-16 23:06:00 Javan Sweeney [facility] COVID-19 (ID NOW RAPID 2021-11-16 23:06:00 Javan Sweeney [facility] TESTING) Medical [place] [facility] ONLY COVID 2021-11-16 23:06:00 Javan Sweeney [facility] INTERPRETATION [facility] CONSENT/REFUSAL FOR 2021-11-16 22:25:40 Doctor Unassigned, [facility] DIAGNOSIS AND TREATMENT [place] [facility] NOTICE OF PRIVACY 2021-11-16 22:24:32 Doctor Unassigned, [facility] PRACTICES [place] [facility] [id number] CONSENT 2021-10-27 06:01:00 Doctor Unassigned, [facility] [place] [facility] Encounters Start End Encounter Admission Attending Care Care Encounter Source Date/Time Date/Time Type Type Clinicians Facility Department ID 2021-11-23 2021-11-23 Transition ZENON Tubbs [id number] Univers 00:00:00 00:00:00 of Care Angelika LAMAS [id number] [facility] [id number] [facility] [id number] [place] [address] Branch 2021-11-16 2021-11-22 Inpatient X [place]DIS[place] [facility] [place] [id number] Univers 16:45:00 16:48:00 [place] [facility] 2021-11-16 2021-11-22 [facility] Javan Sweeney [id number] Univers 16:45:00 16:48:00 Encounter Gelacio [place] 350.1.1 3.10 [facility] [id number] Lencho De Leon [id number] Medical 096 Branch 2021-10-27 2021-10-27 Nurse Therapy, Adc Covid Infusion [facility] [id number] Univers 16:00:00 17:00:00 Visit Archie Ramsey [id number] ity of [place] 4[place]2.7.2.686 [place] [id number] [place] [id number] Branch 2021-10-27 2021-10-27 Outpatient R BRAULIO [facility] [id number] Univers 16:00:00 16:00:00 ARCHIE ity of [facility] 2021-10-27 2021-10-27 Orders Doctor LALO [id number] Univers 00:00:00 00:00:00 Only Unassigned, SHAHRIAR [id number] ity of [place] [facility] 4.2.7.2.686 Brendon as [id number] [address] Results Test Description Test Time Test Comments Results Result Comments Source Blood Culture - Peripheral # 1 2021-11-22 00:01:47 Test Item Value Reference Range Interpretation Comme nts Blood Culture-Aerobic (test No organisms isolated No growth Previous preliminary code = 05273-7) verified res ult was Culture In Prog [...] ho urs on 11/19/2021 at 180 1 [employer] Blood Culture-Anaerobic No organisms isolated No growth Previous preliminary (test code = 51284-3) verifi ed result was Culture In Prog [...] ho urs on 11/19/2021 at 180 1 [employer] Lab Interpretation (test Normal code = 05070-0) [facility] # [id number] 00:01:47 Test Item Value Reference Range Interpretation Comments Blood Culture-Aerobic No organisms No growth Previo us (test code = 40325-2) isolated prelim inary verified result was Culture In Progress on 11/16/2021 at 210 1 CSTPrevious preliminary verified result was No growth a t 24 hours on 11/17/2021 at 180 1 CSTPrevious preliminary verified result was No growth a t 48 hours on 11/18/2021 at 180 1 CSTPrevious preliminary verified result was No growth a t 72 hours on 11/19/2021 at 180 1 [employer] Blood No organisms No growth Previous Culture-Anaerobic isolated preliminar y (test code = 32191-9) verifi ed result was Culture In Progress on 11/16/2021 at 210 1 CSTPrevious preliminary verified result was No growth a t 24 hours on 11/17/2021 at 180 1 CSTPrevious preliminary verified result was No growth a t 48 hours on 11/18/2021 at 180 1 CSTPrevious preliminary verified result was No growth a t 72 hours on 11/19/2021 at 180 1 [employer] Lab Interpretation Normal (test code = 34307-1) [facility] (HCV) BY QUANTITATIVE NAAT 2021-11-20 21:17:20 Test Item Value Reference Range Interpretation Comments HCV Quantitative NAAT <1.00 Not Detected log - log IU/mL (test code IU/mL = 88193-6) HCV Quantitative NAAT <10 Not Detected - IU/mL (test code = IU/mL 52179-3) HCV Quantitative Detected, not Not Detected A Interpretation (test Quantifiable code = 9651962750) STAR (test code = STAR) The Aptima HCV Quant Dx assay is an FDA-approved real-time traffic recorder-mediated amplification (TMA) test used for both detection [...] indicated. Lab Interpretation Abnormal (test code = 48357-0) [facility] Center[facility]ANT[facility]-TB [id number] 19:50:52 Test Item Value Reference Range Interpretation Comments Nil (test code = IU/mL 52926-8) TB1 minus Nil (test IU/mL code = 21947-7) TB2 minus Nil (test IU/mL code = 3283202458) Mitogen minus Nil IU/mL (test code = 54538-2) QFT Gold Plus Negative Negative Result (test code = 50604-6) STAR (test code = The QuantiFERON? TB [...] advised. For further information, refer to http://www.cdc.gov/mmwr/pd f/rr/av2677.pdf and https://doi.org/10.1093/ci d/ygd936. [facility] METABOLIC PANEL ([id number])2021-11-20 13:01:28 Test Item Value Reference Range Interpretation Comments NA (test code = 135 mmol/L 135-145 6500665172) K (test code = 4.4 mmol/L 3.5-5.0 8256635569) CL (test code = 102 mmol/L 98-108 1650939992) CO2 TOTAL (test code = 29 mmol/L 23-31 4109677450) AGAP (test code = 2-16 3938781279) BUN (test code = 10 mg/dL 7-23 7425806312) GLUCOSE (test code = 86 mg/dL 70-110 6652011297) CREATININE (test code = 0.67 mg/dL 0.60-1.25 4421874304) TOTAL BILI (test code = 2.1 mg/dL 0.1-1.1 H 9804660585) CALCIUM (test code = 8.2 mg/dL 8.6-10.6 L 4541439771) T PROTEIN (test code = 7.4 g/dL 6.3-8.2 3729540373) ALBUMIN (test code = 3.2 g/dL 3.5-5.0 L 1272856767) ALK PHOS (test code = 443 U/L 34-122 H 4075697972) ALTv (test code = 120 U/L 5-50 H 1742-6) AST(SGOT) (test code = 107 U/L 13-40 H 6579515127) eGFR (test code = mL/min/1.73m2 2155767357) STAR (test code = STAR) Association of [...] tests). Lab Interpretation Abnormal (test code = 87846-6) [facility] CenterTyphus Fever Ab, [id number] 04:58:33 Test Item Value Reference Range Interpretation [...] days for andrez red testing.Perform ed By: [employer] [address] [place] [id number] Director: Yola Agustin MD [Automated mess age] The system which ge nerated this result transmit janey reference range: <1:64. T he reference range was not u sed to interpret this result as normal/abnormal . [facility] VIRUS (HBV) BY QUANTITATIVE NAAT 2021-11-19 22:42:32 Test Item Value Reference Range Interpretation Comments HBV Quantitative NAAT Not Detected log - log IU/mL (test code IU/mL = 3399413084) HBV Quantitative NAAT Not Detected IU/ml (test code = IU/mL 33881-2) HBV Quantitative Detected Not Detected A Interpretation (test code = 28045-1) STAR (test code = STAR) The Aptima [...] indicated. Lab Interpretation Abnormal (test code = 17576-0) [facility] METABOLIC PANEL ([id number])2021-11-19 12:29:46 Test Item Value Reference Range Interpretation Comments NA (test code = 131 mmol/L 135-145 L 1890052091) K (test code = 4.1 mmol/L 3.5-5.0 6992911182) CL (test code = 98 mmol/L 98-108 8140564802) CO2 TOTAL (test code = 27 mmol/L 23-31 9115140698) AGAP (test code = 2-16 1175008024) BUN (test code = 9 mg/dL 7-23 6164925862) GLUCOSE (test code = 90 mg/dL 70-110 9308834080) CREATININE (test code = 0.79 mg/dL 0.60-1.25 0334760816) TOTAL BILI (test code = 2.3 mg/dL 0.1-1.1 H 1346234191) CALCIUM (test code = 8.1 mg/dL 8.6-10.6 L 6857401095) T PROTEIN (test code = 7.7 g/dL 6.3-8.2 9049491645) ALBUMIN (test code = 3.3 g/dL 3.5-5.0 L 5157205775) ALK PHOS (test code = 508 U/L 34-122 H 5565896461) ALTv (test code = 138 U/L 5-50 H 1742-6) AST(SGOT) (test code = 121 U/L 13-40 H 1967033675) eGFR (test code = mL/min/1.73m2 2689118476) STAR (test code = STAR) Association of [...] tests). Lab Interpretation Abnormal (test code = 47067-5) [facility] WITH [id number] 12:04:01 Test Item Value Reference Range Interpretation Comments WBC (test code = See_Comment [Automated 8990-2) message] The sy stem which generated this result transmitted reference range : 4.20 - 10.70 10*3/?L. The reference range was not used to interpret this result as normal/abnormal . RBC (test code = See_Comment L [Automated 409-8) message] The sy stem which generated this [...] (test code = 55.9 fL 38.5-51.6 H 39773-1) RDW-CV (test code = 17.0 % 12.1-15.4 H 788-0) PLT (test code = See_Comment H [Automated 777-3) message] The sy stem which generated this result transmitted reference range : 150 - 328 10*3/ ?L. The reference r jalyn was not used to interpret this result as normal/abnormal . MPV (test code = 9.5 fL 9.8-13.0 L 95247-6) NRBC/100 WBC (test See_Comment [Automat ed code = 5858988696) message] The system which generated this result transmitted reference range : 0.0 - 10.0 /100 WBCs. The refer ence range was not u sed to interpret th is result as normal/abnormal . NRBC x10^3 (test code <0.01 See_Comment [Auto mated = 3848059404) message] The s ystem which generated this result transmitted reference range : 10*3/?L. The reference range was not used to interpret this result as normal/abnormal . GRAN MAT (NEUT) % 77.6 % (test code = 770-8) IMM GRAN % (test code 0.90 % = 2410946858) LYMPH % (test code = 9.7 % 736-9) MONO % (test code = 9.5 % 5905-5) EOS % (test code = 1.8 % 713-8) BASO % (test code = 0.5 % 706-2) GRAN MAT x10^3(ANC) 5.99 10*3/uL 1.99-6.95 (test code = 8624089194) IMM GRAN x10^3 (test 0.07 10*3/uL 0.00-0.06 H code = 5541433129) LYMPH x10^3 (test code 0.75 10*3/uL 1.09-3.23 L = 731-0) MONO x10^3 (test code 0.73 10*3/uL 0.36-1.02 = 742-7) EOS x10^3 (test code = 0.14 10*3/uL 0.06-0.53 711-2) BASO x10^3 (test code 0.04 10*3/uL 0.01-0.09 = 704-7) Lab Interpretation Abnormal (test code = 20808-5) [facility] [id number] 21:33:53 Test Item Value Reference Range Interpretation Comments Specimen Tested Plasma (test code = 6150728655) CMV PCR - log <2.5 See_Comment [Automated IU/mL (test message] The code = 74013-9) system which generated this result transmitted reference range : <2.5 log IU/mL. The reference range was not used to interpr et this result as normal/abnormal . CMV PCR - IU/mL <300 See_Comment [Automated (test code = message] The 11995-7) system which generated this result transmitted reference range : <300 IU/mL. The reference range was not used to interpret this result as normal/abnormal . CMV PCR - log <2.7 See_Comment [Automated copies/mL (test message] The code = 85744-4) system which generated this result transmitted reference range : <2.7 log copies/mL. The reference range was not used to interpret this result as normal/abnormal . CMV PCR - <516 See_Comment [Automated copies/mL (test message] The code = 41289-4) system which generated this result transmitted reference [...] This is a laboratory-developed test using a pigeon fancier labeled ASR (Analyte Specific Reagent) as the reagent providing the specificity of the assay. ?This test was developed and its performance characteristics determined by [facility] Clinical Microbiology Laboratory. It has not [...] to perform high complexity clinical laboratory testing. [facility] CenterHAPTOGLOBIN, [id number] 19:59:34 Test Item Value Reference Range Interpretation Comments HAPTOGLOB (test code = 0156048816) 234 mg/dL 16-200 H Lab Interpretation (test code = Abnormal 28369-1) [facility] CenterFERRITIN [id number] 17:58:12 Test Item Value Reference Range Interpretation Comments FERRITIN (test code = 135.0 ng/mL 18.0-464.0 6639835122) STAR (test code = STAR) Biotin has been reported to cause a negative bias, interpret results relative to patient's use of biotin. Lab Interpretation (test Normal code = 21240-0) [facility] CenterIRON2022-[facility] 17:19:26 Test Item Value Reference Range Interpretation Comments IRON (test code = 5023192811) 50 ug/dL 50-160 Lab Interpretation (test code = Normal 15079-0) [facility]. METABOLIC PANEL (16651)2021-11-18 11:54:31 Test Item Value Reference Range Interpretation Comments NA (test code = 132 mmol/L 135-145 L 4379899425) K (test code = 3.6 mmol/L 3.5-5.0 6980961560) CL (test code = 101 mmol/L 98-108 6594867134) CO2 TOTAL (test code = 24 mmol/L 23-31 6665518139) AGAP (test code = 2-16 1796828733) BUN (test code = 8 mg/dL 7-23 7299480114) GLUCOSE (test code = 115 mg/dL 70-110 H 3138685533) CREATININE (test code = 0.75 mg/dL 0.60-1.25 3717837446) TOTAL BILI (test code = 1.8 mg/dL 0.1-1.1 H 5857100347) CALCIUM (test code = 7.9 mg/dL 8.6-10.6 L 3228271206) T PROTEIN (test code = 7.2 g/dL 6.3-8.2 3402620719) ALBUMIN (test code = 3.1 g/dL 3.5-5.0 L 3787842790) ALK PHOS (test code = 471 U/L 34-122 H 4566682113) ALTv (test code = 128 U/L 5-50 H 1742-6) AST(SGOT) (test code = 104 U/L 13-40 H 1719029943) eGFR (test code = mL/min/1.73m2 5087246761) STAR (test code = STAR) Association of [...] tests). Lab Interpretation Abnormal (test code = 68481-9) [facility] [id number] 11:54:31 Test Item Value Reference Range Interpretation Comments BILI CONJ (test code = 6911976598) 0.1 mg/dL 0.0-0.3 BILI UNCON (test code = 2248818554) 0.5 mg/dL 0.1-1.1 Lab Interpretation (test code = Normal 46133-2) [facility] WITH [id number] 11:27:05 Test Item Value Reference Range Interpretation Comments WBC (test code = See_Comment [Automated 6390-2) message] The sy stem which generated this result transmitted reference range : 4.20 - 10.70 10*3/?L. The reference range was not used to interpret this result as normal/abnormal . RBC (test code = See_Comment L [Automated 559-8) message] The sy stem which generated this [...] (test code = 55.4 fL 38.5-51.6 H 00337-7) RDW-CV (test code = 17.0 % 12.1-15.4 H 788-0) PLT (test code = See_Comment H [Automated 777-3) message] The sy stem which generated this result transmitted reference range : 150 - 328 10*3/ ?L. The reference r jalyn was not used to interpret this result as normal/abnormal . MPV (test code = 9.3 fL 9.8-13.0 L 00754-3) NRBC/100 WBC (test See_Comment [Automat ed code = 6146420865) message] The system which generated this result transmitted reference range : 0.0 - 10.0 /100 WBCs. The refer ence range was not u sed to interpret th is result as normal/abnormal . NRBC x10^3 (test code <0.01 See_Comment [Auto mated = 9214967082) message] The s ystem which generated this result transmitted reference range : 10*3/?L. The reference range was not used to interpret this result as normal/abnormal . GRAN MAT (NEUT) % 66.5 % (test code = 770-8) IMM GRAN % (test code 1.70 % = 8512750206) LYMPH % (test code = 14.9 % 736-9) MONO % (test code = 14.3 % 5905-5) EOS % (test code = 1.9 % 713-8) BASO % (test code = 0.7 % 706-2) GRAN MAT x10^3(ANC) 4.99 10*3/uL 1.99-6.95 (test code = 1451187238) IMM GRAN x10^3 (test 0.13 10*3/uL 0.00-0.06 H code = 9145020806) LYMPH x10^3 (test code 1.12 10*3/uL 1.09-3.23 = 731-0) MONO x10^3 (test code 1.07 10*3/uL 0.36-1.02 H = 742-7) EOS x10^3 (test code = 0.14 10*3/uL 0.06-0.53 711-2) BASO x10^3 (test code 0.05 10*3/uL 0.01-0.09 = 704-7) Lab Interpretation Abnormal (test code = 11795-6) [facility] CenterC-REACTIVE [id number] 20:30:26 Test Item Value Reference Range Interpretation Comments CRP (test code = 8377013242) 8.4 mg/dL <0.8 H Lab Interpretation (test code = Abnormal 90420-5) [facility] CenterT. PALLIDUM PARTICLE [id number] 20:05:03 Test Item Value Reference Range Interpretation Comments T. pallidum Particle Reactive Nonreactive A Agglutination (test code = 5571613899) STAR (test code = STAR) Based on IgG/IgM, RPR, and TPPA results, probable active T. pallidum infection. ? Lab Interpretation (test Abnormal code = 57010-9) [facility] CenterRPR (QUANTITATIVE)2021-11-17 19:56:12 Test Item Value Reference Range Interpretation Comments RPR (Quantitative) (test code = 1:256 Nonreactive A 49054-0) Lab Interpretation (test code = Abnormal 79698-0) [facility] CenterDIFF CONSULT [id number] 19:03:09 LEUKOCYTES ARE UNREMARKABLE. FEW REACTIVE LYMPHOCYTES IDENTIFIED. MILD NORMOCYTIC NORMOCHROMIC ANEMIA. PLATELETS ARE UNREMARKABLE.[facility] CenterGALV ONLY - SYPHILIS [id number] 16:58:56 Test Item Value Reference Range Interpretation Comments Syphilis IgG/IgM (test Reactive Non-reactive A code = 82907-7) STAR (test code = STAR) Non-reactive - No serologic evidence of T. pallidum infection. Cannot exclude incubating or early syphilis. Submit a second specimen in 2-4 weeks if syphilis is clinically suspected. Equivocal - Further testing to follow. Reactive - Further testing to follow. Lab Interpretation (test Abnormal code = 75323-0) [facility] CenterHCV [id number] 15:42:39 Test Item Value Reference Range Interpretation Comments HCV Ab (test code = Positive 14095-2) HCV Semi-Quantitative (test code = 08663-6) APRI (test code = 1621841477) STAR (test code = Positive for HCV antibody STAR) with a high signal to cutoff ratio (s/c). ?Supplementary test for Hepatitis C Virus RNA Real-Time PCR is recommended if clinically indicated. ?If any questions, please contact Clinical Chemistry Director ion implant machine operator at [phone].APRI score < 0.5: Suggestive of little to no fibrosisAPRI score > 1.5: Suggestive of moderate to severe fibrosisAPRI score > 2.0: Highly suggestive of cirrhosis. [facility] WITH [id number] 14:43:40 Test Item Value Reference Range Interpretation [...] (test code = 57.9 fL 38.5-51.6 H 66355-1) RDW-CV (test code = 18.0 % 12.1-15.4 H 788-0) PLT (test code = See_Comment [Automated 777-3) message] The sy stem which generated this result transmitted reference range : 150 - 328 10*3/ ?L. The reference r jalyn was not used to interpret this result as normal/abnormal . MPV (test code = 10.8 fL 9.8-13.0 25187-4) NRBC/100 WBC (test See_Comment [Automat ed code = 6746214250) message] The system which generated this result transmitted reference range : 0.0 - 10.0 /100 WBCs. The refer ence range was not u sed to interpret th is result as normal/abnormal . NRBC x10^3 (test code <0.01 See_Comment [Auto mated = 9422281007) message] The s ystem which generated this result transmitted reference range : 10*3/?L. The reference range was not used to interpret this result as normal/abnormal . GRAN MAT (NEUT) % 68.8 % (test code = 770-8) IMM GRAN % (test code 1.20 % = 6855798303) LYMPH % (test code = 16.6 % 736-9) MONO % (test code = 11.0 % 5905-5) EOS % (test code = 1.6 % 713-8) BASO % (test code = 0.8 % 706-2) GRAN MAT x10^3(ANC) 5.06 10*3/uL 1.99-6.95 (test code = 7494044717) IMM GRAN x10^3 (test 0.09 10*3/uL 0.00-0.06 H code = 1431017447) LYMPH x10^3 (test code 1.22 10*3/uL 1.09-3.23 = 731-0) MONO x10^3 (test code 0.81 10*3/uL 0.36-1.02 = 742-7) EOS x10^3 (test code = 0.12 10*3/uL 0.06-0.53 711-2) BASO x10^3 (test code 0.06 10*3/uL 0.01-0.09 = 704-7) Lab Interpretation Abnormal (test code = 03174-4) [facility] CenterHEPATITIS B SURFACE [id number] 11:33:57 Test Item Value Reference Range Interpretation Comments HBsAB (test code = Negative 6014199620) HBsAb mIU/mL Semi-Quantitative (test code = 3544374690) STAR (test code = Interpretation: STAR) ?Hepatitis B Surface Antibody ? Negative - Patient is considered to be not immune to infection with HBV. ? ? Positive - Anti-HBs detected at greater than or equal to 12 mIU/mL. ?Patient is considered to be immune to infection with HBV. ? [facility]HE[facility] C[facility] ANTIBODY [id number] 10:57:13 Test Item Value Reference Range Interpretation Comments HBCM Negative Semi-Quantitative (test code = 99446-6) STAR (test code = Biotin has been reported STAR) to cause a negative bias, interpret results relative to patient's use of biotin. [facility] CenterHEBAPT[facility] HE[facility] PADUCAHTIS A VIRUS ANTIBODY [id number] 10:57:13 Test Item Value Reference Range Interpretation Comments HAVM Negative Semi-Quantitative (test code = 84524-0) STAR (test code = HAVAb IgM Interpretative STAR) Information: Reactive greater than or equal to 1.2 Biotin has been reported to cause a negative bias, interpret results relative to patient's use of biotin. [facility] B SURFACE [id number] 10:52:05 Test Item Value Reference Range Interpretation Comments HBsAg Semi-Quantitative (test code = Positive Negative A 5195-3) Lab Interpretation (test code = Abnormal 60171-9) [facility] CenterSEDIMENTATION [id number] 10:30:25 Test Item Value Reference Range Interpretation Comments ESR (test code = See_Comment H [Automated message] 2460306865) The system mAPPn generated this result transmitted ref erence range: 0 - 10 m m/HR. The reference r jalyn was not used to interpret this result as normal/abnor mal. Lab Interpretation (test Abnormal code = 96317-7) [facility] CenterHIV 1/2 AG-AB WITH [id number] 10:27:44 Test Item Value Reference Range Interpretation Comments HIV Negative Negative Semi-quantitative (test code = 48869-4) STAR (test code = Non-reactive for HIV-1 STAR) antigen and HIV-1/HIV-2 antibodies. ?No laboratory evidence of HIV infection. ?Repeat in 2-4 weeks if acute HIV infection is suspected. [facility] CenterHEPATIC FUNCTION PANEL (14769) (ALB,T.PRO,BILI T,BU/BC,ALT,AST,ALK PHOS)2021-11-17 10:06:02 Test Item Value Reference Range Interpretation Comments TOTAL BILI (test code = 7176888724) 2.1 mg/dL 0.1-1.1 H BILI UNCON (test code = 3374121689) 0.5 mg/dL 0.1-1.1 BILI CONJ (test code = 3893894852) 0.4 mg/dL 0.0-0.3 H T PROTEIN (test code = 1508965290) 7.7 g/dL 6.3-8.2 ALBUMIN (test code = 7761855657) 3.3 g/dL 3.5-5.0 L ALK PHOS (test code = 1392135613) 544 U/L 34-122 H ALTv (test code = 1742-6) 150 U/L 5-50 H AST(SGOT) (test code = 5517239670) 153 U/L 13-40 H Lab Interpretation (test code = Abnormal 63546-3) [facility] METABOLIC PANEL (NA, K, CL, CO2, GLUCOSE, BUN, CREATININE, CA)2021-11-17 10:06:02 Test Item Value Reference Range Interpretation Comments NA (test code = 136 mmol/L 135-145 2775396027) K (test code = 4.2 mmol/L 3.5-5.0 7393192299) CL (test code = 106 mmol/L 98-108 0495967773) CO2 TOTAL (test code = 23 mmol/L 23-31 1995963569) AGAP (test code = 2-16 6518463936) BUN (test code = 10 mg/dL 7-23 8182570132) GLUCOSE (test code = 74 mg/dL 70-110 8862542771) CREATININE (test code = 0.78 mg/dL 0.60-1.25 4914613641) CALCIUM (test code = 7.9 mg/dL 8.6-10.6 L 2202493993) eGFR (test code = mL/min/1.73m2 3753214259) STAR (test code = STAR) Association of [...] tests). Lab Interpretation Abnormal (test code = 10328-2) [facility] CenterD-[id number] 09:54:02 Test Item Value Reference Interpretation Comments Range D-DIMER (test code = See_Comment H [Autom ated 2423054322) message] The system which generated this result [...] diagnosis. Lab Interpretation Abnormal (test code = 03765-4) [facility] CenterCREATINE [id number] 09:42:22 Test Item Value Reference Range Interpretation Comments CK (test code = 7209094079) <20 33-194 L Lab Interpretation (test code = Abnormal 05525-4) [facility] CenterTHYROID STIMULATING [id number] 08:58:33 Test Item Value Reference Range Interpretation Comments TSH (test code = See_Comment [Automated message] 6686520038) The system mAPPn generated this result transmitted ref erence range: 0.45 - 4 .70 mIU/L. The refe rence range was not u sed to interpret this result as normal/abnor mal. Lab Interpretation (test Normal code = 28237-0) [facility] CenterN-TERMINAL [id number] 08:37:09 Test Item Value Reference Range Interpretation Comments NT-proBNP (test code 373 pg/mL See_Comment H [Autom ated = 8177508353) message] The system which generated this result transmitted reference range : <=125. The reference range was not used to interpret this result as normal/abnormal . STAR (test code = STAR) Biotin has been reported to cause a negative bias, interpret results relative to patient's use of biotin. Lab Interpretation Abnormal (test code = 34909-4) [facility] CenterETHANOL2022-01-06 08:34:12 Test Item Value Reference Range Interpretation Comments ALCOHOL (test code = <10 mg/dL 3108792192) STAR (test code = Toxic Greater than or STAR) equal to 80 mg/dL. NOTE: Whole blood values are approximately 10% to 15% lower than serum and plasma. [facility] CenterACETAMINOPHEN2022-01-06 08:34:02 Test Item Value Reference Range Interpretation Comments ACETAMINOP (test code = <10.0 10.0-30.0 L 2216093565) STAR (test code = STAR) Toxic: Greater than 200 ug/mL @ 4 hour post ingestion or greater than 50 ug/mL @ 12 hour post ingestion Lab Interpretation (test Abnormal code = 91497-7) [facility] CenterLIPASE2022-01-06 02:53:35 Test Item Value Reference Range Interpretation Comments LIPASE (test code = 6116862860) 160 U/L 0-220 Lab Interpretation (test code = Normal 14801-7) [facility] CenterEBV-MONONUCLEOSIS [id number] 02:03:45 Test Item Value Reference Range Interpretation Comments EBV Mononucleosis Screen (test code Negative Negative = 6991780331) Lab Interpretation (test code = Normal 26001-0) [facility] CenterTROPONIN [id number] 23:56:57 Test Item Value Reference Interpretation Comments Range TROPONIN I (test 0.001 ng/mL See_Comment [Automated code = 3240714035) message] The system which generated this result [...] biotin. Lab Interpretation Normal (test code = 62358-3) [facility]. METABOLIC PANEL (18507)2021-11-16 23:45:32 Test Item Value Reference Range Interpretation Comments NA (test code = 133 mmol/L 135-145 L 5965285731) K (test code = 4.3 mmol/L 3.5-5.0 6187341787) CL (test code = 102 mmol/L 98-108 8173892919) CO2 TOTAL (test code = 23 mmol/L 23-31 5400124488) AGAP (test code = 2-16 8235089791) BUN (test code = 14 mg/dL 7-23 3711547445) GLUCOSE (test code = 112 mg/dL 70-110 H 0869138610) CREATININE (test code = 0.74 mg/dL 0.60-1.25 8632677644) TOTAL BILI (test code = 1.2 mg/dL 0.1-1.1 H 8056683487) CALCIUM (test code = 7.9 mg/dL 8.6-10.6 L 6295066680) T PROTEIN (test code = 7.4 g/dL 6.3-8.2 1286811640) ALBUMIN (test code = 3.2 g/dL 3.5-5.0 L 3762250166) ALK PHOS (test code = 602 U/L 34-122 H 2660626725) ALTv (test code = 154 U/L 5-50 H 1742-6) AST(SGOT) (test code = 207 U/L 13-40 H 1735829937) eGFR (test code = mL/min/1.73m2 0009137475) STAR (test code = STAR) Association of [...] tests). Lab Interpretation Abnormal (test code = 07202-8) [facility] WITH [id number] 23:28:46 Test Item Value Reference Range Interpretation [...] (test code = 59.5 fL 38.5-51.6 H 63303-0) RDW-CV (test code = 17.9 % 12.1-15.4 H 788-0) PLT (test code = See_Comment H [Automated 777-3) message] The sy stem which generated this result transmitted reference range : 150 - 328 10*3/ ?L. The reference r jalyn was not used to interpret this result as normal/abnormal . MPV (test code = 9.8 fL 9.8-13.0 80176-2) NRBC/100 WBC (test See_Comment [Automat ed code = 5546451558) message] The system which generated this result transmitted reference range : 0.0 - 10.0 /100 WBCs. The refer ence range was not u sed to interpret th is result as normal/abnormal . NRBC x10^3 (test code <0.01 See_Comment [Auto mated = 3331923255) message] The s ystem which generated this result transmitted reference range : 10*3/?L. The reference range was not used to interpret this result as normal/abnormal . GRAN MAT (NEUT) % 74.8 % (test code = 770-8) IMM GRAN % (test code 1.20 % = 7926844013) LYMPH % (test code = 13.3 % 736-9) MONO % (test code = 8.4 % 5905-5) EOS % (test code = 1.5 % 713-8) BASO % (test code = 0.8 % 706-2) GRAN MAT x10^3(ANC) 5.58 10*3/uL 1.99-6.95 (test code = 3664345163) IMM GRAN x10^3 (test 0.09 10*3/uL 0.00-0.06 H code = 1542586948) LYMPH x10^3 (test code 0.99 10*3/uL 1.09-3.23 L = 731-0) MONO x10^3 (test code 0.63 10*3/uL 0.36-1.02 = 742-7) EOS x10^3 (test code = 0.11 10*3/uL 0.06-0.53 711-2) BASO x10^3 (test code 0.06 10*3/uL 0.01-0.09 = 704-7) Lab Interpretation Abnormal (test code = 58837-9) [facility]
[2022-03-03] MEDS ORDERED: AMPICILLIN/SULBACTAM 3GM/VIAL ONE (08:30)
[2022-03-03] MEDS ORDERED: MORPHINE 2 MG/ML SYR ONE ×2 (08:30→09:46)
[2022-03-03] MEDS ORDERED: NA CHLORIDE 0.9% 100 ML IV ONE (08:31)
[2022-03-03] MEDS ORDERED: ONDANSETRON 4 MG/2 ML VIAL ONE (08:31)
[2022-03-03] MEDS ORDERED: NA CHLORIDE 0.9% 1,000 ML ONE (08:31)
[2022-03-03 08:34] LABS: Absolute Lymphocytes (CBC) 1.5 K/uL (0.7-4.9); Hematocrit 40.5 % (39.6-49.0); Lymphocytes % 20.5 % (15.3-44.8); MPV 7.2 fL (7.6-11.3)
[2022-03-03 08:40] LABS: Protime INR 0.99
--- NOTE | 2022-03-03 08:52 | RAD REPORT ---
EXAM DESCRIPTION: CT - Head Brain Wo Cont - 03/03/2022 8:36 am CLINICAL HISTORY: Head trauma, intracranial venous injury suspected COMPARISON: Facial Bones W/ Mpr dated 02/24/2022; Head C Spine Mpr Wo Con dated 02/28/2022; Head C Spi ne Mpr Wo Con dated 02/24/2022 TECHNIQUE: Axial 5 mm thick images of the head were obtained without IV contrast. All CT scans are performed using dose optimization technique as appropriate and may include automated exposure control or mA/KV adjustment according to patient size. FINDINGS: Subacute hemorrhage is again noted in the anterior aspect and floor of the right middle cr anial fossa. The size of this subacute bleed has not changed since February 28 imaging. There is no incr ease in edema or mass effect in this region. No new site of intracranial hemorrhage identified. There is no overall cerebral edema, significant mass effect or progressive midline shift. No cortical gregor a or sulcal effacement. Acute infarction changes are not evident. Ventricles are normal. Mastoid air cells are clear. Patchy paranasal sinus mucosal thickening seen without air-fluid level. No acute bony findings. IMPRESSION: Right middle cranial fossa subacute hemorrhage has not changed since February 28. No new hemorrhage, mass effect, edema or other significant change since February 28.
[2022-03-03 08:53] LABS: Albumin 3.4 g/dL (3.4-5.0); Bilirubin Total 0.4 mg/dL (0.2-1.0); Potassium 4.2 mmol/L (3.5-5.1)
--- NOTE | 2022-03-03 09:24 | RAD REPORT ---
EXAM DESCRIPTION: US - UPPER EXTREMITY VENOUS UNILATE - 03/03/2022 9:11 am CLINICAL HISTORY: Left arm pain and swelling COMPARISON: None. TECHNIQUE: Real-time sonographic evaluation of the left upper extremity deep venous systems was perf ormed. FINDINGS: Normal compressibility, flow augmentation, phasic flow and spontaneous flow are identified in the left upper extremity deep venous system. No intraluminal filling defects seen. Internal jugul ar and subclavian veins are normal as well. The superficial left basilic vein shows thrombus filling and enlarging the lumen of the vessel extend ing from the antecubital fossa distally to near the wrist. IMPRESSION: Superficial venous thrombosis in the left basilic vein from elbow to wrist. No thrombus in the deep venous system identified.
[2022-03-03] MEDS ORDERED: ENOXAPARIN 40 MG/0.4 ML SQ ONE (09:40)
--- NOTE | 2022-03-03 09:43 | EDPHYS ---
Physician Documentation [facility] Name: Sukhwinder Lorenzo Age: 32 yrs Sex: Male : 1990 Arrival Date: 03/03/2022 Time: 07:50 Bed 19 Private MD: ED Physician Bravo Mora HPI: 03/03 08:12 This 32 yrs old Male presents to ER via Ambulatory with complaints of Arm tom Pain. 08:12 The patient or guardian complains of decreased range of motion, pain, swelling, tom tenderness. The complaints affect the dorsal aspect of left forearm and palmar aspect of left forearm. Context: The problem was sustained at home, resulted from. Historical: - Allergies: 08:01 No Known Allergies; iw - Home Meds: 08:01 Keppra Oral [Active]; Clindamycin Oral [Active]; iw - PMHx: 08:01 drug abuse; HEP C; iw - PSHx: 08:01 Abscess Drain from RUQ; iw - Immunization history:: Adult Immunizations unknown. - Social history:: Smoking status: unknown. ROS: 08:19 Constitutional: Negative for fever, chills, and weight loss, Eyes: Negative for injury, tom pain, redness, and discharge, ENT: Negative for injury, pain, and discharge, Neck: Negative for injury, pain, and swelling, Cardiovascular: Negative for chest pain, palpitations, and edema, Respiratory: Negative for shortness of breath, cough, wheezing, and pleuritic chest pain, Abdomen/GI: Negative for abdominal pain, nausea, vomiting, diarrhea, and constipation, Back: Negative for injury and pain, : Negative for injury, bleeding, discharge, and swelling, MS/Extremity: Negative for injury and deformity, Neuro: Negative for headache, weakness, numbness, tingling, and seizure, Psych: Negative for depression, anxiety, suicide ideation, homicidal ideation, and hallucinations, Allergy/Immunology: Negative for hives, rash, and allergies, Endocrine: Negative for neck swelling, polydipsia, polyuria, polyphagia, and marked weight changes, Hematologic/Lymphatic: Negative for swollen nodes, abnormal bleeding, and unusual bruising. 08:19 MS/extremity: Positive for decreased range of motion, erythema, pain, swelling, tenderness, of the dorsal aspect of left forearm and palmar aspect of left forearm. 08:19 Skin: Positive for Exam: 08:19 Constitutional: This is a well developed, well nourished patient who is awake, alert, tom and in no acute distress. Head/Face: Normocephalic, atraumatic. Eyes: Pupils equal round and reactive to light, extra-ocular motions intact. Lids and lashes normal. Conjunctiva and sclera are non-icteric and not injected. Cornea within normal limits. Periorbital areas with no swelling, redness, or edema. ENT: Nares patent. No nasal discharge, no septal abnormalities noted. Tympanic membranes are normal and external auditory canals are clear. Oropharynx with no redness, swelling, or masses, exudates, or evidence of obstruction, uvula midline. Mucous membranes moist. Neck: Trachea midline, no thyromegaly or masses palpated, and no cervical lymphadenopathy. Supple, full range of motion without nuchal rigidity, or vertebral point tenderness. No Meningismus. Chest/axilla: Normal chest wall appearance and motion. Nontender with no deformity. No lesions are appreciated. Cardiovascular: Regular rate and rhythm with a normal S1 and S2. No gallops, murmurs, or rubs. Normal PMI, no JVD. No pulse deficits. Respiratory: Lungs have equal breath sounds bilaterally, clear to auscultation and percussion. No rales, rhonchi or wheezes noted. No increased work of breathing, no retractions or nasal flaring. Abdomen/GI: Soft, non-tender, with normal bowel sounds. No distension or tympany. No guarding or rebound. No evidence of tenderness throughout. Back: No spinal tenderness. No costovertebral tenderness. Full range of motion. Male : Normal genitalia with no discharge or lesions. Skin: Warm, dry with normal turgor. Normal color with no rashes, no lesions, and no evidence of cellulitis. Neuro: Awake and alert, GCS 15, oriented to person, place, time, and situation. Cranial nerves II-XII grossly intact. Motor strength 5/5 in all extremities. Sensory grossly intact. Cerebellar exam normal. Normal gait. Psych: Awake, alert, with orientation to person, place and time. Behavior, mood, and affect are within normal limits. 08:19 Musculoskeletal/extremity: Extremities: grossly normal except: noted in the palmar aspect of left forearm and dorsal aspect of left forearm: 08:19 Skin: cellulitis, that is moderate, confluent, on the dorsal aspect of left forearm and palmar aspect of left forearm. Vital Signs: 07:57 BP 160 / 95; Pulse 76; Resp 16; Temp 98.4; Pulse Ox 100% on R/A; Weight 67.13 kg; iw Height 5 ft. 7 in. (170.18 cm); Pain 8/10; 09:46 BP 154 / 85; Pulse 76; Resp 18 S; Pulse Ox 99% on R/A; jd3 10:46 BP 141 / 86; Pulse 75; Resp 17 S; Pulse Ox 99% on R/A; jd3 11:45 BP 139 / 96; Pulse 65; Resp 17 S; Pulse Ox 99% on R/A; jd3 14:10 BP 136 / 92; Pulse 67; Resp 16 S; Pulse Ox 98% on R/A; jd3 07:57 Body Mass Index 23.18 (67.13 kg, 170.18 cm) iw MDM: 07:59 Patient medically screened. tom 08:21 Differential diagnosis: contusion. Data reviewed: vital signs, nurses notes, lab test tom result(s), radiologic studies, CT scan, doppler, plain films. Data interpreted: statement clerk: rate is 76 beats/min, rhythm is regular, Pulse oximetry: on room air is 100 %. Test interpretation: by ED physician or midlevel provider: plain radiologic studies. Counseling: I had a detailed discussion with the patient and/or guardian regarding: the historical points, exam findings, and any diagnostic results supporting the discharge/admit diagnosis, lab results, radiology results. 03/03 08:11 Order name: CBC with Diff; Complete Time: 08:59 tom 03/03 08:11 Order name: Comprehensive Metabolic Panel; Complete Time: 08:59 tom 03/03 08:11 Order name: PT-INR; Complete Time: 08:59 tom 03/03 08:11 Order name: Pth,Intact; Complete Time: 09:24 tom 03/03 11:34 Order name: COVID-19 SARS RT PCR (Document "Date of Onset" if Symptomatic) dh3 03/03 08:16 Order name: UPPER EXTREMITY VENOUS UNILATE; Complete Time: 09:24 EDMS 03/03 08:18 Order name: CT Head Brain wo Cont; Complete Time: 08:59 tom 03/03 13:20 Order name: CBC with Automated Diff EDMS 03/03 13:20 Order name: CBC with Automated Diff EDMS 03/03 13:20 Order name: Comprehensive Metabolic Panel EDMS 03/03 13:20 Order name: Comprehensive Metabolic Panel EDMS 03/03 08:25 Order name: IV; Complete Time: 08:25 jd3 03/03 09:26 Order name: Misc. Order: elevate left upper extremity; Complete Time: 09:33 tom 03/03 13:20 Order name: NPO EDMS Administered Medications: 09:20 Drug: NS 0.9% 1000 ml Route: IV; Rate: 1 bolus; Site: right forearm; jd3 10:20 Follow up: Response: No adverse reaction; IV Status: Completed infusion; IV Intake: jd3 1000ml 09:20 Drug: Unasyn (ampicillin-sulbactam) 3 grams Route: IVPB; Infused Over: 30 mins; Site: jd3 right forearm; 10:20 Follow up: Response: No adverse reaction; IV Status: Completed infusion jd3 09:20 Drug: morphine 2 mg Route: IVP; Site: right forearm; jd3 09:20 Drug: Zofran (Ondansetron) 4 mg Route: IVP; Site: right forearm; jd3 10:20 Follow up: Response: No adverse reaction jd3 09:40 Drug: Lovenox (enoxaparin) 40 mg Route: Sub-Q; Site: abdomen; jd3 10:40 Follow up: Response: No adverse reaction jd3 09:45 Drug: morphine 2 mg Route: IVP; Site: right forearm; jd3 10:20 Follow up: Response: No adverse reaction; RASS: Alert and Calm (0) jd3 10:45 Follow up: Response: No adverse reaction; RASS: Alert and Calm (0) jd3 11:26 Drug: morphine 4 mg Route: IVP; Site: right forearm; jd3 11:46 Follow up: Response: No adverse reaction; RASS: Alert and Calm (0) jd3 Disposition Summary: 03/03/22 09:42 Hospitalization Ordered Hospitalization Status: Inpatient Admission tom Provider: Francis Mason cha Location: Telemetry/MedSurg (Inpatient) tom Condition: Fair tom Problem: new tom Symptoms: have improved tom Bed/Room Type: Standard tom Room Assignment: 213(03/03/22 14:21) ss Diagnosis - Post-traumatic headache, unspecified, not intractable - right middle crainal fossa tom hemorrhage, stable 02/28/22 - Acute pansinusitis tom - Cellulitis and acute lymphangitis of other parts of limb tom - Acute embolism and thrombosis of superficial veins of left upper extremity tom Discharge Instructions: - Discharge Summary Sheet jd3 Forms: - Medication Reconciliation Form tom - SBAR form [facility] Signatures: Dispatcher [employer] EDMS Bravo Mora MD MD cha Williams, Irene RN NELY iw Alessia Mon RN RN Adrián Myrick RN RN jd3 Corrections: (The following items were deleted from the chart) 08:14 08:12 Extremity Venous Uni Ltd+US.RAD.BRZ ordered. EDMS EDMS 12:35 11:12 COVID 19 CPL+MR.LAB.BRZ ordered. EDMS EDMS 14:21 09:42 tom ss
--- NOTE | 2022-03-03 09:43 | ER ---
Nurse's Notes [facility] Name: Sukhwinder Lorenzo Age: 32 yrs Sex: Male : 1990 Arrival Date: 03/03/2022 Time: 07:50 Bed 19 Private MD: Diagnosis: Post-traumatic headache, unspecified, not intractable-right middle crainal fossa hemorrhage, stable 02/28/22;Acute pansinusitis;Cellulitis and acute lymphangitis of other parts of limb;Acute embolism and thrombosis of superficial veins of left upper extremity Presentation: 03/03 07:57 Chief complaint: Patient states: left arm red swollen since IV fluids/antibiotics given iw 02-24 at [place], was seen here on 02-28 and started on clindamycin but arm has gotten worse. Coronavirus screen: At this time, the client does not indicate any symptoms associated with coronavirus-19. Ebola Screen: Patient negative for fever greater than or equal to 101.5 degrees Fahrenheit, and additional compatible Ebola Virus Disease symptoms Patient denies exposure to infectious person. Patient denies travel to an Ebola-affected area in the 21 days before illness onset. No symptoms or risks identified at this time. Initial Sepsis Screen: Does the patient meet any 2 criteria? No. Patient's initial sepsis screen is negative. Does the patient have a suspected source of infection? No. Patient's initial sepsis screen is negative. Risk Assessment: Do you want to hurt yourself or someone else? Patient reports no desire to harm self or others. Onset of symptoms was February 28, 2022. 07:57 Method Of Arrival: Ambulatory iw 07:57 Acuity: PARISA 3 iw Historical: - Allergies: 08:01 No Known Allergies; iw - Home Meds: 08:01 Keppra Oral [Active]; Clindamycin Oral [Active]; iw - PMHx: 08:01 drug abuse; HEP C; iw - PSHx: 08:01 Abscess Drain from RUQ; iw - Immunization history:: Adult Immunizations unknown. - Social history:: Smoking status: unknown. Screenin:34 Abuse screen: Denies threats or abuse. Nutritional screening: No deficits noted. jd3 Tuberculosis screening: No symptoms or risk factors identified. Fall Risk Ambulatory Aid- None/Bed Rest/Nurse Assist (0 pts). Gait- Normal/Bed Rest/Wheelchair (0 pts) Mental Status- Oriented to own ability (0 pts). Total Freeman Fall Scale indicates No Risk (0-24 pts). Assessment: 08:25 General: Appears in no apparent distress. uncomfortable, Behavior is calm, cooperative, jd3 appropriate for age. Pain: Complains of pain in left arm Quality of pain is described as shooting, tender, throbbing. Neuro: Level of Consciousness is awake, alert, obeys commands, Oriented to person, place, time, situation. Cardiovascular: Capillary refill < 3 seconds Patient's skin is warm and dry. Respiratory: Airway is patent Respiratory effort is even, unlabored, Respiratory pattern is regular, symmetrical, Denies cough, shortness of breath. GI: No signs and/or symptoms were reported involving the gastrointestinal system. : No signs and/or symptoms were reported regarding the genitourinary system. EENT: Sclera/Cornea are reddened in left eye. Derm: Skin is intact, Skin is dry, Skin is normal, Skin temperature is warm splotchy red streaking noted to left forearm and traveling up throw the upper left arm. Musculoskeletal: Circulation, motion, and sensation intact. Range of motion: intact in all extremities, Swelling present in left forearm. 09:46 Reassessment: Patient appears in no apparent distress at this time. No changes from jd3 previously documented assessment. Patient and/or family updated on plan of care and expected duration. Pain level reassessed. Patient is alert, oriented x 3, equal unlabored respirations, skin warm/dry/pink. 10:46 Reassessment: Patient appears in no apparent distress at this time. Patient and/or jd3 family updated on plan of care and expected duration. Pain level reassessed. Patient is alert, oriented x 3, equal unlabored respirations, skin warm/dry/pink. awaiting admission. 11:45 Reassessment: No changes from previously documented assessment. Patient and/or family jd3 updated on plan of care and expected duration. Pain level reassessed. Patient is alert, oriented x 3, equal unlabored respirations, skin warm/dry/pink. awaiting admission. 14:10 Reassessment: Patient appears in no apparent distress at this time. No changes from jd3 previously documented assessment. Patient and/or family updated on plan of care and expected duration. Pain level reassessed. Patient is alert, oriented x 3, equal unlabored respirations, skin warm/dry/pink. Vital Signs: 07:57 BP 160 / 95; Pulse 76; Resp 16; Temp 98.4; Pulse Ox 100% on R/A; Weight 67.13 kg; iw Height 5 ft. 7 in. (170.18 cm); Pain 8/10; 09:46 BP 154 / 85; Pulse 76; Resp 18 S; Pulse Ox 99% on R/A; jd3 10:46 BP 141 / 86; Pulse 75; Resp 17 S; Pulse Ox 99% on R/A; jd3 11:45 BP 139 / 96; Pulse 65; Resp 17 S; Pulse Ox 99% on R/A; jd3 14:10 BP 136 / 92; Pulse 67; Resp 16 S; Pulse Ox 98% on R/A; jd3 07:57 Body Mass Index 23.18 (67.13 kg, 170.18 cm) iw ED Course: 07:50 Patient arrived in ED. ds1 07:56 Adrián Myrick RN is Primary Nurse. jd3 07:59 Bravo Mora MD is Attending Physician. tom 08:00 Triage completed. iw 08:01 Arm band placed on. iw 08:25 Inserted saline lock: 22 gauge in right forearm, using aseptic technique. Blood jd3 collected. 08:34 Patient has correct armband on for positive identification. Placed in gown. Bed in low jd3 position. Call light in reach. Side rails up X 1. Pulse ox on. NIBP on. 08:38 CT Head Brain wo Cont In Process Unspecified. EDMS 09:13 UPPER EXTREMITY VENOUS UNILATE In Process Unspecified. EDMS 09:27 Francis Mason MD is Hospitalizing Provider. tom 14:10 No provider procedures requiring assistance completed. Patient admitted, IV remains in jd3 place. Administered Medications: 09:20 Drug: NS 0.9% 1000 ml Route: IV; Rate: 1 bolus; Site: right forearm; jd3 10:20 Follow up: Response: No adverse reaction; IV Status: Completed infusion; IV Intake: jd3 1000ml 09:20 Drug: Unasyn (ampicillin-sulbactam) 3 grams Route: IVPB; Infused Over: 30 mins; Site: jd3 right forearm; 10:20 Follow up: Response: No adverse reaction; IV Status: Completed infusion jd3 09:20 Drug: morphine 2 mg Route: IVP; Site: right forearm; jd3 09:20 Drug: Zofran (Ondansetron) 4 mg Route: IVP; Site: right forearm; jd3 10:20 Follow up: Response: No adverse reaction jd3 09:40 Drug: Lovenox (enoxaparin) 40 mg Route: Sub-Q; Site: abdomen; jd3 10:40 Follow up: Response: No adverse reaction jd3 09:45 Drug: morphine 2 mg Route: IVP; Site: right forearm; jd3 10:20 Follow up: Response: No adverse reaction; RASS: Alert and Calm (0) jd3 10:45 Follow up: Response: No adverse reaction; RASS: Alert and Calm (0) jd3 11:26 Drug: morphine 4 mg Route: IVP; Site: right forearm; jd3 11:46 Follow up: Response: No adverse reaction; RASS: Alert and Calm (0) jd3 Intake: 10:20 IV: 1000ml; Total: 1000ml. jd3 Outcome: 09:42 Decision to Hospitalize by Provider. tom 15:06 Admitted to Med/surg accompanied by tech, via wheelchair, room 213, with chart, Report jd3 called to report given to nurse for room 213 15:06 Condition: stable 15:06 Instructed on the need for admit, Demonstrated understanding of instructions. 15:07 Patient left the ED. jd3 Signatures: Dispatcher [employer] EDBravo Forrest MD MD cha Sanford, Demi ds1 Amaya Patino RN RN iw Davies, Jonathon, RN RN jd3 Corrections: (The following items were deleted from the chart) 08:34 08:25 EENT: No signs and/or symptoms were reported regarding the EENT system. jd3 jd3 10:48 10:48 Response: No adverse reaction; RASS: Alert and Calm (0) jd3 jd3
[2022-03-03] MEDS ORDERED: MORPHINE 4 MG/ML SYR ONE (11:24)
[2022-03-03] MEDS ORDERED: MORPHINE 2 MG/ML SYR IV PRN (13:16)
[2022-03-03] MEDS ORDERED: ONDANSETRON 4 MG/2 ML VIAL IV PRN (13:16)
[2022-03-03] MEDS: VANCOMYCIN 1.25 GM in NA CHLORIDE 0.9% 250 ML IVPB SCH ×2 (16:45→18:00)
[2022-03-03] MEDS: PIPER TAZO 3.375 GM in NA CHLORIDE 0.9% 100 ML IV SCH (16:45)
[2022-03-03] MEDS: MORPHINE 4 MG/ML SYR IV PRN ×2 (16:53→21:13)
[2022-03-03] MEDS: NA CHLORIDE 0.9% 1,000 ML IV SCH (16:57)
[2022-03-03] MEDS ORDERED: ENOXAPARIN 40 MG/0.4 ML SQ SCH (17:00)
[2022-03-03] MEDS: ACETAMINOPHEN 500 MG TAB PO PRN (19:46)
[2022-03-03 20:01] VITALS: BMI 23.1
[2022-03-04] MEDS: PIPER TAZO 3.375 GM in NA CHLORIDE 0.9% 100 ML IV SCH ×3 (00:45→17:38)
[2022-03-04] MEDS: ACETAMINOPHEN 500 MG TAB PO PRN ×2 (01:20→09:04)
[2022-03-04] MEDS: MORPHINE 4 MG/ML SYR IV PRN ×5 (01:20→22:09)
[2022-03-04 03:29] LABS: Absolute Lymphocytes (CBC) 1.7 K/uL (0.7-4.9); Hematocrit 35.1 % (39.6-49.0); Lymphocytes % 35.9 % (15.3-44.8); MPV 7.7 fL (7.6-11.3); RBC Red Blood Cell Count 3.88 M/uL (4.33-5.43)
[2022-03-04 04:08] LABS: ALT/SGPT 126 U/L (12-78); AST/SGOT 53 U/L (15-37); Albumin 2.6 g/dL (3.4-5.0); Alkaline Phosphatase 112 U/L (45-117); BUN Blood Urea Nitrogen 6 mg/dL (7-18); Bicarbonate 27 mmol/L (21-32); Bilirubin Total 0.4 mg/dL (0.2-1.0); Glucose Level 75 mg/dL (74-106); Potassium 3.8 mmol/L (3.5-5.1); Protein, Total 6.3 g/dL (6.4-8.2); Sodium Level 139 mmol/L (136-145)
[2022-03-04] MEDS: NA CHLORIDE 0.9% 1,000 ML IV SCH (04:18)
[2022-03-04] MEDS: VANCOMYCIN 1.25 GM in NA CHLORIDE 0.9% 250 ML IVPB SCH ×2 (04:20→17:38)
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
--- NOTE | 2022-03-04 11:07 | P.PN ---
Subjective Date of Service: 03/04/22 Subjective: No new changes, No C/O voiced, Improving Review of Systems 10-point ROS is otherwise unremarkable Physical Examination - Vital Signs Temperature: 98.2 F Blood Pressure: 131/86 Pulse: 68 Respirations: 14 Pulse Ox (%): 98 - Physical Exam General: Alert, In no apparent distress, Oriented x3 Respiratory: Clear to auscultation bilaterally, Normal air movement Cardiovascular: Regular rate/rhythm, Normal S1 S2, No murmurs Gastrointestinal: Normal bowel sounds, Soft and benign, Non-distended, No tenderness Musculoskeletal: No clubbing, No swelling, No tenderness Neurological: Sensation intact, Cranial nerves 3-12 intact - Studies Laboratory Data (last 24 hrs) 03/04/22 02:38: Sodium 139, Potassium 3.8, BUN 6 L, Creatinine 0.85, Glucose 75, Total Bilirubin 0.4, AST 53 H, ALT 126 H, Alkaline Phosphatase 112 03/04/22 02:38: WBC 4.8 D, Hgb 11.6 L, Hct 35.1 L, Plt Count 269 Medications List Reviewed: Yes Assessment & Plan - Problems (Diagnosis) (1) Thrombophlebitis Current Visit: Yes Status: Acute (2) Cellulitis Current Visit: Yes Status: Acute (3) History of intracranial hemorrhage Current Visit: Yes Status: Acute - Plan PLAN: Continue plan of care as mentioned below: 1. Continue with IV antibiotic 2. Continue with local wound care 3. Monitor CBC 4. Strict blood sugar monitoring 5. Pain control 6. Steroids 7. GI and DVT prophylaxis Discharge Plan: Home Plan to discharge in: 48 Hours - Advance Directives Does patient have a Living Will: No Does patient have a Durable POA for Healthcare: No - Code Status/Comfort Care Code Status: Full Code Critical Care: No Time Spent Managing PTS Care (In Minutes): 35
[2022-03-04] MEDS: HYDROCORTISONE SUC 100 MG INJ IV SCH ×2 (17:00→17:30)
[2022-03-04] MEDS: ENOXAPARIN 40 MG/0.4 ML SQ SCH (17:38)
[2022-03-05] MEDS: HYDROCORTISONE SUC 100 MG INJ IV SCH ×3 (02:10→16:44)
[2022-03-05] MEDS: PIPER TAZO 3.375 GM in NA CHLORIDE 0.9% 100 ML IV SCH ×3 (02:11→16:30)
[2022-03-05] MEDS: MORPHINE 4 MG/ML SYR IV PRN ×3 (05:20→14:25)
[2022-03-05] MEDS: VANCOMYCIN 1.25 GM in NA CHLORIDE 0.9% 250 ML IVPB SCH (07:33)
[2022-03-05 08:15] VITALS: O2SAT 100
[2022-03-05] MEDS: ACETAMINOPHEN 500 MG TAB PO PRN (08:44)
[2022-03-05] MEDS: VANCOMYCIN 1.5 GM in NA CHLORIDE 0.9% 500 ML IVPB SCH (16:30)
[2022-03-05] MEDS: ENOXAPARIN 40 MG/0.4 ML SQ SCH (16:32)
--- NOTE | 2022-03-05 17:00 | RAD REPORT ---
EXAM DESCRIPTION: US - UPPER EXTREMITY VENOUS UNILATE - 03/05/2022 4:44 pm CLINICAL HISTORY: Left arm pain and swelling COMPARISON: None. TECHNIQUE: Real-time sonographic evaluation of the left upper extremity deep venous systems was perf ormed. FINDINGS: Normal compressibility, flow augmentation, phasic flow and spontaneous flow are identified in the left upper extremity deep venous system. No intraluminal filling defects seen. Internal jugul ar and subclavian veins are normal as well. Echogenic thrombus is present filling and distending the superficial basilic vein from the elbow join t to near the wrist joint. This is similar to the February 28 imaging with no progression or propagation of the superficial venous thrombosis. IMPRESSION: No DVT in the left upper extremity. Basilic vein superficial venous thrombosis showing no identifiable change from the recent imaging.
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
[2022-03-05] MEDS ORDERED: ASPIRIN EC 81 MG TAB PO ONE (19:58)
[2022-03-06] MEDS: MORPHINE 4 MG/ML SYR IV PRN ×5 (01:03→21:19)
[2022-03-06] MEDS: HYDROCORTISONE SUC 100 MG INJ IV SCH ×3 (01:03→15:53)
[2022-03-06] MEDS: PIPER TAZO 3.375 GM in NA CHLORIDE 0.9% 100 ML IV SCH ×3 (01:04→15:51)
[2022-03-06] MEDS: VANCOMYCIN 1.5 GM in NA CHLORIDE 0.9% 500 ML IVPB SCH ×2 (05:58→17:00)
[2022-03-06] MEDS: ASPIRIN EC 81 MG TAB PO SCH (09:42)
--- NOTE | 2022-03-06 14:30 | P.PN ---
Subjective Date of Service: 03/06/22 Chief Complaint: Left upper extremity cellulitis Subjective: No new changes Physical Examination - Vital Signs Temperature: 97.8 F Blood Pressure: 127/67 Pulse: 67 Respirations: 16 Pulse Ox (%): 99 - Studies Medications List Reviewed: Yes Assessment And Plan Physician Review: Patient Assessed, Agree with Above Assessment and Plan Physician Review Additional Text: 03/06/22 14:30 - Physical Exam General: Alert, In no apparent distress, Oriented x3 Respiratory: Clear to auscultation bilaterally, Normal air movement Cardiovascular: Regular rate/rhythm, Normal S1 S2, No murmurs Gastrointestinal: Normal bowel sounds, Soft and benign, Non-distended, No tenderness Musculoskeletal: No clubbing, No swelling, No tenderness Neurological: Sensation intact, Cranial nerves 3-12 intact Assessment & Plan - Problems (Diagnosis) (1) Thrombophlebitis Current Visit: Yes Status: Acute (2) Cellulitis Current Visit: Yes Status: Acute (3) History of intracranial hemorrhage Current Visit: Yes Status: Acute - Plan Pain symptoms Continue current pain management regimen Continue antibiotics and local wound care LFTs trended down, prior history of alcohol use, continue to follow If further improvement in the Lfts in am, may be considered plan for discharge Otherwise may need GI evaluation 4. Strict blood sugar monitoring 5. Pain control 7. GI and DVT prophylaxis
[2022-03-06] MEDS: ENOXAPARIN 40 MG/0.4 ML SQ SCH (15:52)
[2022-03-06] MEDS: VANCOMYCIN 1.75 GM in NA CHLORIDE 0.9% 500 ML IVPB SCH (18:07)
[2022-03-06] MEDS: NICOTINE 21 MG/PAT TD SCH (18:07)
[2022-03-07] MEDS: HYDROCORTISONE SUC 100 MG INJ IV SCH ×2 (00:27→08:30)
[2022-03-07] MEDS: PIPER TAZO 3.375 GM in NA CHLORIDE 0.9% 100 ML IV SCH ×2 (00:28→08:30)
[2022-03-07] MEDS: MORPHINE 4 MG/ML SYR IV PRN ×2 (04:15→08:30)
[2022-03-07] MEDS: VANCOMYCIN 1.75 GM in NA CHLORIDE 0.9% 500 ML IVPB SCH (05:58)
[2022-03-07 06:17] LABS: Albumin 2.8 g/dL (3.4-5.0); Bilirubin Total 0.3 mg/dL (0.2-1.0); Potassium 3.7 mmol/L (3.5-5.1); Protein, Total 6.5 g/dL (6.4-8.2)
[2022-03-07] MEDS: NICOTINE 21 MG/PAT TD SCH (08:29)
[2022-03-07] MEDS: ASPIRIN EC 81 MG TAB PO SCH (08:29)
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
[2022-03-07 10:53] VITALS: BP 134/82; TEMP 97.9
[2022-03-07] MEDS ORDERED: VANCOMYCIN 1.5 GM in NA CHLORIDE 0.9% 500 ML IVPB SCH (21:00)
== END 2022-03-07 11:43 | disposition home or self-care (01) | DRG 300 ==
LOC: ER 07:48 → INTOOBSV 13:21 → ERHOLD 13:21 → OBSVTOIN 13:21 → 2ND 14:45 → OBSVTOIN 03-04 08:32
PROVIDERS: ADMIT Hospitalist; ATTEND Internal Medicine
DX: I80.8 Phlebitis and thrombophlebitis of other sites (principal); L03.114 Cellulitis of left upper limb; G44.309 Post-traumatic headache, unspecified, not intractable; J01.40 Acute pansinusitis, unspecified; F17.200 Nicotine dependence, unspecified, uncomplicated; Z20.822 Contact with and (suspected) exposure to COVID-19; Z86.19 Personal history of other infectious and parasitic diseases; Z87.820 Personal history of traumatic brain injury
CPT/HCPCS: 36415; 70450; 80053; 80202; 83970; 85025; 85610; 93971; 96365; 96372; 96375; 99285; G0378; J0295; J1650; J1720; J2270; J2405; J2543; J3370; J7030; J7040; J7050; U0003